=== PATIENT | female | born 1955 | race Caucasian/White ===

== ENCOUNTER 2017-10-09 14:57 | Inpatient (IN) | payer BC ==
[~2017-10-09] VITALS: Ht 157.5 cm; Wt 71.3 kg
[~2017-10-09 14:57] MED LIST: ALPR0.5T99 PO; LEXA20TA PO; LIPI40TA PO; OMEP20TA PO; TRAZ50TA4 PO
[2017-10-09 14:59] VITALS: BP 162/77; PULSE 132; RESP 19; TEMP 98.1; O2SAT 98
[2017-10-09] MEDS ORDERED: OMEP20TA93 PO (15:29)
[2017-10-09] MEDS ORDERED: TRAM50TA PO (15:29)
[2017-10-09] MEDS ORDERED: GABA300C5 PO (15:29)
[2017-10-09] MEDS ORDERED: ATOR20TA15 PO (15:29)
[2017-10-09] MEDS ORDERED: PREM0.3T2 PO (15:29)
[2017-10-09] MEDS ORDERED: DICY10 PO (15:29)
[2017-10-09] MEDS ORDERED: FENO160T PO (15:29)
[2017-10-09] MEDS ORDERED: GLIP5TAB8 PO (15:29)
[2017-10-09] MEDS ORDERED: LOSA50TA PO (15:29)
[2017-10-09] MEDS ORDERED: ALPR0.5T3 PO (15:29)
[2017-10-09] MEDS ORDERED: TRAZ100T10 PO (15:29)
[2017-10-09] MEDS ORDERED: METO1TAB42 PO (15:29)
[2017-10-09] MEDS ORDERED: DIATRIZOATE MEGLUM/DIATRIZOATE SOD 9 ML CUP ONE (15:44)
[2017-10-09] MEDS ORDERED: SODIUM CHLOR 0.9% 1000 ML INJ 1,000 ML IV SCH (15:48)
[2017-10-09 15:55] VITALS: O2SAT 96
[2017-10-09] MEDS ORDERED: MORPHINE SULFATE 4 MG/ML INJ IV PUSH ONE (16:00)
[2017-10-09] MEDS ORDERED: ONDANSETRON HCL 4 MG/2 ML VIAL IVP ONE (16:00)
[2017-10-09] MEDS ORDERED: SODIUM CHLORIDE 0.9% FLUSH 10 ML FLUSH IV FLUSH PRN ×2 (16:00→19:45)
--- NOTE | 2017-10-09 16:02 | PD ---
HPI Chief Complaint: Abdominal Pain Time Seen by Provider: 15:36 Travel History International Travel<30 days: No Contact w/Intl Traveler<30days: No Traveled to known affect area: No History of Present Illness HPI Diagnoses a 62-year-old female who presents today with complaints of abdominal pain 24 hours. Patient reports started in her lower suprapubic area and now has radiated up to her infraumbilical area. She reports the pain as sharp and colicky. She states that the pain is severe and an 8-10 out of 10 on the pain scale. She denies any vomiting. She reports nausea. The patient had recent carpal tunnel surgery and ulnar nerve release on her right upper extremity. She states at that time she was taking pain medicines. She states when she was taking the pain medicines, she had constipation. She reports that she would have to strain over her bowel movements at that time. She reports today that she had a normal soft stool. There is no reported dysuria, urgency, frequency. She denies any vaginal discharge or vaginal bleeding. Please note that she did have a D&C 2 and half months ago for polyps in her uterus. She states that shortly thereafter she had some blood clots passing from her vagina. She denies any clots or discharge for several weeks. There are no other complaints time my examination. PFSH Past Medical History Heart Rhythm Problems: No Cardiac Catheterization: No Cardiovascular Problems: No High Cholesterol: Yes Congestive Heart Failure: No Diabetes: Yes Patient Takes Glucophage: Yes GERD: Yes Immunizations Current: No Tetanus Vaccination: < 5 Years Influenza Vaccination: No ?: Not Menopausal: Yes Past Surgical History Cholecystectomy: Yes Coronary Artery Bypass Graft: No Social History Alcohol Use: Yes (OCC) Tobacco Use: No Substance Use: No Allergies-Medications (Allergen,Severity, Reaction): Coded Allergies: No Known Allergies (Unverified Adverse Reaction, Unknown, 10/09/17) Reported Meds & Prescriptions Reported Meds & Active Scripts Active Reported Bentyl (Dicyclomine HCl) 10 Mg Cap 10 Mg PO TID PRN Trazodone (Trazodone HCl) 100 Mg Tablet 100 Mg PO HS Tramadol (Tramadol HCl) 50 Mg Tab 50 Mg PO Q6H PRN Alprazolam 0.5 Mg Tab 0.5 Mg PO Q4H PRN Gabapentin 300 Mg Cap 300 Mg PO BID Metoprolol Succinate ER 24 HR (Metoprolol Succinate) 25 Mg Tab 25 Mg PO DAILY Fenofibrate 160 Mg Tab 160 Mg PO DAILY Atorvastatin (Atorvastatin Calcium) 20 Mg Tab 20 Mg PO HS Losartan (Losartan Potassium) 50 Mg Tab 50 Mg PO DAILY Prempro Blister Pack (Estrogens Conj/Medroxyprogest Acet) 0.3-1.5 Mg Tab 1 Tab PO DAILY Omeprazole 20 Mg Tab 20 Mg PO DAILY Glipizide 5 Mg Tab 2.5 Mg PO BIDAC Take 30 minutes before a meal Review of Systems Except as stated in HPI: all other systems reviewed are Neg General / Constitutional: No: Fever, Chills HENT: No: Headaches, Lightheadedness, Neck Pain Cardiovascular: No: Chest Pain or Discomfort, Palpitations Respiratory: No: Cough, Shortness of Breath Gastrointestinal: Positive: Nausea, Abdominal Pain, No: Vomiting, Diarrhea, Hematochezia Genitourinary: No: Frequency, Dysuria, Discharge, Vaginal Bleeding Musculoskeletal: Positive: Other (patient had carpal tunnel surgery and ulnar nerve release previously.), No: Weakness, Pain Skin: No Rash, No Lesions Neurologic: No: Weakness, Dizziness, Headache Physical Exam Narrative GENERAL: Well-developed well-nourished female in no obvious respiratory distress. SKIN: Focused skin assessment warm/dry. HEAD: Atraumatic. Normocephalic. EYES: Pupils equal and round. No scleral icterus. No injection or drainage. ENT: No nasal bleeding or discharge. Mucous membranes pink and moist. NECK: Trachea midline. No JVD. CARDIOVASCULAR: Sinus tach with a rate of 120. No murmur appreciated. RESPIRATORY: No accessory muscle use. Clear to auscultation. Breath sounds equal bilaterally. GASTROINTESTINAL: Abdomen soft, slightly distended. There is tenderness to palpation in her periumbilical and bilateral lower abdominal segment. There is no rebound but there is voluntary guarding. MUSCULOSKELETAL: No obvious deformities. No clubbing. No cyanosis. No edema. NEUROLOGICAL: Awake and alert. No obvious cranial nerve deficits. Motor grossly within normal limits. Normal speech. PSYCHIATRIC: Appropriate mood and affect; insight and judgment normal. Data Data Last Documented VS Vital Signs Date Time Temp Pulse Resp B/P (MAP) Pulse Ox O2 Delivery O2 Flow Rate FiO2 10/09/17 19:20 115 16 122/56 (78) 93 Room Air 10/09/17 14:59 98.1 Orders Orders Diatrizoate Liq (Md Tavares Liq) (10/09/17 15:44) Complete Blood Count With Diff (10/09/17 15:48) Comprehensive Metabolic Panel (10/09/17 15:48) Lipase (10/09/17 15:48) Urinalysis - C+S If Indicated (10/09/17 15:48) Ct Abd/Pel W Iv Contrast(Rout) (10/09/17 15:48) Iv Access Insert/Monitor (10/09/17 15:48) Ecg Monitoring (10/09/17 15:48) Oximetry (10/09/17 15:48) Morphine Inj (Morphine Inj) (10/09/17 16:00) Ondansetron Inj (Zofran Inj) (10/09/17 16:00) Sodium Chlor 0.9% 1000 Ml Inj (Ns 1000 M (10/09/17 15:48) Sodium Chloride 0.9% Flush (Ns Flush) (10/09/17 16:00) Oral Contrast - Adult (10/09/17 15:54) Hydromorphone Pf Inj (Dilaudid Pf Inj) (10/09/17 17:30) Iohexol 350 Inj (Omnipaque 350 Inj) (10/09/17 18:22) Levofloxacin 750 Mg Premix Inj (Levaquin (10/09/17 18:45) Metronidazole 500 Mg Inj (Flagyl 500 Mg (10/09/17 18:45) Hydromorphone Pf Inj (Dilaudid Pf Inj) (10/09/17 18:45) Admit Order (Ed Use Only) (10/09/17 19:32) Labs Laboratory Tests Test 10/09/17 15:30 10/09/17 16:30 White Blood Count 17.0 TH/MM3 Red Blood Count 5.31 MIL/MM3 Hemoglobin 14.3 GM/DL Hematocrit 41.8 % Mean Corpuscular Volume 78.6 FL Mean Corpuscular Hemoglobin 26.9 PG Mean Corpuscular Hemoglobin Concent 34.3 % Red Cell Distribution Width 13.6 % Platelet Count 331 TH/MM3 Mean Platelet Volume 8.6 FL Neutrophils (%) (Auto) 83.7 % Lymphocytes (%) (Auto) 10.1 % Monocytes (%) (Auto) 5.0 % Eosinophils (%) (Auto) 0.7 % Basophils (%) (Auto) 0.5 % Neutrophils # (Auto) 14.2 TH/MM3 Lymphocytes # (Auto) 1.7 TH/MM3 Monocytes # (Auto) 0.9 TH/MM3 Eosinophils # (Auto) 0.1 TH/MM3 Basophils # (Auto) 0.1 TH/MM3 CBC Comment DIFF FINAL Differential Comment Blood Urea Nitrogen 17 MG/DL Creatinine 0.68 MG/DL Random Glucose 133 MG/DL Total Protein 7.5 GM/DL Albumin 3.2 GM/DL Calcium Level 8.9 MG/DL Alkaline Phosphatase 77 U/L Aspartate Amino Transf (AST/SGOT) 52 U/L Alanine Aminotransferase (ALT/SGPT) 39 U/L Total Bilirubin 0.5 MG/DL Sodium Level 131 MEQ/L Potassium Level 4.2 MEQ/L Chloride Level 99 MEQ/L Carbon Dioxide Level 20.7 MEQ/L Anion Gap 11 MEQ/L Estimat Glomerular Filtration Rate 88 ML/MIN Lipase 206 U/L Urine Color LIGHT-YELLOW Urine Turbidity CLEAR Urine pH 5.0 Urine Specific Correll 1.009 Urine Protein NEG mg/dL Urine Glucose (UA) NEG mg/dL Urine Ketones NEG mg/dL Urine Occult Blood NEG Urine Nitrite NEG Urine Bilirubin NEG Urine Urobilinogen LESS THAN 2.0 MG/DL Urine Leukocyte Esterase NEG Urine Squamous Epithelial Cells <1 /hpf Microscopic Urinalysis Comment CULT NOT INDICATED MDM Medical Decision Making Medical Screen Exam Complete: Yes Emergency Medical Condition: Yes Differential Diagnosis Appendicitis versus diverticulitis versus cystitis Narrative Course 62-year-old female presents with complaints of abdominal pain. Patient reports severe abdominal pain started in the suprapubic area and his workup to the infraumbilical area. Patient is white count 17,000. Patient also has persistent tachycardia in the 120s. CT scan shows diverticulitis with no evidence of abscess or perforation. She is received 3 doses of IV pain medicine. She's been started on Levaquin and Flagyl. She does meet sepsis criteria by white count and tachycardia. Case was discussed with Dr. Shira Swain, [facility], who agrees with the admission. Sepsis Criteria SIRS Criteria (2 or more): Heart rate over 90, WBC > 60552, < 4000 or > 10% bands Sepsis Criteria (SIRS+source): Infect source susp/known Diagnosis Primary Impression: Acute diverticulitis Additional Impressions: Leukocytosis Intractable pain persistent tachycardia Admitting Information Admitting Physician Requests: Admit Qamar Briscoe MD Oct 09, 2017 16:02
[2017-10-09 16:29] LABS: AUTOMATED NEUTROPHIL # 14.2 TH/MM3 (1.8-7.7); BASOPHIL # 0.1 TH/MM3 (0-0.2); BASOPHIL % 0.5 % (0.0-2.0); EOSINOPHIL # 0.1 TH/MM3 (0-0.4); EOSINOPHIL % 0.7 % (0.0-4.0); HEMATOCRIT 41.8 % (35.0-46.0); HEMO FLAGS DIFF FINAL; LYMPH % 10.1 % (9.0-44.0); LYMPHOCYTE # 1.7 TH/MM3 (1.0-4.8); MEAN CELL VOLUME 78.6 FL (80.0-100.0); MEAN CORPUSCULAR HEMOGLOBIN 26.9 PG (27.0-34.0); MEAN CORPUSCULAR HGB CONC 34.3 % (32.0-36.0); NEUT % 83.7 % (16.0-70.0); PLATELET COUNT 331 TH/MM3 (150-450); RED BLOOD COUNT 5.31 MIL/MM3 (4.00-5.30); RED CELL DISTRIBUTION WIDTH 13.6 % (11.6-17.2)
[2017-10-09 16:59] LABS: ALKALINE PHOSPHATASE 77 U/L (45-117); TOTAL BILIRUBIN ADULT 0.5 MG/DL (0.2-1.0)
[2017-10-09 17:04] LABS: BLOOD, URINE NEG (NEG); COMMENT (UR) CULT NOT INDICATED; CULTURE IF INDICATED CULT NOT INDICATED; GLUCOSE,URINE NEG (NEG); KETONE, URINE NEG (NEG); NITRITE,URINE NEG (NEG); SQUAMOUS EPITHELIAL CELL URINE <1 /hpf (0-5); URINE COLOR LIGHT-YELLOW (YELLW/STRAW)
[2017-10-09 17:14] LABS: ALT (GPT) 39 U/L (10-53)
[2017-10-09 17:19] LABS: ANION GAP 11 MEQ/L (5-15); BICARBONATE 20.7 MEQ/L (21.0-32.0); BLOOD UREA NITROGEN 17 MG/DL (7-18); CHLORIDE 99 MEQ/L (98-107); GLOMERULAR FILTRATION RATE 88 ML/MIN (>89); SODIUM (NA) 131 MEQ/L (136-145)
[2017-10-09 17:20] LABS: AST (GOT) 52 U/L (15-37); POTASSIUM 4.2 MEQ/L (3.5-5.1)
[2017-10-09 17:29] VITALS: BP 120/56; PULSE 118; RESP 20; O2SAT 97
[2017-10-09] MEDS ORDERED: HYDROmorphone HCL PF 1 MG/ML VIAL IV PUSH ONE ×2 (17:30→18:45)
[2017-10-09] MEDS ORDERED: IOHEXOL 350 MG/ML 10 ML VIAL (for RAD DIAG) IVCONTRAST ONE (18:22)
--- NOTE | 2017-10-09 18:29 | RADRPT ---
EXAM DATE/TIME: 10/09/2017 18:06 [facility] COMPARISON: No previous studies available for comparison. INDICATIONS : Abdominal pain, nausea. IV CONTRAST: 96 cc Omnipaque 350 (iohexol) IV ORAL CONTRAST: Prescribed oral contrast ingested. RADIATION DOSE: 7.33 CTDIvol (mGy) MEDICAL HISTORY : Diabetes SURGICAL HISTORY : Cholecystectomy. ENCOUNTER: Initial ACUITY: 1 day PAIN SCALE: 8/10 LOCATION: middle abdomen TECHNIQUE: Volumetric scanning of the abdomen and pelvis was performed. Using automated exposure control and ad justment of the mA and/or kV according to patient size, radiation dose was kept as low as reasonably achievable to obtain optimal diagnostic quality images. DICOM format image data is available electro nically for review and comparison. FINDINGS: LOWER LUNGS: Bibasilar atelectasis. LIVER: Homogeneous density without lesion. There is no dilation of the biliary tree. Gallbladder is surgica lly absent. SPLEEN: Normal size without lesion. PANCREAS: Within normal limits. KIDNEYS: Normal in size and shape. There is no mass or hydronephrosis. Tiny bilateral cortical renal cysts. A 2 mm nonobstructing right renal stone involving the lower pole. ADRENAL GLANDS: Within normal limits. VASCULAR: There is no aortic aneurysm. BOWEL/MESENTERY: There is circumferential wall thickening and mild stranding in the adjacent fat involving the mid sig moid colon. Multiple diverticula are noted within this region. The colon is normal in caliber through out. Small bowel and stomach are unremarkable. No free air or free fluid. Note is made of some thicke phan of the omentum directly adjacent to the sigmoid colon within the anterior aspects of the periton eal cavity. No discrete nodularity or mass observed. This thickening is relatively smooth in appearan ce. ABDOMINAL WALL: Within normal limits. RETROPERITONEUM: There is no lymphadenopathy. BLADDER: No wall thickening or mass. REPRODUCTIVE: Within normal limits. INGUINAL: There is no lymphadenopathy or hernia. MUSCULOSKELETAL: Within normal limits for patient age. CONCLUSION: 1. Acute sigmoid diverticulitis without perforation, abscess, or obstruction. 2. Mild smooth thickening of the omentum adjacent to the inflammatory process within the sigmoid colo n. No discrete mass observed. This is felt to be reactive. 3. Prior cholecystectomy. 4. 2 mm nonobstructing right renal stone. Brian Leon Jr., MD on October 09, 2017 at 18:23 Board Certified Radiologist. This report was verified electronically.
[2017-10-09] MEDS ORDERED: LEVOFLOXACIN 750 MG PREMIX INJ 150 ML IV SCH (18:45)
[2017-10-09] MEDS ORDERED: metroNIDAZOLE 500 MG INJ 100 ML IV ONE (18:45)
[2017-10-09 19:20] VITALS: BP 122/56; PULSE 115; RESP 16; O2SAT 93
--- NOTE | 2017-10-09 19:41 | HHI.HP ---
HPI Service [facility] Primary Care Physician [facility] [place] Admission Diagnosis Diverticulitis, intractable pain, tachycardia, leukocytosis Diagnoses: (1) SIRS (systemic inflammatory response syndrome) Diagnosis: Principal (2) Diverticulitis Diagnosis: Principal (3) Dehydration Diagnosis: Principal (4) DM (diabetes mellitus) Diagnosis: Principal Travel History International Travel<30 Days: No Contact w/Intl Traveler <30 Da: No Traveled to Known Affected Are: No History of Present Illness This is a 62-year-old female with a PMH of HTN, Hyperlipidemia and DM who presented to the ER with complaints of abdominal pain x2 days w/ associated nausea, no vomiting. Denies fever, chills or diarrhea. On arrival, BP 120/56, HR 118, O2 sat 97% on RA, Afebrile. W WBC 17. Chemistry unremarkable. Her GFR 88. UA negative. CT Abd/Pelvis w/ acute sigmoid diverticulitis without perforation or abscess or obstruction, mild smooth thickening of omentum, no discrete abscess noted. S/p Levaquin/Flagyl in ER. Review of Systems Except as stated in HPI: all other systems reviewed are Neg ROS: 14 point review of systems otherwise negative. Past Family Social History Past Medical History PMH: HTN, Hyperlipidemia and DM Past Surgical History PAST SURGICAL HISTORY: Cholecystectomy Allergies: Coded Allergies: No Known Allergies (Unverified Adverse Reaction, Unknown, 10/09/17) Family History PAST FAMILY HISTORY: Reviewed. No h/o DM or CAD Social History PAST SOCIAL HISTORY: Occasional alcohol. Negative for tobacco or drugs. Physical Exam Vital Signs Vital Signs Date Time Temp Pulse Resp B/P (MAP) Pulse Ox O2 Delivery O2 Flow Rate FiO2 10/09/17 19:20 115 16 122/56 (78) 93 Room Air 10/09/17 17:29 118 20 120/56 (77) 97 Room Air 10/09/17 15:55 96 Room Air 10/09/17 15:20 18 10/09/17 14:59 98.1 132 19 162/77 (105) 98 Physical Exam PE: GENERAL: Pleasant middle-aged white female in no acute distress. HEENT: PERRLA, EOMI. No scleral icterus or conjunctival pallor. No lid lag or facial droop. CARDIOVASCULAR: Regular rate and rhythm. No obvious murmurs to auscultation. No chest tenderness to palpation. RESPIRATORY: No obvious rhonchi or wheezing. Clear to auscultation. Breath sounds equal bilaterally. GASTROINTESTINAL: Abdomen soft, generalized tenderness to palpation, nondistended. BS normal. MUSCULOSKELETAL: Extremities without clubbing, cyanosis, or edema. No obvious deformities. NEUROLOGICAL: Awake, alert and oriented x4. No focal neurologic deficits. Moving both upper and lower extremities spontaneously. Laboratory Laboratory Tests Test 10/09/17 15:30 10/09/17 16:30 White Blood Count 17.0 Red Blood Count 5.31 Hemoglobin 14.3 Hematocrit 41.8 Mean Corpuscular Volume 78.6 Mean Corpuscular Hemoglobin 26.9 Mean Corpuscular Hemoglobin Concent 34.3 Red Cell Distribution Width 13.6 Platelet Count 331 Mean Platelet Volume 8.6 Neutrophils (%) (Auto) 83.7 Lymphocytes (%) (Auto) 10.1 Monocytes (%) (Auto) 5.0 Eosinophils (%) (Auto) 0.7 Basophils (%) (Auto) 0.5 Neutrophils # (Auto) 14.2 Lymphocytes # (Auto) 1.7 Monocytes # (Auto) 0.9 Eosinophils # (Auto) 0.1 Basophils # (Auto) 0.1 CBC Comment DIFF FINAL Differential Comment Blood Urea Nitrogen 17 Creatinine 0.68 Random Glucose 133 Total Protein 7.5 Albumin 3.2 Calcium Level 8.9 Alkaline Phosphatase 77 Aspartate Amino Transf (AST/SGOT) 52 Alanine Aminotransferase (ALT/SGPT) 39 Total Bilirubin 0.5 Sodium Level 131 Potassium Level 4.2 Chloride Level 99 Carbon Dioxide Level 20.7 Anion Gap 11 Estimat Glomerular Filtration Rate 88 Lipase 206 Urine Color LIGHT-YELLOW Urine Turbidity CLEAR Urine pH 5.0 Urine Specific Leiter 1.009 Urine Protein NEG Urine Glucose (UA) NEG Urine Ketones NEG Urine Occult Blood NEG Urine Nitrite NEG Urine Bilirubin NEG Urine Urobilinogen LESS THAN 2.0 Urine Leukocyte Esterase NEG Urine Squamous Epithelial Cells <1 Microscopic Urinalysis Comment CULT NOT INDICATED Result Diagram: 10/09/17 15310/09/171529 Caprini VTE Risk Assessment Caprini VTE Risk Assessment: No/Low Risk (score <= 1) Caprini Risk Assessment Model Point Value = 1 Point Value = 2 Point Value = 3 Point Value = 5 Age 41-60 Minor surgery BMI > 25 kg/m2 Swollen legs Varicose veins or History of unexplained or recurrent spontaneous Oral contraceptives or hormone replacement Sepsis (< 1 month) Serious lung disease, including pneumonia (< 1 month) Abnormal pulmonary function Acute myocardial infarction Congestive heart failure (< 1 month) History of inflammatory bowel disease Medical patient at bed rest Age 61-74 Arthroscopic surgery Major open surgery (> 45 min) Laparoscopic surgery (> 45 min) Malignancy Confined to bed (> 72 hours) Immobilizing plaster cast Central venous access Age >= 75 History of VTE Family history of VTE Factor V Leiden Prothrombin [id number] Lupus anticoagulant Anticardiolipin antibodies Elevated serum homocysteine Heparin-induced thrombocytopenia Other congenital or acquired thrombophilia Stroke (< 1 month) Elective arthroplasty Hip, pelvis, or leg fracture Acute spinal cord injury (< 1 month) Prophylaxis Regimen Total Risk Factor Score Risk Level Prophylaxis Regimen 0-1 Low Early ambulation 2 Moderate Order ONE of the following: *Sequential Compression Device (SCD) *Heparin 5000 units SQ BID 3-4 Higher Order ONE of the following medications: *Heparin 5000 units SQ TID *Enoxaparin/Lovenox 40 mg SQ daily (WT < 150 kg, CrCl > 30 mL/min) *Enoxaparin/Lovenox 30 mg SQ daily (WT < 150 kg, CrCl > 10-29 mL/min) *Enoxaparin/Lovenox 30 mg SQ BID (WT < 150 kg, CrCl > 30 mL/min) AND/OR *Sequential Compression Device (SCD) 5 or more Highest Order ONE of the following medications: *Heparin 5000 units SQ TID (Preferred with Epidurals) *Enoxaparin/Lovenox 40 mg SQ daily (WT < 150 kg, CrCl > 30 mL/min) *Enoxaparin/Lovenox 30 mg SQ daily (WT < 150 kg, CrCl > 10-29 mL/min) *Enoxaparin/Lovenox 30 mg SQ BID (WT < 150 kg, CrCl > 30 mL/min) AND *Sequential Compression Device (SCD) Assessment and Plan Problem List: (1) SIRS (systemic inflammatory response syndrome) ICD Code: R65.10 - Systemic inflammatory response syndrome (SIRS) of non- infectious origin without acute organ dysfunction (2) Diverticulitis ICD Code: K57.92 - Diverticulitis of intestine, part unspecified, without perforation or abscess without bleeding (3) Dehydration ICD Code: E86.0 - Dehydration (4) DM (diabetes mellitus) ICD Code: E11.9 - Type 2 diabetes mellitus without complications Assessment and Plan A/P: 1. SIRS: HR 115, WBC 17, Source-Diverticulitis, s/p IV Abx in ER, will continue, repeat labs in am 2. Diverticulitis: acute onset of generalized abdominal pain, CT Abd/Pelvis w / acute sigmoid diverticulitis without perforation, abscess or obstruction. S/ p Levaquin/Flagyl in ER, will continue w/ IV Abx, analgesics/antiemetics as needed. 3. Dehydration: GFR 88. UA negative. IVF for hydration, repeat labs in a.m. 4. DM: Sliding scale with Accu-Cheks. Resume home Glipizide once taking adequate PO. 5. DVT Prophylaxis: SCD/teds. 6. overhead worker DC planning. 7. Case discussed at length with ER physician. Physician Certification 2 Midnight Certification Type: Admission for Inpatient Services Order for Inpatient Services The services are ordered in accordance with Medicare regulations or non- Medicare payer requirements, as applicable. In the case of services not specified as inpatient-only, they are appropriately provided as inpatient services in accordance with the 2-midnight benchmark. Estimated LOS (days): 2 days is the estimated time the patient will need to remain in the hospital, assuming treatment plan goals are met and no additional complications. Post-Hospital Plan: Home Shira Miramontes MD Oct 09, 2017 19:41
[2017-10-09] MEDS ORDERED: MAGNESIUM HYDROXIDE SUSP 30 ML CUP PO PRN (19:45)
[2017-10-09] MEDS ORDERED: MORPHINE SULFATE 4 MG/ML INJ IV PUSH PRN (19:45)
[2017-10-09] MEDS ORDERED: ALPRAZolam 0.5 MG TAB PO PRN (19:45)
[2017-10-09] MEDS ORDERED: SENNOSIDES 8.6 MG TAB PO PRN (19:45)
[2017-10-09] MEDS ORDERED: LACTULOSE SYRUP 20 GM/30 ML CUP PO PRN (19:45)
[2017-10-09] MEDS ORDERED: BISACODYL 10 MG SUPP RECTAL PRN (19:45)
[2017-10-09 20:01] VITALS: O2SAT 94
[2017-10-09 20:38] VITALS: BP 129/64; PULSE 100; RESP 16; TEMP 97.3; O2SAT 98
[2017-10-09] MEDS: ATORVASTATIN 20 MG TAB PO SCH (22:02)
[2017-10-09] MEDS: traZODone HCL 100 MG TAB PO SCH (22:03)
[2017-10-09] MEDS: DOCUSATE SODIUM 50 MG/SENNA 8.6 MG TAB PO SCH (22:03)
[2017-10-09] MEDS: GABAPENTIN 300 MG CAP PO SCH (22:04)
[2017-10-09] MEDS: SODIUM CHLOR 0.9% 1000 ML INJ 1,000 ML IV SCH (22:05)
[2017-10-09] MEDS: SODIUM CHLORIDE 0.9% FLUSH 10 ML FLUSH IV FLUSH SCH (22:05)
[2017-10-09] MEDS: ACETAMINOPHEN/HYDROcodone 325 MG/5 MG TAB PO PRN (22:17)
[2017-10-09] MEDS: PIPERACIL-TAZO 3.375 GM PREMIX 50 ML IV SCH (23:12)
[2017-10-10 00:10] VITALS: BP 118/59; PULSE 100; RESP 17; TEMP 97.4; O2SAT 95
[2017-10-10] MEDS: SODIUM CHLOR 0.9% 1000 ML INJ 1,000 ML IV SCH (03:46)
[2017-10-10] MEDS: ACETAMINOPHEN/HYDROcodone 325 MG/5 MG TAB PO PRN ×2 (03:46→08:30)
[2017-10-10 04:00] VITALS: BP 118/56; PULSE 96; RESP 17; TEMP 96.1; O2SAT 97
[2017-10-10] MEDS: PIPERACIL-TAZO 3.375 GM PREMIX 50 ML IV SCH (05:51)
[2017-10-10 07:04] LABS: ALKALINE PHOSPHATASE 58 U/L (45-117); ALT (GPT) 23 U/L (10-53); ANION GAP 11 MEQ/L (5-15); AST (GOT) 16 U/L (15-37); BICARBONATE 20.8 MEQ/L (21.0-32.0); BLOOD UREA NITROGEN 10 MG/DL (7-18); CHLORIDE 104 MEQ/L (98-107); GLOMERULAR FILTRATION RATE 108 ML/MIN (>89); POTASSIUM 3.6 MEQ/L (3.5-5.1); SODIUM (NA) 136 MEQ/L (136-145); TOTAL BILIRUBIN ADULT 0.5 MG/DL (0.2-1.0)
[2017-10-10 07:17] LABS: AUTOMATED NEUTROPHIL # 7.2 TH/MM3 (1.8-7.7); BASOPHIL % 0.3 % (0.0-2.0); EOSINOPHIL # 0.1 TH/MM3 (0-0.4); EOSINOPHIL % 1.4 % (0.0-4.0); HEMATOCRIT 33.5 % (35.0-46.0); HEMO FLAGS DIFF FINAL; LYMPH % 18.9 % (9.0-44.0); LYMPHOCYTE # 1.9 TH/MM3 (1.0-4.8); MEAN CELL VOLUME 77.7 FL (80.0-100.0); MEAN CORPUSCULAR HEMOGLOBIN 26.2 PG (27.0-34.0); MEAN CORPUSCULAR HGB CONC 33.7 % (32.0-36.0); MONO % 5.6 % (0.0-8.0); NEUT % 73.8 % (16.0-70.0); PLATELET COUNT 228 TH/MM3 (150-450); RED BLOOD COUNT 4.32 MIL/MM3 (4.00-5.30); RED CELL DISTRIBUTION WIDTH 13.8 % (11.6-17.2); WHITE BLOOD COUNT 9.8 TH/MM3 (4.0-11.0)
[2017-10-10 08:00] VITALS: BP 129/62; PULSE 97; RESP 17; TEMP 97.4; O2SAT 96
[2017-10-10] MEDS: ONDANSETRON HCL 4 MG/2 ML VIAL IVP PRN ×2 (08:28→13:43)
[2017-10-10] MEDS: METOPROLOL SUCCINATE 25 MG EXTENDED RELEASE TAB PO SCH (08:29)
[2017-10-10] MEDS: FENOFIBRATE 145 MG TAB PO SCH (08:29)
[2017-10-10] MEDS: LOSARTAN 50 MG TAB PO SCH (08:29)
[2017-10-10] MEDS: GABAPENTIN 300 MG CAP PO SCH ×2 (08:29→21:20)
[2017-10-10] MEDS: DOCUSATE SODIUM 50 MG/SENNA 8.6 MG TAB PO SCH ×2 (08:29→21:20)
[2017-10-10] MEDS: PANTOPRAZOLE SOD 20 MG DELAYED RELEASE TAB PO SCH (08:29)
[2017-10-10] MEDS: SODIUM CHLORIDE 0.9% FLUSH 10 ML FLUSH IV FLUSH SCH ×2 (08:31→21:20)
--- NOTE | 2017-10-10 09:22 | HHI.PR ---
Subjective Remarks Follow up diverticulitis, sepsis. Patient continues to have significant abdominal pain, worse in the left lower quadrant. Reports nausea, but no vomiting. No fever, chills, night sweats. Denies chest pain or dyspnea. Objective Vitals Vital Signs Date Time Temp Pulse Resp B/P (MAP) Pulse Ox O2 Delivery O2 Flow Rate FiO2 10/10/17 08:00 97.4 97 17 129/62 (84) 96 10/10/17 04:00 96.1 96 17 118/56 (76) 97 10/10/17 00:10 97.4 100 17 118/59 (78) 95 10/09/17 20:38 97.3 100 16 129/64 (85) 98 10/09/17 20:06 10/09/17 20:01 94 Nasal Cannula 2.00 10/09/17 19:20 115 16 122/56 (78) 93 Room Air 10/09/17 17:29 118 20 120/56 (77) 97 Room Air 10/09/17 15:55 96 Room Air 10/09/17 15:20 18 10/09/17 14:59 98.1 132 19 162/77 (105) 98 I/O 10/09/17 10/09/17 10/09/17 10/10/17 10/10/17 10/10/17 07:00 15:00 23:00 07:00 15:00 23:00 Intake Total 1000 ml 1319 ml Balance 1000 ml 1319 ml Intake Oral 480 ml IV Total 1000 ml 839 ml # Voids 2 Result Diagram: 10/10/17 0530 10/10/17 0530 Imaging Last Impressions Abdomen/Pelvis CT 10/09/17 1548 Signed Impressions: Service Date/Time: Monday, October 09, 2017 18:06 - CONCLUSION: 1. Acute sigmoid diverticulitis without perforation, abscess, or obstruction. 2. Mild smooth thickening of the omentum adjacent to the inflammatory process within the sigmoid colon. No discrete mass observed. This is felt to be reactive. 3. Prior cholecystectomy. 4. 2 mm nonobstructing right renal stone. Brian Leon Jr., MD Objective Remarks General: No acute distress. Heart: Regular rate and rhythm. No murmur. Lungs: Clear to auscultation bilaterally. No wheezes, rales, or rhonchi. Breathing is nonlabored. Abdomen: Soft, tender to palpation diffusely (greater in the left lower quadrant ), nondistended. Extremities: No lower extremity edema. Psych: Alert and oriented. Procedures None Urinary Catheter: No Vascular Central Line Catheter: No A/P Problem List: (1) Diverticulitis ICD Code: K57.92 - Diverticulitis of intestine, part unspecified, without perforation or abscess without bleeding (2) Dehydration ICD Code: E86.0 - Dehydration (3) DM (diabetes mellitus) ICD Code: E11.9 - Type 2 diabetes mellitus without complications (4) Sepsis ICD Code: A41.9 - Sepsis, unspecified organism Assessment and Plan 1. Sepsis: Patient met criteria upon admission with tachycardia, leukocytosis. Leukocytosis has resolved. Tachycardia has improved. Source is diverticulitis. Continue IV antibiotics. 2. Diverticulitis: CT abdomen/pelvis shows acute sigmoid diverticulitis without perforation/abscess/obstruction. Continue Levaquin, Flagyl. Continue pain control, anti-emetics. 3. Dehydration: Continue IV fluids. Improving. 4. Diabetes mellitus: Monitor Accu-Cheks and cover with sliding scale insulin. Hold glipizide until patient's oral intake is adequate. 5. DVT prophylaxis: TEMI Cheney. Maximo Hendrix MD Oct 10, 2017 09:22
[2017-10-10] MEDS: NS + KCL 20 MEQ INJ 1,000 ML IV SCH ×2 (10:20→17:45)
[2017-10-10] MEDS: metroNIDAZOLE 500 MG INJ 100 ML IV SCH ×2 (10:20→17:44)
[2017-10-10 11:35] VITALS: BP 130/62; PULSE 100; RESP 17; TEMP 97.3; O2SAT 92
[2017-10-10] MEDS: LEVOFLOXACIN 750 MG PREMIX INJ 150 ML IV SCH (11:43)
[2017-10-10] MEDS: LOW DOSE INSULIN NOVOLOG SUPPLEMENTAL SCALE SQ SCH ×3 (13:42→21:20)
[2017-10-10] MEDS: ACETAMINOPHEN 325 MG TAB PO PRN (13:43)
[2017-10-10] MEDS ORDERED: DEXTROSE 50% IN WATER 50 ML VIAL(D50) IV PUSH PRN (13:45)
[2017-10-10] MEDS ORDERED: GLUCAGON 1 MG/ML VIAL OTHER PRN (13:45)
[2017-10-10 16:00] VITALS: BP 137/76; PULSE 101; RESP 17; TEMP 97.6; O2SAT 92
[2017-10-10] MEDS ORDERED: PROMETHAZINE INJ 25 MG/ML VIAL IM ONE (19:45)
[2017-10-10 20:10] VITALS: BP 147/70; PULSE 105; RESP 18; TEMP 97.7; O2SAT 94
[2017-10-10] MEDS: ATORVASTATIN 20 MG TAB PO SCH (21:20)
[2017-10-10] MEDS: traZODone HCL 100 MG TAB PO SCH (21:20)
[2017-10-11 00:40] VITALS: BP 130/60; PULSE 107; RESP 18; TEMP 99.1; O2SAT 94
[2017-10-11] MEDS: ONDANSETRON HCL 4 MG/2 ML VIAL IVP PRN (03:57)
[2017-10-11] MEDS: metroNIDAZOLE 500 MG INJ 100 ML IV SCH ×2 (03:58→10:19)
[2017-10-11] MEDS: NS + KCL 20 MEQ INJ 1,000 ML IV SCH ×2 (04:02→10:21)
[2017-10-11 04:44] VITALS: BP 126/57; PULSE 109; RESP 18; TEMP 99.2; O2SAT 94
[2017-10-11] MEDS: ACETAMINOPHEN 325 MG TAB PO PRN (05:58)
[2017-10-11 07:06] LABS: AUTOMATED NEUTROPHIL # 7.1 TH/MM3 (1.8-7.7); BASOPHIL # 0.1 TH/MM3 (0-0.2); BASOPHIL % 0.6 % (0.0-2.0); EOSINOPHIL # 0.1 TH/MM3 (0-0.4); EOSINOPHIL % 0.7 % (0.0-4.0); HEMATOCRIT 35.9 % (35.0-46.0); HEMO FLAGS DIFF FINAL; LYMPH % 15.5 % (9.0-44.0); LYMPHOCYTE # 1.4 TH/MM3 (1.0-4.8); MEAN CELL VOLUME 78.6 FL (80.0-100.0); MEAN CORPUSCULAR HEMOGLOBIN 26.3 PG (27.0-34.0); MEAN CORPUSCULAR HGB CONC 33.5 % (32.0-36.0); NEUT % 77.2 % (16.0-70.0); PLATELET COUNT 235 TH/MM3 (150-450); RED BLOOD COUNT 4.56 MIL/MM3 (4.00-5.30); RED CELL DISTRIBUTION WIDTH 13.8 % (11.6-17.2); WHITE BLOOD COUNT 9.3 TH/MM3 (4.0-11.0)
[2017-10-11 07:27] LABS: BICARBONATE 22.7 MEQ/L (21.0-32.0); POTASSIUM 3.3 MEQ/L (3.5-5.1)
[2017-10-11] MEDS: PANTOPRAZOLE SOD 20 MG DELAYED RELEASE TAB PO SCH (07:42)
[2017-10-11] MEDS: FENOFIBRATE 145 MG TAB PO SCH (07:42)
[2017-10-11] MEDS: GABAPENTIN 300 MG CAP PO SCH (07:42)
[2017-10-11] MEDS: METOPROLOL SUCCINATE 25 MG EXTENDED RELEASE TAB PO SCH (07:42)
[2017-10-11] MEDS: DOCUSATE SODIUM 50 MG/SENNA 8.6 MG TAB PO SCH (07:42)
[2017-10-11] MEDS: LOSARTAN 50 MG TAB PO SCH (07:42)
[2017-10-11] MEDS: LEVOFLOXACIN 750 MG PREMIX INJ 150 ML IV SCH (07:43)
[2017-10-11] MEDS: LOW DOSE INSULIN NOVOLOG SUPPLEMENTAL SCALE SQ SCH ×2 (07:43→11:10)
[2017-10-11] MEDS: SODIUM CHLORIDE 0.9% FLUSH 10 ML FLUSH IV FLUSH SCH (07:43)
[2017-10-11 08:00] VITALS: BP 124/66; PULSE 95; RESP 18; TEMP 98.2; O2SAT 90
[2017-10-11] MEDS ORDERED: CIPR500T2 PO (11:32)
[2017-10-11] MEDS ORDERED: METR1TAB76 PO (11:32)
--- NOTE | 2017-10-11 11:32 | HHI.DCPOC ---
Discharge Care Plan Diagnosis: (1) Sepsis (2) DM (diabetes mellitus) (3) Diverticulitis Goals to Promote Your Health * To prevent worsening of your condition and complications * To maintain your health at the optimal level Directions to Meet Your Goals Take your medications as prescribed Follow your dietary instruction Follow activity as directed Keep your appointments as scheduled Take your immunizations and boosters as scheduled If your symptoms worsen call your PCP, if no PCP go to Urgent Care Center or Emergency Room Smoking is Dangerous to Your Health. Avoid second hand smoke Call the 24-hour hour crisis hotline for domestic abuse at Maximo Hendrix MD Oct 11, 2017 11:32
--- NOTE | 2017-10-11 11:35 | HHI.PR ---
Subjective Remarks Follow-up diverticulitis. Patient states that her abdominal pain is much better. No more nausea or vomiting. She is having loose stools. She wants to go home today. She is tolerating regular diet. Objective Vitals Vital Signs Date Time Temp Pulse Resp B/P (MAP) Pulse Ox O2 Delivery O2 Flow Rate FiO2 10/11/17 08:00 98.2 95 18 124/66 (85) 90 10/11/17 04:44 99.2 109 18 126/57 (80) 94 10/11/17 00:40 99.1 107 18 130/60 (83) 94 10/10/17 20:10 97.7 105 18 147/70 (95) 94 10/10/17 16:00 97.6 101 17 137/76 (96) 92 10/10/17 11:35 97.3 100 17 130/62 (84) 92 I/O 10/10/17 10/10/17 10/10/17 10/11/17 10/11/17 10/11/17 07:00 15:00 23:00 07:00 15:00 23:00 Intake Total 1319 ml 420 ml 783 ml 460 ml Balance 1319 ml 420 ml 783 ml 460 ml Intake Oral 480 ml 420 ml 240 ml 360 ml IV Total 839 ml 543 ml 100 ml # Voids 2 3 2 2 # Bowel Movements 0 2 1 Result Diagram: 10/11/17 0457 10/11/17 0457 Imaging Last Impressions Abdomen/Pelvis CT 10/09/17 1548 Signed Impressions: Service Date/Time: Monday, October 09, 2017 18:06 - CONCLUSION: 1. Acute sigmoid diverticulitis without perforation, abscess, or obstruction. 2. Mild smooth thickening of the omentum adjacent to the inflammatory process within the sigmoid colon. No discrete mass observed. This is felt to be reactive. 3. Prior cholecystectomy. 4. 2 mm nonobstructing right renal stone. Brian Leon Jr., MD Objective Remarks General: No acute distress. Heart: Regular rate and rhythm. No murmur. Lungs: Clear to auscultation bilaterally. No wheezes, rales, or rhonchi. Breathing is nonlabored. Abdomen: Soft, mild diffuse tenderness to palpation without rebound or guarding , nondistended. Extremities: No lower extremity edema. Psych: Alert and oriented. Procedures None Urinary Catheter: No Vascular Central Line Catheter: No A/P Problem List: (1) Diverticulitis ICD Code: K57.92 - Diverticulitis of intestine, part unspecified, without perforation or abscess without bleeding (2) Dehydration ICD Code: E86.0 - Dehydration (3) DM (diabetes mellitus) ICD Code: E11.9 - Type 2 diabetes mellitus without complications (4) Sepsis ICD Code: A41.9 - Sepsis, unspecified organism Assessment and Plan 1. Sepsis: Resolved. Patient met criteria upon admission with tachycardia, leukocytosis. Leukocytosis has resolved. Source is diverticulitis. Continue IV antibiotics. 2. Diverticulitis: Improving. CT abdomen/pelvis shows acute sigmoid diverticulitis without perforation/abscess/obstruction. Continue antibiotics. Continue pain control, anti-emetics. 3. Dehydration: Improved. 4. Diabetes mellitus: Monitor Accu-Cheks and cover with sliding scale insulin. Restart glipizide at discharge. 5. DVT prophylaxis: TEMI [place]ney. Discharge Planning Discharge home in stable condition. Follow-up with PCP as scheduled this week. Regular diet as tolerated. Activity as tolerated. Maximo Hendrix MD Oct 11, 2017 11:35
== END 2017-10-11 12:55 | disposition home or self-care (01) | DRG 872 ==
LOC: NEPC 14:57 → NEDA 19:35 → N06A 20:09
PROVIDERS: ADMIT Hospitalist; ATTEND Family Medicine
DX: A41.9 Sepsis, unspecified organism (principal); K57.32 Diverticulitis of large intestine without perforation or abscess without bleeding; I10 Essential (primary) hypertension; E11.9 Type 2 diabetes mellitus without complications; E86.0 Dehydration; E78.5 Hyperlipidemia, unspecified; K21.9 Gastro-esophageal reflux disease without esophagitis; Z79.84 Long term (current) use of oral hypoglycemic drugs
CPT/HCPCS: 74177; 80048; 80053; 81001; 82948; 83690; 85025; 96361; 96374; 96375; 96376; J1170; J1815; J1956; J2270; J2405; J2543; J2550; J3480; J7030; Q9963; Q9967

== ENCOUNTER 2018-03-05 16:17 | Inpatient (IN) | payer BC ==
[~2018-03-05] VITALS: Ht 157.5 cm; Wt 78.1 kg
[~2018-03-05 16:17] MED LIST changes: +ALPR0.5T3 PO; -ALPR0.5T99 PO; +ATOR20TA15 PO; +CIPR500T2 PO; +DICY10 PO; +FENO160T PO; +GABA300C5 PO; +GLIP5TAB8 PO; -LEXA20TA PO; -LIPI40TA PO; +LOSA50TA PO; +METO1TAB42 PO; +METR1TAB76 PO; -OMEP20TA PO; +OMEP20TA93 PO; +PREM0.3T2 PO; +TRAM50TA PO; +TRAZ100T10 PO; -TRAZ50TA4 PO
[2018-03-05 16:23] VITALS: BP 136/84; PULSE 124; RESP 22; TEMP 97.6; O2SAT 99
[2018-03-05 16:53] VITALS: BP 156/77; PULSE 123; RESP 18; O2SAT 97
[2018-03-05] MEDS ORDERED: PANTOPRAZOLE SOD 40 MG DELAYED RELEASE TAB PO ONE (17:00)
[2018-03-05] MEDS ORDERED: ALUMINUM/MAGNESIUM/SIMETH 30 ML CUP PO ONE (17:00)
[2018-03-05] MEDS ORDERED: ATROPINE/SCOPOLAM/HYOSCYAM/PB ELIXIR 10 ML CUP PO ONE (17:00)
--- NOTE | 2018-03-05 17:09 | PD ---
HPI Chief Complaint: Chest Pain Time Seen by Provider: 16:51 Travel History International Travel<30 days: No Contact w/Intl Traveler<30days: No Traveled to known affect area: No History of Present Illness HPI 62-year-old female complains of chest pain and epigastric abdominal pain. Patient states that the pain started this morning. Patient states that she has indigestion since this morning. Patient complained of burning pain and aching pain started in the epigastric area with radiation to the back. Patient states that she has nausea but no vomiting or diarrhea. Patient has history of irritable bowel syndrome and peptic ulcer and diverticulitis in the past. Patient status post cholecystectomy. Patient also has history hypertension, diabetes, hyperlipidemia. Patient quit smoking 19 months ago. Patient denies family history of heart disease. PFSH Past Medical History Depression: Yes Heart Rhythm Problems: No Cancer: No Cardiac Catheterization: No Cardiovascular Problems: Yes High Cholesterol: Yes Congestive Heart Failure: No Diabetes: Yes Patient Takes Glucophage: No Diverticulitis: Yes Endocrine: Yes GERD: Yes Genitourinary: Yes Hypertension: Yes Immune Disorder: No Kidney Stones: Yes Musculoskeletal: No Neurologic: No Psychiatric: Yes Reproductive: No Respiratory: No Immunizations Current: No Menopausal: Yes Past Surgical History Abdominal Surgery: Yes (choly) Cholecystectomy: Yes Coronary Artery Bypass Graft: No Gynecologic Surgery: Yes (d&c) Social History Alcohol Use: Yes (OCC) Tobacco Use: No Substance Use: No Allergies-Medications (Allergen,Severity, Reaction): Coded Allergies: No Known Allergies (Unverified Adverse Reaction, Unknown, 10/09/17) Reported Meds & Prescriptions Reported Meds & Active Scripts Active Reported Bentyl (Dicyclomine HCl) 10 Mg Cap 10 Mg PO TID PRN Trazodone (Trazodone HCl) 100 Mg Tablet 100 Mg PO HS Tramadol (Tramadol HCl) 50 Mg Tab 50 Mg PO Q6H PRN Alprazolam 0.5 Mg Tab 0.5 Mg PO Q4H PRN Gabapentin 300 Mg Cap 120 Mg PO HS Metoprolol Succinate ER 24 HR (Metoprolol Succinate) 25 Mg Tab 25 Mg PO DAILY Fenofibrate 160 Mg Tab 160 Mg PO DAILY Atorvastatin (Atorvastatin Calcium) 20 Mg Tab 20 Mg PO HS Losartan (Losartan Potassium) 50 Mg Tab 50 Mg PO DAILY Prempro Blister Pack (Estrogens Conj/Medroxyprogest Acet) 0.3-1.5 Mg Tab 1 Tab PO DAILY Omeprazole 20 Mg Tab 20 Mg PO DAILY Glipizide 5 Mg Tab 2.5 Mg PO BIDAC Take 30 minutes before a meal Review of Systems General / Constitutional: No: Fever Eyes: No: Visual changes HENT: No: Headaches Cardiovascular: Positive: Chest Pain or Discomfort Respiratory: No: Shortness of Breath Gastrointestinal: Positive: Nausea, Abdominal Pain Genitourinary: No: Dysuria Musculoskeletal: No: Pain Skin: No Rash Neurologic: No: Weakness Psychiatric: No: Depression Endocrine: No: Polydipsia Hematologic/Lymphatic: No: Easy Bruising Physical Exam Narrative GENERAL: Well-nourished, well-developed patient. SKIN: Focused skin assessment warm/dry. HEAD: Normocephalic. EYES: No scleral icterus. No injection or drainage. NECK: Supple, trachea midline. No JVD or lymphadenopathy. CARDIOVASCULAR: Regular rate and rhythm without murmurs, gallops, or rubs. RESPIRATORY: Breath sounds equal bilaterally. No accessory muscle use. GASTROINTESTINAL: Abdomen soft, nondistended. Patient has moderate tenderness on palpation epigastric area. No rebound tenderness. No mass. MUSCULOSKELETAL: No cyanosis, or edema. BACK: Nontender without obvious deformity. No CVA tenderness. Neurologic exam normal. Data Data Last Documented VS Vital Signs Date Time Temp Pulse Resp B/P (MAP) Pulse Ox O2 Delivery O2 Flow Rate FiO2 03/05/18 16:53 123 18 156/77 (103) 97 Room Air 03/05/18 16:23 97.6 Orders Orders Electrocardiogram (03/05/18 17:00) Complete Blood Count With Diff (03/05/18 17:00) Comprehensive Metabolic Panel (03/05/18 17:00) Creatine Kinase (Cpk) (03/05/18 17:00) Troponin I (03/05/18 17:00) Prothrombin Time / Inr (Pt) (03/05/18 17:00) Act Partial Throm Time (Ptt) (03/05/18 17:00) Lipase (03/05/18 17:00) Urinalysis - C+S If Indicated (03/05/18 17:00) Chest, Single Ap (03/05/18 17:00) Ct Abd/Pel W Iv Contrast(Rout) (03/05/18 17:00) Iv Access Insert/Monitor (03/05/18 17:00) Ecg Monitoring (03/05/18 17:00) Oximetry (03/05/18 17:00) Sodium Chlor 0.9% 1000 Ml Inj (Ns 1000 M (03/05/18 17:00) Pantoprazole (Protonix) (03/05/18 17:00) Al-Mag Hy-Si 40-40-4 Mg/Ml Liq (Mag-Al P (03/05/18 17:00) Sjsws-Udaxeb-Vdqpbp-Pb Liq ( Liq (03/05/18 17:00) MDM Medical Decision Making Medical Screen Exam Complete: Yes Emergency Medical Condition: Yes Differential Diagnosis Differential diagnosis including angina, FL, PE, pneumothorax, gastritis, PUD, pancreatitis, colitis, UTI, pyelonephritis, nephrolithiasis. Narrative Course 62-year-old female with complaints of epigastric abdominal pain and chest pain. Normal saline solution 1 25 cc an hour. Protonix 40 mg p.o. Maalox 30 cc p.o. 10 cc p.o. Martin Patel MD Mar 05, 2018 17:09
[2018-03-05] MEDS: SODIUM CHLOR 0.9% 1000 ML INJ 1,000 ML IV SCH (17:20)
--- NOTE | 2018-03-05 17:34 | RADRPT ---
EXAM DATE/TIME: 03/05/2018 17:06 [facility] COMPARISON: No previous studies available for comparison. INDICATIONS : Chest pain. Shortness of breath. MEDICAL HISTORY : Hypertension. Diabetes. SURGICAL HISTORY : None. ENCOUNTER: Initial ACUITY: 1 day PAIN SCORE: 4/10 LOCATION: Bilateral chest FINDINGS: A single view of the chest demonstrates the lungs to be symmetrically aerated without evidence of mas s, infiltrate or effusion. There is a thin horizontal linear area of opacity in the lower lateral le ft lung which may represent scarring or atelectasis. The cardiomediastinal contours are unremarkable . Osseous structures are intact. CONCLUSION: Linear atelectasis or scar lower lateral left lung. The remainder of the lungs are clear. Brian Salinas MD on March 05, 2018 at 17:31 Board Certified Radiologist. This report was verified electronically.
[2018-03-05] MEDS ORDERED: MORPHINE SULFATE 2 MG/ML SYRINGE IV PUSH ONE ×2 (18:00→21:00)
[2018-03-05] MEDS ORDERED: ONDANSETRON HCL 4 MG/2 ML VIAL IV PUSH ONE ×2 (18:00→22:45)
[2018-03-05 18:20] LABS: MEAN PLATELET VOLUME 8.7 FL (7.0-11.0); PLATELET COUNT 322 TH/MM3 (150-450); RED CELL DISTRIBUTION WIDTH 14.9 % (11.6-17.2); WHITE BLOOD COUNT 15.2 TH/MM3 (4.0-11.0)
[2018-03-05 18:24] LABS: HEMATOCRIT 35.1 % (35.0-46.0); HEMOGLOBIN 14.1 GM/DL (11.6-15.3); MEAN CELL VOLUME 77.9 FL (80.0-100.0)
[2018-03-05 18:25] LABS: MEAN CORPUSCULAR HEMOGLOBIN 31.1 PG (27.0-34.0); RED BLOOD COUNT 4.51 MIL/MM3 (4.00-5.30)
[2018-03-05 19:01] LABS: BANDS 2 % (0-6); LYMPHOCYTES 18 % (9-44); MONOCYTES 4 % (0-8); NEUTROPHIL # MANUAL DIFF 11.9 TH/MM3 (1.8-7.7); POLYS (SEG NEUTROPHILS) 76 % (16-70)
[2018-03-05 19:10] LABS: BILIRUBIN, URINE NEG (NEG); BLOOD, URINE MOD (NEG); GLUCOSE,URINE 150 mg/dL (NEG); KETONE, URINE 10 mg/dL (NEG); NITRITE,URINE NEG (NEG); PH, URINE 5.5 (5.0-8.5); SQUAMOUS EPITHELIAL CELL URINE 1 /hpf (0-5); URINE COLOR COLORLESS (YELLW/STRAW); URINE LEUKOCYTE ESTERASE SMALL (NEG)
[2018-03-05] MEDS ORDERED: SODIUM CHLOR 0.9% 1000 ML INJ 1,000 ML IV ONE (19:15)
[2018-03-05 20:59] LABS: INTERNATIONAL NORMALIZED RATIO 0.9 RATIO; PROTHROMBIN TIME - PATIENT 9.3 SEC (9.8-11.6)
[2018-03-05 21:27] LABS: ALBUMIN 2.8 GM/DL (3.4-5.0); ALKALINE PHOSPHATASE 75 U/L (45-117); ALT (GPT) LESS THAN 60 U/L (10-53); BICARBONATE 13.5 MEQ/L (21.0-32.0); BLOOD UREA NITROGEN 10 MG/DL (7-18); CALCIUM 7.3 MG/DL (8.5-10.1); CHLORIDE 100 MEQ/L (98-107); CREATININE 0.71 MG/DL (0.50-1.00); GLOMERULAR FILTRATION RATE 84 ML/MIN (>89); GLUCOSE,RANDOM 195 MG/DL (74-106); SODIUM (NA) 131 MEQ/L (136-145); TOTAL BILIRUBIN ADULT 0.5 MG/DL (0.2-1.0); TOTAL PROTEIN 6.9 GM/DL (6.4-8.2); TROPONIN I LESS THAN 0.02 NG/ML (0.02-0.05)
[2018-03-05] MEDS ORDERED: HYDROmorphone HCL PF 2 MG/ML VIAL IV PUSH ONE (21:30)
[2018-03-05 21:35] LABS: CALCIUM-PROTEIN CORRECTED 7.4 MG/DL (8.5-10.1)
[2018-03-05 21:42] LABS: AST (GOT) 69 U/L (15-37)
[2018-03-05 22:00] VITALS: BP 125/57; PULSE 115; RESP 18; O2SAT 89
[2018-03-05 22:01] VITALS: O2SAT 94
[2018-03-05] MEDS ORDERED: IOHEXOL 350 MG/ML 10 ML VIAL (for RAD DIAG) IVCONTRAST ONE (22:42)
--- NOTE | 2018-03-05 22:55 | RADRPT ---
EXAM DATE/TIME: 03/05/2018 22:28 [facility] COMPARISON: No previous studies available for comparison. INDICATIONS : Midsternal chest pain with shortness of breath. IV CONTRAST: 100 cc Omnipaque 350 (iohexol) IV ; Cumulative dose for multiple exams. RADIATION DOSE: 8.82 CTDIvol (mGy) MEDICAL HISTORY : Hypertension. Gastroesophageal reflux disease. Cardiovascular diseaseDiabetes. Renal calculi. SURGICAL HISTORY : Cholecystectomy. ENCOUNTER: Initial ACUITY: 1 day PAIN SCALE: 8/10 LOCATION: medial chest TECHNIQUE: Volumetric scanning of the chest was performed using a pulmonary embolism protocol MIP images were re constructed. Using automated exposure control and adjustment of the mA and/or kV according to patien t size, radiation dose was kept as low as reasonably achievable to obtain optimal diagnostic quality images. DICOM format image data is available electronically for review and comparison. Follow-up recommendations for detected pulmonary nodules are based at a minimum on nodule size and pa tient risk factors according to Fleischner Society Guidelines. FINDINGS: Course interstitial changes with consolidation in both lung base this. This is associated with moder ate peribronchial thickening. There is no axillary adenopathy. There is no mediastinal adenopathy. There is no evidence for centr al pulmonary emboli. Moderate fatty replacement of the liver. CONCLUSION: Peribronchial thickening with moderate bibasilar parenchymal changes suggesting chronic bronchitis. Negative for central pulmonary emboli. Valentin Uriarte MD FACR on March 05, 2018 at 22:50 Board Certified Radiologist. This report was verified electronically.
--- NOTE | 2018-03-05 23:28 | RADRPT ---
EXAM DATE/TIME: 03/05/2018 22:28 [facility] COMPARISON: CT ABDOMEN & PELVIS W CONTRAST, October 09, 2017, 18:06. INDICATIONS : Epigastric pain. IV CONTRAST: 100 cc Omnipaque 350 (iohexol) IV ; Cumulative dose for multiple exams. ORAL CONTRAST: No oral contrast ingested. RADIATION DOSE: 16.36 CTDIvol (mGy) MEDICAL HISTORY : Cardiovascular disease. Hypertension. Gastroesophageal reflux disease.Renal calculi. Diabetes. SURGICAL HISTORY : Cholecystectomy. ENCOUNTER: Initial ACUITY: 1 day PAIN SCALE: 8/10 LOCATION: Bilateral upper quadrant TECHNIQUE: Volumetric scanning of the abdomen and pelvis was performed. Using automated exposure control and ad justment of the mA and/or kV according to patient size, radiation dose was kept as low as reasonably achievable to obtain optimal diagnostic quality images. DICOM format image data is available electro nically for review and comparison. FINDINGS: LOWER LUNGS: Patchy atelectasis or consolidation at the inferior lower lobes bilaterally. LIVER: Diffuse hepatic steatosis unchanged. Status post cholecystectomy. SPLEEN: Normal size without lesion. PANCREAS: Moderate edema/ill-defined fluid in the peripancreatic fat adjacent to the pancreatic head. No organi ze rounded peripherally enhancing fluid collections. No nonenhancing pancreatic parenchyma identified . KIDNEYS: Punctate nonobstructing calculus in the lower pole of the right kidney is unchanged. Bilateral nonenh ancing cysts are unchanged. No evidence of hydronephrosis. ADRENAL GLANDS: Within normal limits. VASCULAR: Aortic calcification. Aortic diameter within normal limits. BOWEL/MESENTERY: Numerous colonic diverticula concentrated in the sigmoid region. No evidence of acute diverticulitis. Appendix within normal limits. ABDOMINAL WALL: Within normal limits. RETROPERITONEUM: There is no lymphadenopathy. BLADDER: No wall thickening or mass. REPRODUCTIVE: Heterogeneous enlarged uterus indicating fibroids. INGUINAL: There is no lymphadenopathy or hernia. MUSCULOSKELETAL: Mild osteoarthritic findings of the hips. Bone island in the right pubic body unchanged. CONCLUSION: 1. Moderate severity peripancreatic edema indicating acute pancreatitis in the proper clinical settin g. No organized drainable fluid collections identified. 2. Nonobstructing right renal calculus unchanged. 3. Colonic diverticulosis with no evidence of acute diverticulitis. 4. Fibroid uterus. Juan White MD on March 05, 2018 at 23:20 Board Certified Radiologist. This report was verified electronically.
--- NOTE | 2018-03-05 23:41 | PD ---
Data Data Last Documented VS Vital Signs Date Time Temp Pulse Resp B/P (MAP) Pulse Ox O2 Delivery O2 Flow Rate FiO2 03/05/18 17:14 (103) Room Air 03/05/18 16:53 123 18 97 03/05/18 16:23 97.6 Orders Orders Electrocardiogram (03/05/18 17:00) Complete Blood Count With Diff (03/05/18 17:00) Comprehensive Metabolic Panel (03/05/18 17:00) Creatine Kinase (Cpk) (03/05/18 17:00) Troponin I (03/05/18 17:00) Prothrombin Time / Inr (Pt) (03/05/18 17:00) Act Partial Throm Time (Ptt) (03/05/18 17:00) Lipase (03/05/18 17:00) Urinalysis - C+S If Indicated (03/05/18 17:00) Chest, Single Ap (03/05/18 17:00) Ct Abd/Pel W Iv Contrast(Rout) (03/05/18 17:00) Iv Access Insert/Monitor (03/05/18 17:00) Ecg Monitoring (03/05/18 17:00) Oximetry (03/05/18 17:00) Sodium Chlor 0.9% 1000 Ml Inj (Ns 1000 M (03/05/18 17:00) Pantoprazole (Protonix) (03/05/18 17:00) Al-Mag Hy-Si 40-40-4 Mg/Ml Liq (Mag-Al P (03/05/18 17:00) Oeohh-Qwjpwr-Jhvlzo-Pb Liq ( Liq (03/05/18 17:00) Morphine Inj (Morphine Inj) (03/05/18 18:00) Ondansetron Inj (Zofran Inj) (03/05/18 18:00) Sodium Chlor 0.9% 1000 Ml Inj (Ns 1000 M (03/05/18 19:15) Ct Pulmonary Angiogram (03/05/18 ) Morphine Inj (Morphine Inj) (03/05/18 21:00) Hydromorphone Pf Inj (Dilaudid Pf Inj) (03/05/18 21:30) Iohexol 350 Inj (Omnipaque 350 Inj) (03/05/18 22:42) Ondansetron Inj (Zofran Inj) (03/05/18 22:45) Admit Order (Ed Use Only) (03/05/18 23:53) Labs Laboratory Tests Test 03/05/18 17:05 03/05/18 18:44 White Blood Count 15.2 TH/MM3 Red Blood Count 4.51 MIL/MM3 Hemoglobin 14.1 GM/DL Hematocrit 35.1 % Mean Corpuscular Volume 77.9 FL Mean Corpuscular Hemoglobin 31.1 PG Mean Corpuscular Hemoglobin Concent 40.0 % Red Cell Distribution Width 14.9 % Platelet Count 322 TH/MM3 Mean Platelet Volume 8.7 FL CBC Comment AUTO DIFF Differential Total Cells Counted 100 Neutrophils % (Manual) 76 % Band Neutrophils % 2 % Lymphocytes % 18 % Monocytes % 4 % Neutrophils # (Manual) 11.9 TH/MM3 Differential Comment FINAL DIFF MANUAL Platelet Estimate NORMAL Platelet Morphology Comment NORMAL Prothrombin Time 9.3 SEC Prothromb Time International Ratio 0.9 RATIO Activated Partial Thromboplast Time 25.0 SEC Blood Urea Nitrogen 10 MG/DL Creatinine 0.71 MG/DL Random Glucose 195 MG/DL Total Protein 6.9 GM/DL Albumin 2.8 GM/DL Calcium Level 7.3 MG/DL Alkaline Phosphatase 75 U/L Aspartate Amino Transf (AST/SGOT) 69 U/L Alanine Aminotransferase (ALT/SGPT) LESS THAN 60 U/L Total Bilirubin 0.5 MG/DL Sodium Level 131 MEQ/L Potassium Level 4.0 MEQ/L Chloride Level 100 MEQ/L Carbon Dioxide Level 13.5 MEQ/L Anion Gap 18 MEQ/L Estimat Glomerular Filtration Rate 84 ML/MIN Protein Corrected Calcium 7.4 MG/DL Total Creatine Kinase 60 U/L Troponin I LESS THAN 0.02 NG/ML Lipase 934 U/L Urine Color COLORLESS Urine Turbidity CLEAR Urine pH 5.5 Urine Specific [place] 1.007 Urine Protein NEG mg/dL Urine Glucose (UA) 150 mg/dL Urine Ketones 10 mg/dL Urine Occult Blood MOD Urine Nitrite NEG Urine Bilirubin NEG Urine Urobilinogen LESS THAN 2.0 MG/DL Urine Leukocyte Esterase SMALL Urine RBC 6 /hpf Urine WBC 4 /hpf Urine Squamous Epithelial Cells 1 /hpf Microscopic Urinalysis Comment CULT NOT INDICATED MDM Supervised Visit with RENA: No Narrative Course The patient was initially evaluated by the previous provider and signed out to me at the beginning of my shift pending labs, CTs, and disposition. See his note for further details. Briefly this is a 62-year-old female who presents for evaluation of epigastric abdominal pain that started earlier this morning. She has history of cholecystectomy. Pain is indescribable and radiates to her back, is constant, made worse with eating and movements. Labs and CT abdomen pelvis are consistent with acute pancreatitis. Patient was given 2 doses of morphine without any relief. She did have moderate relief of pain with Dilaudid IV. She was also given IV fluids. EKG is nonischemic. She was made aware of all findings. She reports history of hypertriglyceridemia. She denies alcohol abuse. She will be admitted for further treatment and evaluation of acute pancreatitis. Case discussed with hospitalist Dr. Woodruff who will admit the patient to her service. Diagnosis Primary Impression: Acute pancreatitis Qualified Codes: K85.90 - Acute pancreatitis without necrosis or infection, unspecified Admitting Information Admitting Physician Requests: Admit Ramy Galloway MD Mar 05, 2018 23:41
[2018-03-06] VITALS (15 sets, daily range): BP systolic 124–151; BP diastolic 56–70; PULSE 100–119; RESP 16–44; TEMP 96.3–99.5; O2SAT 87–94
[2018-03-06] MEDS ORDERED: GLUCAGON 1 MG/ML VIAL OTHER PRN
[2018-03-06] MEDS ORDERED: DEXTROSE 50% IN WATER 50 ML VIAL(D50) IV PUSH PRN
[2018-03-06] MEDS ORDERED: SENNOSIDES 8.6 MG TAB PO PRN
[2018-03-06] MEDS ORDERED: BISACODYL 10 MG SUPP RECTAL PRN
[2018-03-06] MEDS ORDERED: LACTULOSE SYRUP 20 GM/30 ML CUP PO PRN
[2018-03-06] MEDS ORDERED: ALPRAZolam 0.5 MG TAB PO PRN
[2018-03-06] MEDS ORDERED: CALCIUM GLUCONATE 10% 1 GM/10 ML VIAL IV PUSH ONE
[2018-03-06] MEDS ORDERED: ACETAMINOPHEN 325 MG TAB PO PRN
[2018-03-06] MEDS ORDERED: ONDANSETRON HCL 4 MG/2 ML VIAL IVP PRN
[2018-03-06] MEDS ORDERED: ACETAMINOPHEN/HYDROcodone 325 MG/5 MG TAB PO PRN
[2018-03-06] MEDS ORDERED: MAGNESIUM HYDROXIDE SUSP 30 ML CUP PO PRN
[2018-03-06] MEDS ORDERED: CALCIUM GLUCONATE INJ 1 GM in SODIUM CHLORIDE 0.9% INJ 100 ML IV ONE (00:15)
[2018-03-06] MEDS: HYDROmorphone HCL PF 2 MG/ML VIAL IV PRN ×3 (00:46→16:38)
[2018-03-06] MEDS: SODIUM CHLOR 0.9% 1000 ML INJ 1,000 ML IV SCH ×6 (01:00→18:21)
[2018-03-06] MEDS ORDERED: METOCLOPRAMIDE HCL 10 MG/2 ML VIAL IV PUSH PRN (01:30)
[2018-03-06] MEDS: cefTRIAXone INJ 1,000 MG in SODIUM CHLORIDE 0.9% INJ 100 ML IV SCH (01:39)
--- NOTE | 2018-03-06 01:44 | HHI.HP ---
[facility]PI Service [facility] Primary [facility] Physician Too [place]dugo Admission Diagnosis Acute pancreatitis Diagnoses: (1) SIRS (systemic inflammatory response syndrome) Diagnosis: Principal (2) Pancreatitis Diagnosis: Principal (3) Chest pain Diagnosis: Principal (4) Hypocalcemia Diagnosis: Principal (5) Dehydration Diagnosis: Principal (6) DM (diabetes mellitus) Diagnosis: Principal Travel History International Travel<30 Days: No Contact w/Intl Traveler <30 Da: No Traveled to Known Affected Are: No History of Present Illness This is a 62-year-old female with a PMH of Depression, HTN, Hyperlipidemia and DM who presents the ER with complaints of chest pain and epigastric pain starting earlier this morning. States the pain is intermittent, burning, moderate-severe, 8/10, w/ radiation to back. Denies fever, chills, SOB or cough. +nausea, no vomiting. On arrival, BP 156/77, HR 123, O2 sat 97% RA, Afebrile. WBC 15.2, elevated neutrophil count. ABG 18, GFR 84, Calcium 7.3. Troponin negative. BNP 934. INR 0.9. UA with small LE, bacteriuria. CXR with linear atelectasis lower lateral lung. CTA Pulm with peribronchial thickening with moderate bibasilar parenchymal changes suggesting chronic bronchitis, no PE. CT Abdomen/Pelvis moderate severity peripancreatic edema indicating acute pancreatitis, no drainable fluid, nonobstructing right renal calculus. S/p multiple doses of Morphine and Zofran in ER w/ minimal relief, s/ p Dilaudid w/ some improvement. Review of Systems Except as stated in HPI: all other systems reviewed are Neg ROS: 14 point review of systems otherwise negative. Past Family Social History Past Medical History PMH: Depression, HTN, Hyperlipidemia and DM Past Surgical History PAST SURGICAL HISTORY: Cholecystectomy, D&C Allergies: Coded Allergies: No Known Allergies (Unverified Adverse Reaction, Unknown, 10/09/17) Family History PAST FAMILY HISTORY: Reviewed. No h/o DM or CAD Social History PAST SOCIAL HISTORY: Occasional alcohol. Negative for tobacco or drugs Physical Exam Vital Signs Vital Signs Date Time Temp Pulse Resp B/P (MAP) Pulse Ox O2 Delivery O2 Flow Rate FiO2 03/06/18 00:30 114 16 138/61 (86) 94 Nasal Cannula 3.00 03/05/18 22:01 94 Nasal Cannula 2.00 03/05/18 22:00 115 18 125/57 (79) 89 Room Air 03/05/18 17:14 (103) Room Air 03/05/18 16:53 123 18 156/77 (103) 97 Room Air 03/05/18 16:49 123 18 97 Room Air 03/05/18 16:23 97.6 124 22 136/84 (101) 99 Physical Exam PE: GENERAL: Very pleasant middle-aged white female in no acute distress. HEENT: PERRLA, EOMI. No scleral icterus or conjunctival pallor. No lid lag or facial droop. CARDIOVASCULAR: Regular rate and rhythm. No obvious murmurs to auscultation. No chest tenderness to palpation. RESPIRATORY: No obvious rhonchi or wheezing. Clear to auscultation. Breath sounds equal bilaterally. GASTROINTESTINAL: Abdomen soft, epigastric tenderness to palpation, nondistended. BS normal. MUSCULOSKELETAL: Extremities without clubbing, cyanosis, or edema. No obvious deformities. NEUROLOGICAL: Awake, alert and oriented x4. No focal neurologic deficits. Moving both upper and lower extremities spontaneously. Laboratory Laboratory Tests Test 03/05/18 17:05 03/05/18 18:44 03/06/18 00:20 White Blood Count 15.2 Red Blood Count 4.51 Hemoglobin 14.1 Hematocrit 35.1 Mean Corpuscular Volume 77.9 Mean Corpuscular Hemoglobin 31.1 Mean Corpuscular Hemoglobin Concent 40.0 Red Cell Distribution Width 14.9 Platelet Count 322 Mean Platelet Volume 8.7 CBC Comment AUTO DIFF Differential Total Cells Counted 100 Neutrophils % (Manual) 76 Band Neutrophils % 2 Lymphocytes % 18 Monocytes % 4 Neutrophils # (Manual) 11.9 Differential Comment FINAL DIFF MANUAL Platelet Estimate NORMAL Platelet Morphology Comment NORMAL Prothrombin Time 9.3 Prothromb Time International Ratio 0.9 Activated Partial Thromboplast Time 25.0 Blood Urea Nitrogen 10 Creatinine 0.71 Random Glucose 195 Total Protein 6.9 Albumin 2.8 Calcium Level 7.3 Alkaline Phosphatase 75 Aspartate Amino Transf (AST/SGOT) 69 Alanine Aminotransferase (ALT/SGPT) LESS THAN 60 Total Bilirubin 0.5 Sodium Level 131 Potassium Level 4.0 Chloride Level 100 Carbon Dioxide Level 13.5 Anion Gap 18 Estimat Glomerular Filtration Rate 84 Protein Corrected Calcium 7.4 Total Creatine Kinase 60 Troponin I LESS THAN 0.02 Lipase 934 Urine Color COLORLESS Urine Turbidity CLEAR Urine pH 5.5 Urine Specific [place] 1.007 Urine Protein NEG Urine Glucose (UA) 150 Urine Ketones 10 Urine Occult Blood MOD Urine Nitrite NEG Urine Bilirubin NEG Urine Urobilinogen LESS THAN 2.0 Urine Leukocyte Esterase SMALL Urine RBC 6 Urine WBC 4 Urine Squamous Epithelial Cells 1 Microscopic Urinalysis Comment CULT NOT INDICATED Result Diagram: 03/05/18170403/05/181704 Caprini VTE Risk Assessment Caprini VTE Risk Assessment: No/Low Risk (score <= 1) Caprini Risk Assessment Model Point Value = 1 Point Value = 2 Point Value = 3 Point Value = 5 Age 41-60 Minor surgery BMI > 25 kg/m2 Swollen legs Varicose veins or History of unexplained or recurrent spontaneous Oral contraceptives or hormone replacement Sepsis (< 1 month) Serious lung disease, including pneumonia (< 1 month) Abnormal pulmonary function Acute myocardial infarction Congestive heart failure (< 1 month) History of inflammatory bowel disease Medical patient at bed rest Age 61-74 Arthroscopic surgery Major open surgery (> 45 min) Laparoscopic surgery (> 45 min) Malignancy Confined to bed (> 72 hours) Immobilizing plaster cast Central venous access Age >= 75 History of VTE Family history of VTE Factor V Leiden Prothrombin [id number] Lupus anticoagulant Anticardiolipin antibodies Elevated serum homocysteine Heparin-induced thrombocytopenia Other congenital or acquired thrombophilia Stroke (< 1 month) Elective arthroplasty Hip, pelvis, or leg fracture Acute spinal cord injury (< 1 month) Prophylaxis Regimen Total Risk Factor Score Risk Level Prophylaxis Regimen 0-1 Low Early ambulation 2 Moderate Order ONE of the following: *Sequential Compression Device (SCD) *Heparin 5000 units SQ BID 3-4 Higher Order ONE of the following medications: *Heparin 5000 units SQ TID *Enoxaparin/Lovenox 40 mg SQ daily (WT < 150 kg, CrCl > 30 mL/min) *Enoxaparin/Lovenox 30 mg SQ daily (WT < 150 kg, CrCl > 10-29 mL/min) *Enoxaparin/Lovenox 30 mg SQ BID (WT < 150 kg, CrCl > 30 mL/min) AND/OR *Sequential Compression Device (SCD) 5 or more Highest Order ONE of the following medications: *Heparin 5000 units SQ TID (Preferred with Epidurals) *Enoxaparin/Lovenox 40 mg SQ daily (WT < 150 kg, CrCl > 30 mL/min) *Enoxaparin/Lovenox 30 mg SQ daily (WT < 150 kg, CrCl > 10-29 mL/min) *Enoxaparin/Lovenox 30 mg SQ BID (WT < 150 kg, CrCl > 30 mL/min) AND *Sequential Compression Device (SCD) Assessment and Plan Problem List: (1) SIRS (systemic inflammatory response syndrome) ICD Code: R65.10 - Systemic inflammatory response syndrome (SIRS) of non- infectious origin without acute organ dysfunction (2) Pancreatitis ICD Code: K85.90 - Acute pancreatitis without necrosis or infection, unspecified (3) Chest pain ICD Code: R07.9 - Chest pain, unspecified (4) Hypocalcemia ICD Code: E83.51 - Hypocalcemia (5) Dehydration ICD Code: E86.0 - Dehydration (6) DM (diabetes mellitus) ICD Code: E11.9 - Type 2 diabetes mellitus without complications Assessment and Plan A/P: 1. SIRS: HR 120's, WBC 15, Source-UTI, IVF for hydration, IV Abx, monitor. 2. Pancreatitis: acute onset epigastric pain w/ nausea, Lipase 934. CT Abd/ Pelvis w/ moderate severity peripancreatic edema indicating acute appendicitis, images reviewed by me. NPO, IVF, Protonix IV, repeat Lipase in am. Check Hgb A1c and Lipid Profile. Persistent pain and nausea despite multiple doses of Morphine and Zofran, will switch to Dilaudid, add Reglan, Tigan if needed. 3. Chest Pain: likely secondary to above, initial trop negative, EKG w/ no acute changes. Place on telemetry, check serial cardiac enzymes to eval for underlying ischemia. ASA, resume home Atorvastatin and Metoprolol. 4. Hypocalcemia: Ca 7.3, corrected 7.4, will replace and recheck in am. 5. Dehydration: AG 18, GFR 84, IVF for hydration, repeat labs in am. 6. DM: Sliding scale w/ Accu-Cheks, hold Glipizide for now as NPO. Check Hgb A1c 7. DVT Prophylaxis: SCD/Teds. 8. Social work for d/c planning as needed. 9. Case discussed w/ ER physician at length, labs/records/imaging reviewed by md Physician Certification 2 Midnight Certification Type: Admission for Inpatient Services Order for Inpatient Services The services are ordered in accordance with Medicare regulations or non- Medicare payer requirements, as applicable. In the case of services not specified as inpatient-only, they are appropriately provided as inpatient services in accordance with the 2-midnight benchmark. Estimated LOS (days): 2 days is the estimated time the patient will need to remain in the hospital, assuming treatment plan goals are met and no additional complications. Post-Hospital Plan: Not yet determined Shira Miramontes MD Mar 06, 2018 01:44
[2018-03-06] MEDS: INSULIN ASPART SUPPLEMENTAL SCALE SQ SCH ×4 (08:00→21:00)
[2018-03-06] MEDS: SODIUM CHLORIDE 0.9% FLUSH 10 ML FLUSH IV FLUSH SCH ×2 (09:00→22:30)
[2018-03-06] MEDS: PANTOPRAZOLE SOD 40 MG DELAYED RELEASE TAB PO SCH ×2 (09:54→22:31)
[2018-03-06] MEDS: METOPROLOL SUCCINATE 25 MG EXTENDED RELEASE TAB PO SCH (09:54)
[2018-03-06] MEDS: ASPIRIN EC 81 MG TABEC PO SCH (09:54)
[2018-03-06] MEDS: DOCUSATE SODIUM 50 MG/SENNA 8.6 MG TAB PO SCH ×2 (09:54→21:00)
[2018-03-06] MEDS: FENOFIBRATE 145 MG TAB PO SCH (09:54)
[2018-03-06 10:50] LABS: AUTOMATED NEUTROPHIL # 9.6 TH/MM3 (1.8-7.7); BASOPHIL % 0.4 % (0.0-2.0); EOSINOPHIL % 0.3 % (0.0-4.0); LYMPHOCYTE # 1.1 TH/MM3 (1.0-4.8); MEAN CELL VOLUME 77.7 FL (80.0-100.0); MEAN CORPUSCULAR HEMOGLOBIN 25.9 PG (27.0-34.0); MEAN CORPUSCULAR HGB CONC 33.3 % (32.0-36.0); MONO % 6.3 % (0.0-8.0); MONOCYTE # 0.7 TH/MM3 (0-0.9); RED BLOOD COUNT 4.25 MIL/MM3 (4.00-5.30); RED CELL DISTRIBUTION WIDTH 15.3 % (11.6-17.2)
[2018-03-06 10:58] LABS: PLATELET COUNT 285 TH/MM3 (150-450); WHITE BLOOD COUNT 12.3 TH/MM3 (4.0-11.0)
[2018-03-06 11:17] LABS: ALBUMIN 2.3 GM/DL (3.4-5.0); ALKALINE PHOSPHATASE 60 U/L (45-117); ALT (GPT) 61 U/L (10-53); AST (GOT) 87 U/L (15-37); BICARBONATE 12.8 MEQ/L (21.0-32.0); BLOOD UREA NITROGEN 4 MG/DL (7-18); CALCIUM 5.8 MG/DL (8.5-10.1); CHLORIDE 99 MEQ/L (98-107); CREATININE 0.64 MG/DL (0.50-1.00); GLOMERULAR FILTRATION RATE 95 ML/MIN (>89); GLUCOSE,RANDOM 268 MG/DL (74-106); SODIUM (NA) 130 MEQ/L (136-145); TOTAL BILIRUBIN ADULT 0.6 MG/DL (0.2-1.0); TOTAL PROTEIN 6.4 GM/DL (6.4-8.2); TROPONIN I LESS THAN 0.02 NG/ML (0.02-0.05)
[2018-03-06 11:23] LABS: CALCIUM-PROTEIN CORRECTED 6.1 MG/DL (8.5-10.1)
[2018-03-06 11:38] LABS: TRIGLYCERIDES 6339 MG/DL (42-150)
[2018-03-06 11:39] LABS: CHOLESTEROL 359 MG/DL (120-200); CHOLESTEROL/ HDL RATIO 14.02 RATIO; HDL CHOLESTEROL 25.6 MG/DL (40.0-60.0)
[2018-03-06] MEDS ORDERED: CALCIUM GLUCONATE INJ 2 GM in DEXTROSE 5% IN WATER 100ML INJ 100 ML IV ONE ×2 (12:30)
--- NOTE | 2018-03-06 12:42 | HHI.PR ---
Subjective Remarks Patient sitting on the edge of the bed family at the bedside and daughter and grandson Still having abdominal pain she stated it 9-10 out of 10, nauseous Objective Vitals Vital Signs Date Time Temp Pulse Resp B/P (MAP) Pulse Ox O2 Delivery O2 Flow Rate FiO2 03/06/18 12:00 97.9 105 22 151/70 (97) 90 03/06/18 08:00 98.6 100 22 136/56 (82) 92 03/06/18 06:35 Nasal Cannula 3.00 03/06/18 06:32 116 03/06/18 06:06 99.5 116 18 146/64 (91) 92 03/06/18 04:00 116 03/06/18 04:00 97 Nasal Cannula 3.00 03/06/18 04:00 96.4 119 20 139/67 (91) 93 03/06/18 03:58 93 Nasal Cannula 2.00 03/06/18 01:50 96.3 113 20 149/69 (95) 93 03/06/18 00:30 114 16 138/61 (86) 94 Nasal Cannula 3.00 03/05/18 22:01 94 Nasal Cannula 2.00 03/05/18 22:00 115 18 125/57 (79) 89 Room Air 03/05/18 17:14 (103) Room Air 03/05/18 16:53 123 18 156/77 (103) 97 Room Air 03/05/18 16:49 123 18 97 Room Air 03/05/18 16:23 97.6 124 22 136/84 (101) 99 I/O 03/05/18 03/05/18 03/05/18 03/06/18 03/06/18 03/06/18 07:00 15:00 23:00 07:00 15:00 23:00 Intake Total 1000 ml 1251 ml Output Total 1 ml Balance 1000 ml 1250 ml Intake Oral 50 ml IV Total 1000 ml 1201 ml Output Emesis 1 ml # Voids 0 # Bowel Movements 0 Result Diagram: 03/06/1891803/06/18918 Objective Remarks GENERAL: This is a well-nourished, well-developed patient, in no apparent distress. SKIN: No rashes, warm and dry HEAD: Atraumatic. Normocephalic. EYES: Pupils equal round and reactive. Extraocular motions intact. No scleral icterus. ENT: Nose without bleeding, or drainage, Airway patent. NECK: Trachea midline. Supple CARDIOVASCULAR: Regular rate and rhythm without murmurs, gallops, or rubs. RESPIRATORY: Fair air entry bilaterally. No wheezes, rales, or rhonchi. GASTROINTESTINAL: Abdomen soft, generalized tenderness more on the epigastric right and left upper quadrant area, no rebound or guarding, nondistended. Positive bowel sounds MUSCULOSKELETAL: Extremities without clubbing, cyanosis, or edema. Pedal pulses appreciated NEUROLOGICAL: Awake and alert. Moves all extremity. Normal speech.no focal neurological deficit A/P Problem List: (1) SIRS (systemic inflammatory response syndrome) ICD Code: R65.10 - Systemic inflammatory response syndrome (SIRS) of non- infectious origin without acute organ dysfunction (2) Pancreatitis ICD Code: K85.90 - Acute pancreatitis without necrosis or infection, unspecified (3) Chest pain ICD Code: R07.9 - Chest pain, unspecified (4) Hypocalcemia ICD Code: E83.51 - Hypocalcemia (5) Dehydration ICD Code: E86.0 - Dehydration (6) DM (diabetes mellitus) ICD Code: E11.9 - Type 2 diabetes mellitus without complications Assessment and Plan -SIRS -Severe acute pancreatitis with lipase trending up -Severe hypertriglyceridemia and hypercholesterolemia -Anion gap metabolic acidosis -Severe hypocalcemia and dehydration -Diabetes mellitus Plan: CT abdomen personally reviewed by me Repeated labs today showing severe hypocalcemia corrected calcium 6.5>> 2 g calcium gluconate IV with calcium carbonate p.o. Check magnesium level and replete Monitor CMP Consult GI Accu-Chek with insulin sliding scale hold glipizide keep patient n.p.o. Generous IV fluid to 25 cc Monitor anion gap which is 18 Transfer patient to [facility] for close monitoring Surinder Conner MD Mar 06, 2018 12:42
--- NOTE | 2018-03-06 13:38 | PD.CONS ---
HPI History of Present Illness This is a 62 year old PMH of Depression, HTN, Hyperlipidemia and DM who presents the ER with severe epigastric pain starting yesterday with nausea and vomiting. This is severe with radiation to the back. Denies fever, chills, change in urine or stools. Pt is s/p Cholecystectomy. CT Abdomen/Pelvis moderate severity peripancreatic edema indicating acute pancreatitis, no drainable fluid, nonobstructing right renal calculus. labs revealed high lipase , worsening today 934 ---> 1556, elevated LFTs, high triglycerides of 6339, cholesterol 359. Pt is on Atorvastatin and Fenofibrate at home. States she has hx of high triglycerides but never this high. Pt denies previous hx of pancreatitis, no family hx of this. Pt not a heavy or daily drinker, no new meds , doesn't take NSAIDs on regular basis (Corie Arriaza) PFSH Past Medical History PMH: Depression, HTN, Hyperlipidemia and DM Past Surgical History PAST SURGICAL HISTORY: Cholecystectomy, D&C (Corie Arriaza) Coded Allergies: No Known Allergies (Unverified Adverse Reaction, Unknown, 10/09/17) Medications Current Medications Medications (Trade) Dose Ordered Sig/Katalina Route Start Time Stop Time Status Last Admin Sodium Chloride 1,000 ml @ 225 mls/hr Q4H27M IV 03/05/18 17:00 03/06/18 09:00 (D50w (Vial) Inj) 50 ml UNSCH PRN IV PUSH 03/06/18 00:00 (Glucagon Inj) 1 mg UNSCH PRN OTHER 03/06/18 00:00 (NovoLOG SUPPLEMENTAL SCALE) 1 ACHS SLIDING SCALE SQ 03/06/18 08:00 03/06/18 12:00 (NS Flush) 2 ml UNSCH PRN IV FLUSH 03/06/18 00:00 (NS Flush) 2 ml BID IV FLUSH 03/06/18 09:00 03/06/18 09:00 (Zofran Inj) 4 mg Q6H PRN IVP 03/06/18 00:00 (Tylenol) 650 mg Q6H PRN PO 03/06/18 00:00 (Bernard 5-325 Mg) 1 tab Q4H PRN PO 03/06/18 00:00 (Dilaudid Pf Inj) 1 mg Q3H PRN IV 03/06/18 00:15 03/06/18 06:55 (Tayler-Colace) 1 tab BID PO 03/06/18 09:00 03/06/18 09:54 (Milk Of Magnesia Liq) 30 ml Q12H PRN PO 03/06/18 00:00 (Senokot) 17.2 mg Q12H PRN PO 03/06/18 00:00 (Dulcolax Supp) 10 mg DAILY PRN RECTAL 03/06/18 00:00 (Lactulose Liq) 30 ml DAILY PRN PO 03/06/18 00:00 (Xanax) 0.5 mg Q4H PRN PO 03/06/18 00:00 03/06/18 02:21 (Lipitor) 20 mg HS PO 03/06/18 21:00 (Toprol Xl) 25 mg DAILY PO 03/06/18 09:00 03/06/18 09:54 (Tricor) 145 mg DAILY PO 03/06/18 09:00 03/06/18 09:54 (Desyrel) 100 mg HS PO 03/06/18 21:00 (Protonix) 40 mg Q12HR PO 03/06/18 09:00 03/06/18 09:54 Ceftriaxone Sodium 1000 mg/ Sodium Chloride 100 ml @ 200 mls/hr Q24H IV 03/06/18 00:00 03/06/18 01:39 (Neurontin) 100 mg HS PO 03/06/18 21:00 (Reglan Inj) 10 mg Q8H PRN IV PUSH 03/06/18 01:30 03/06/18 02:21 (Ecotrin Ec) 81 mg DAILY PO 03/06/18 09:00 03/06/18 09:54 Calcium Gluconate 2 gm/Dextrose 120 ml @ 120 mls/hr ONCE ONCE IV 03/06/18 12:30 03/06/18 13:29 03/06/18 12:30 (Oscal) 500 mg Q12HR PO 03/06/18 21:00 03/10/18 20:59 Family History PAST FAMILY HISTORY: No family hx of pancreatitis Social History PAST SOCIAL HISTORY: Occasional alcohol. 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) Review of Systems Constitutional: DENIES: Weight loss, Change in appetite Endocrine: DENIES: Polyuria Eyes: DENIES: Double Vision Ears, nose, mouth, throat: DENIES: Hoarseness Respiratory: DENIES: Shortness of breath Cardiovascular: DENIES: Lower Extremity Edema Gastrointestinal: COMPLAINS OF: Abdominal pain, Nausea, Vomiting, DENIES: Black stools, Bloody stools, Constipation, Diarrhea, Difficulty Swallowing, Anorexia, Odynophagia, Swelling of Abdomen, Heartburn, Hematemesis Genitourinary: DENIES: Hematuria Musculoskeletal: COMPLAINS OF: Back pain Integumentary: DENIES: Jaundice Immunologic/allergic: DENIES: Eczema Neurologic: DENIES: Abnormal gait Psychiatric: DENIES: Anxiety (Corie Arriaza) GI Exam Vitals I&O Vital Signs Date Time Temp Pulse Resp B/P (MAP) Pulse Ox O2 Delivery O2 Flow Rate FiO2 03/06/18 12:00 97.9 105 22 151/70 (97) 90 03/06/18 08:00 98.6 100 22 136/56 (82) 92 03/06/18 06:35 Nasal Cannula 3.00 03/06/18 06:32 116 03/06/18 06:06 99.5 116 18 146/64 (91) 92 03/06/18 04:00 116 03/06/18 04:00 97 Nasal Cannula 3.00 03/06/18 04:00 96.4 119 20 139/67 (91) 93 03/06/18 03:58 93 Nasal Cannula 2.00 03/06/18 01:50 96.3 113 20 149/69 (95) 93 03/06/18 00:30 114 16 138/61 (86) 94 Nasal Cannula 3.00 03/05/18 22:01 94 Nasal Cannula 2.00 03/05/18 22:00 115 18 125/57 (79) 89 Room Air 03/05/18 17:14 (103) Room Air 03/05/18 16:53 123 18 156/77 (103) 97 Room Air 03/05/18 16:49 123 18 97 Room Air 03/05/18 16:23 97.6 124 22 136/84 (101) 99 I/O 03/05/18 03/05/18 03/05/18 03/06/18 03/06/18 03/06/18 07:00 15:00 23:00 07:00 15:00 23:00 Intake Total 1000 ml 1251 ml Output Total 1 ml Balance 1000 ml 1250 ml Intake Oral 50 ml IV Total 1000 ml 1201 ml Output Emesis 1 ml # Voids 0 # Bowel Movements 0 Imaging Last Impressions Chest X-Ray 03/05/18 1700 Signed Impressions: Service Date/Time: Monday, March 05, 2018 17:06 - CONCLUSION: Linear atelectasis or scar lower lateral left lung. The remainder of the lungs are clear. Brian Salinas MD Abdomen/Pelvis CT 03/05/18 1700 Signed Impressions: Service Date/Time: Monday, March 05, 2018 22:28 - CONCLUSION: 1. Moderate severity peripancreatic edema indicating acute pancreatitis in the proper clinical setting. No organized drainable fluid collections identified. 2. Nonobstructing right renal calculus unchanged. 3. Colonic diverticulosis with no evidence of acute diverticulitis. 4. Fibroid uterus. Juan White MD CT Angiography 03/05/18 0000 Signed Impressions: Service Date/Time: Monday, March 05, 2018 22:28 - CONCLUSION: Peribronchial thickening with moderate bibasilar parenchymal changes suggesting chronic bronchitis. Negative for central pulmonary emboli. Valentin Uriarte MD FACR Laboratory Test 03/05/18 17:05 03/05/18 18:44 03/06/18 00:20 03/06/18 09:19 White Blood Count 15.2 TH/MM3 12.3 TH/MM3 Red Blood Count 4.51 MIL/MM3 4.25 MIL/MM3 Hemoglobin 14.1 GM/DL 11.0 GM/DL Hematocrit 35.1 % 33.0 % Mean Corpuscular Volume 77.9 FL 77.7 FL Mean Corpuscular Hemoglobin 31.1 PG 25.9 PG Mean Corpuscular Hemoglobin Concent 40.0 % 33.3 % Red Cell Distribution Width 14.9 % 15.3 % Platelet Count 322 TH/MM3 285 TH/MM3 Mean Platelet Volume 8.7 FL 9.0 FL CBC Comment AUTO DIFF DIFF FINAL Differential Total Cells Counted 100 Neutrophils % (Manual) 76 % Band Neutrophils % 2 % Lymphocytes % 18 % Monocytes % 4 % Neutrophils # (Manual) 11.9 TH/MM3 Differential Comment FINAL DIFF MANUAL Platelet Estimate NORMAL Platelet Morphology Comment NORMAL Prothrombin Time 9.3 SEC Prothromb Time International Ratio 0.9 RATIO Activated Partial Thromboplast Time 25.0 SEC Blood Urea Nitrogen 10 MG/DL 4 MG/DL Creatinine 0.71 MG/DL 0.64 MG/DL Random Glucose 195 MG/DL 268 MG/DL Total Protein 6.9 GM/DL 6.4 GM/DL Albumin 2.8 GM/DL 2.3 GM/DL Calcium Level 7.3 MG/DL 5.8 MG/DL Alkaline Phosphatase 75 U/L 60 U/L Aspartate Amino Transf (AST/SGOT) 69 U/L 87 U/L Alanine Aminotransferase (ALT/SGPT) LESS THAN 60 U/L 61 U/L Total Bilirubin 0.5 MG/DL 0.6 MG/DL Sodium Level 131 MEQ/L 130 MEQ/L Potassium Level 4.0 MEQ/L 3.4 MEQ/L Chloride Level 100 MEQ/L 99 MEQ/L Carbon Dioxide Level 13.5 MEQ/L 12.8 MEQ/L Anion Gap 18 MEQ/L 18 MEQ/L Estimat Glomerular Filtration Rate 84 ML/MIN 95 ML/MIN Protein Corrected Calcium 7.4 MG/DL 6.1 MG/DL Total Creatine Kinase 60 U/L Troponin I LESS THAN 0.02 NG/ML LESS THAN 0.02 NG/ML LESS THAN 0.02 NG/ML Lipase 934 U/L 1556 U/L Urine Color COLORLESS Urine Turbidity CLEAR Urine pH 5.5 Urine Specific [place] 1.007 Urine Protein NEG mg/dL Urine Glucose (UA) 150 mg/dL Urine Ketones 10 mg/dL Urine Occult Blood MOD Urine Nitrite NEG Urine Bilirubin NEG Urine Urobilinogen LESS THAN 2.0 MG/DL Urine Leukocyte Esterase SMALL Urine RBC 6 /hpf Urine WBC 4 /hpf Urine Squamous Epithelial Cells 1 /hpf Microscopic Urinalysis Comment CULT NOT INDICATED Neutrophils (%) (Auto) 83.0 % Lymphocytes (%) (Auto) 10.0 % Monocytes (%) (Auto) 6.3 % Eosinophils (%) (Auto) 0.3 % Basophils (%) (Auto) 0.4 % Neutrophils # (Auto) 9.6 TH/MM3 Lymphocytes # (Auto) 1.1 TH/MM3 Monocytes # (Auto) 0.7 TH/MM3 Eosinophils # (Auto) 0.0 TH/MM3 Basophils # (Auto) 0.0 TH/MM3 Hematology Comments Triglycerides Level 6339 MG/DL Cholesterol Level 359 MG/DL LDL Cholesterol MG/DL HDL Cholesterol 25.6 MG/DL Cholesterol/HDL Ratio 14.02 RATIO Physical Examination HEENT: normocephalic; atraumatic; no jaundice. CHEST: Chest is clear to auscultation and percussion. CARDIAC: Regular rate and rhythm with no murmur gallop or rubs. ABDOMEN: Soft, nondistended, severe epigastric tenderness to palpation; no hepatosplenomegaly; bowel sounds are present in all four quadrants. EXTREMITIES: No clubbing, cyanosis, or edema. SKIN: Normal; no rash; no jaundice. SILK SCREEN OPERATOR: No focal deficits; alert and oriented times three. (Corie Arriaza) Assessment and Plan Plan - Acute pancreatitis (first episode)- likely Triglycerides induced. CT Abdomen /Pelvis moderate severity peripancreatic edema indicating acute pancreatitis, no drainable fluid, nonobstructing right renal calculus. Pt is s/p Cholecystectomy. labs revealed high lipase, worsening today 934 ---> 1556, elevated LFTs, high triglycerides of 6339, cholesterol 359. Pt is on Atorvastatin and Fenofibrate at home. States she has hx of high triglycerides but never this high. Pt denies previous hx of pancreatitis, no family hx of this. Pt not a heavy or daily drinker, no new meds, doesn't take NSAIDs on regular basis - Leukocytosis- secondary to above, afebrile on Rocephin - High triglycerides of 6339, cholesterol 359. Per attending - DM per attending Plan: - NPO - Aggressive hydration - Pain and antiemetic meds - Agree with transfer to the unit for close monitoring - Will need to bring Triglycerides levels down - Monitor labs - Supportive care - Patient seen and examined by Dr. Chicas and myself and this note is written on his behalf. (Corie Arriaza) Physician Comments Seen and examined with CERTIFIED MEDICAL TECHNICIAN ASSISTANT, acute pancreatitis due to hypertriglyceridemia. Aggressive rehydration, clear liquids. Hematology consulted for possible plasmapheresis if clinically worsens. Discussed with pt. and family. Thank you (Ailyn Jaramillo MD) Corie Arriaza Mar 06, 2018 13:38 Ailyn Jaramillo MD Mar 06, 2018 17:16
[2018-03-06 13:44] LABS: HEMOGLOBIN A1C 8.5 % (4.3-6.0)
--- NOTE | 2018-03-06 14:42 | EKG ---
Date Performed: 03/05/2018 Time Performed: 16:37:39 PTAGE: 62 years EKG: SINUS TACHYCARDIA ABNORMAL RHYTHM ECG PREVIOUS TRACING : 10/10/2012 03.05 Since previous tracing, heart rate is faster; otherwise, no significant change. DOCTOR: Kevin Wagner Interpretating Date/Time 03/06/2018 14:41:05
[2018-03-06] MEDS: MAGNESIUM SULFAT 1 GM PREMIX 100 ML x2 bags IV SCH ×2 (15:00→16:00)
[2018-03-06] MEDS ORDERED: CHLORHEXIDINE GLUCONATE 2 % 1 PACK (2 CLOTHS)(extra cloths) TOPICAL PRN (20:15)
[2018-03-06] MEDS ORDERED: HEPARIN SODIUM - IV 10,000 UNITS/10 ML VIAL ONE (20:20)
[2018-03-06] MEDS ORDERED: SODIUM BICARBONATE 8.4% INJ 50 ML ONE (20:41)
--- NOTE | 2018-03-06 20:54 | PD.RAD ---
Post Procedure Progress Note Pre Procedure Diagnosis: (1) SIRS (systemic inflammatory response syndrome) Post Procedure Diagnosis: (1) SIRS (systemic inflammatory response syndrome) Procedure Date: Mar 06, 2018 Supervising Radiologist: Liam Uriarte Estimated blood loss: 2cc Anesthesia: Local, Conscious Sedation Plan of Activity Patient to Unit: Critical Care Patient Condition: Fair Additional Comments: Right IJ vascath placed without difficulty Catheter in good position OK for use See PACS Report for procedural detail/treatment Liam Uriarte MD Mar 06, 2018 20:54
[2018-03-06] MEDS ORDERED: GABAPENTIN 300 MG CAP PO SCH (21:00)
[2018-03-06] MEDS ORDERED: SODIUM CHLORIDE 0.9% FLUSH 10 ML FLUSH IV FLUSH PRN ×2 (21:00)
[2018-03-06] MEDS ORDERED: HEPARIN SODIUM - IV 2,000 UNITS/2 ML VIAL IV FLUSH PRN (21:00)
--- NOTE | 2018-03-06 21:27 | MB ---
cc: Melva Campos MD, Ruby Anne E MD Zulfiqar,Ailyn BARTHOLOMEW DATE: 03/06/2018 REFERRING PHYSICIAN: Dr. Ailyn Jaramillo CHIEF COMPLAINT: Dr. Jaramillo requests a consultation for Mrs. Allen with acute pancreatitis associated with hypertriglyceridemia, needing plasmapheresis. HISTORY OF PRESENT ILLNESS: Mrs. Allen is a 62-year-old woman with a history of depression, cardiovascular problems, hypercholesterolemia, diabetes, diverticulitis, gastroesophageal reflux, hypertension, nephrolithiasis. She presented with chest pain, epigastric abdominal pain. She is diagnosed with acute pancreatitis. CT abdomen shows moderate severity and peripancreatic edema indicating acute pancreatitis. There is no organized fluid collection. She is noted to have a microcytic anemia, elevated white cell count of 12.3, CO2 is decreased at 13.5. AST and ALT are elevated. Triglycerides are 6339, total cholesterol 359, lipase is 1500. Mrs. Allen is clinically ill. She looks tired with a heart rate in the 110s, saturation 90% to 94% on 3 liter nasal cannula. She is anxious. She has significant symptoms associated with the pancreatitis and is assessed to be severe enough to require ICU monitoring. She is pending transfer to the ICU coordinated by Dr. Jaramillo and primary team. Because of the severe hypertriglyceridemia and acute pancreatitis, hematology/oncology is consulted for the plasmapheresis. REVIEW OF SYSTEMS: The patient denies knowledge of severe hypertriglyceridemia. She is aware of her hypercholesterolemia. She denies any significant family history of severe hypertriglyceridemia. See above. She has nausea and anxiety. She denies any fevers. She denies any bleeding. No headache, no vision changes. The rest of review of system is negative. PAST MEDICAL HISTORY: Depression, hypertension, hyperlipidemia, diabetes, anxiety. PAST SURGICAL HISTORY: Cholecystectomy, D and C procedure. ALLERGIES: NO KNOWN DRUG ALLERGIES FAMILY HISTORY: No significant family history of hypertriglyceridemia. SOCIAL HISTORY: She is and lives with her . She drinks alcohol occasionally. She denies any tobacco or illicit drug use. CURRENT MEDICATIONS: 1. Lipitor. 2. Trazodone. 3. Neurontin. 4. Os-Jose G. 5. Tayler-Colace. 6. Toprol. 7. Tricor. 8. Protonix. 9. Aspirin. 10. Reglan. 11. Dilaudid p.r.n. 12. Zofran p.r.n. PHYSICAL EXAMINATION: VITAL SIGNS: Temperature 98.6, heart rate 110, respiratory rate 22, blood pressure 124/70, saturation 94% on 3 liter nasal cannula. GENERAL: Mrs. Allen is a well-developed woman who looks ill and anxious. She is mildly tachycardic. HEENT: Pupils are round, reactive to light and accommodation. Sclerae are nonicteric. Oropharynx is dry. NECK: Supple. LUNGS: Clear. CARDIOVASCULAR: Reveals tachycardia. ABDOMEN: Distended and tenderness in the upper abdominal area. LOWER EXTREMITIES: With no edema. NEUROLOGIC: Nonfocal. LABORATORY DATA: As described above. Calcium is 5.8, sodium of 130, AST 87, ALT 61, albumin of 3.3, triglycerides 6339. ASSESSMENT AND PLAN: Mrs. Allen is a 62-year-old woman with multiple medical problems. She presents with abdominal epigastric discomfort, clinical signs of pancreatitis. Imaging study consistent with pancreatitis associated with hypertriglyceridemia. I discussed with Mrs. Allen and her present at the consultation the rationale for plasmapheresis for hypertriglyceridemia-induced acute pancreatitis. She is acutely ill with symptoms of inflammatory response. She is tachycardic, tachypneic with elevated white blood cell count. Her CO2 is decreased. Her temperature so far is normal. These are indications for pheresis. We will pherese with 1 plasma volume using albumin. Her triglycerides will be checked daily. Pheresis will ensue if triglycerides are greater than 500. I concur with supportive treatment and closer monitoring. The case was discussed with Dr. Jaramillo. Catheter placement will be coordinated through interventional radiology. The patient declined a bedside procedure. She is too anxious to tolerate that. She and her 's questions were answered to their satisfaction. MD AMARIS Dunn//aravind , 06:14 PM , 08:47 PM
[2018-03-06] MEDS ORDERED: diphenhydrAMINE HCL 50 MG/ML VIAL IV PUSH PRN (21:30)
[2018-03-06] MEDS ORDERED: HEPARIN SODIUM - 1000 UNITS/ML 10 ML VIAL IV FLUSH PRN (21:30)
[2018-03-06] MEDS ORDERED: CALCIUM CARBONATE 1.25 GM (CA 500 MG) TAB PO PRN (21:45)
[2018-03-06] MEDS ORDERED: CALCIUM GLUCONATE INJ 1 GM in SODIUM CHLORIDE 0.9% INJ 50 ML IV SCH (22:00)
[2018-03-06] MEDS: ALBUMIN 5% INJ 3,500 ML IV SCH (22:00)
[2018-03-06] MEDS: CALCIUM CARBONATE 1.25 GM (CA 500 MG) TAB PO SCH (22:31)
[2018-03-06] MEDS: GABAPENTIN 100 MG CAP PO SCH (22:31)
[2018-03-06] MEDS: ATORVASTATIN 20 MG TAB PO SCH (22:31)
[2018-03-06] MEDS: traZODone HCL 100 MG TAB PO SCH (22:31)
[2018-03-07] VITALS (14 sets, daily range): BP systolic 121–145; BP diastolic 58–65; PULSE 96–110; RESP 26–34; TEMP 97.7–99.3; O2SAT 91–96
[2018-03-07] MEDS: methylPREDNISolone SOD SUCC 125 MG/2 ML VIAL IV PUSH SCH ×2 (01:41→22:00)
[2018-03-07] MEDS: SODIUM CHLOR 0.9% IV SCH ×2 (01:41→22:00)
[2018-03-07] MEDS: CALCIUM GLUCONATE IV SCH ×2 (01:41→22:00)
[2018-03-07] MEDS: FAMOTIDINE 20 MG/2 ML VIAL IV PUSH SCH ×2 (01:42→22:00)
[2018-03-07] MEDS: ANTICOAGULANT CITRATE DEXTROSE SOLN-A 1L OTHER SCH ×2 (01:44→22:00)
[2018-03-07] MEDS: cefTRIAXone INJ 1,000 MG in SODIUM CHLORIDE 0.9% INJ 100 ML IV SCH (02:26)
[2018-03-07] MEDS: SODIUM CHLOR 0.9% 1000 ML INJ 1,000 ML IV SCH ×6 (02:26→21:51)
[2018-03-07] MEDS: CHLORHEXIDINE GLUCONATE 2 % 1 PACK (2 CLOTHS)(taper/protocol) TOPICAL SCH (04:00)
[2018-03-07] MEDS: METOPROLOL SUCCINATE 25 MG EXTENDED RELEASE TAB PO SCH (08:37)
[2018-03-07] MEDS: INSULIN ASPART SUPPLEMENTAL SCALE SQ SCH ×4 (08:37→21:00)
[2018-03-07] MEDS: PANTOPRAZOLE SOD 40 MG DELAYED RELEASE TAB PO SCH ×2 (08:37→20:23)
[2018-03-07] MEDS: SODIUM CHLORIDE 0.9% FLUSH 10 ML FLUSH IV FLUSH SCH ×2 (08:37→21:00)
[2018-03-07] MEDS: CALCIUM CARBONATE 1.25 GM (CA 500 MG) TAB PO SCH ×2 (08:38→20:24)
[2018-03-07] MEDS: FENOFIBRATE 145 MG TAB PO SCH (08:38)
[2018-03-07] MEDS: ASPIRIN EC 81 MG TABEC PO SCH (08:38)
[2018-03-07] MEDS: DOCUSATE SODIUM 50 MG/SENNA 8.6 MG TAB PO SCH ×2 (08:39→20:25)
[2018-03-07 11:12] LABS: ALBUMIN 3.5 GM/DL (3.4-5.0); BICARBONATE 17.9 MEQ/L (21.0-32.0); CALCIUM 6.4 MG/DL (8.5-10.1); CREATININE 0.53 MG/DL (0.50-1.00); MAGNESIUM 2.3 MG/DL (1.5-2.5)
[2018-03-07 11:21] LABS: TOTAL BILIRUBIN ADULT 0.7 MG/DL (0.2-1.0)
--- NOTE | 2018-03-07 11:28 | PD.ONC.PN ---
Subjective Subjective Remarks Afebrile Abdominal pain improved Patient requesting to have her clear liquids Tired of being in the hospital Objective Data Date Time Temp Pulse Resp B/P (MAP) Pulse Ox O2 Delivery O2 Flow Rate FiO2 03/07/18 06:00 110 03/07/18 04:00 98.2 110 33 137/63 (87) 92 03/07/18 04:00 110 03/07/18 02:00 105 03/07/18 00:00 106 03/07/18 00:00 98.0 106 34 138/63 (88) 93 03/06/18 23:30 109 35 91 03/06/18 23:00 111 35 140/65 (90) 91 03/06/18 23:00 94 Partial Non-Rebreather 12.00 03/06/18 22:30 114 32 92 03/06/18 22:00 117 44 150/66 (94) 94 03/06/18 22:00 117 03/06/18 21:30 115 34 93 03/06/18 21:00 94 Partial Non-Rebreather 10.00 03/06/18 21:00 113 40 141/69 (93) 94 03/06/18 20:00 87 Simple Mask 8.00 03/06/18 20:00 118 03/06/18 20:00 98.4 118 20 142/64 (90) 87 03/06/18 16:00 98.6 110 22 124/70 (88) 94 03/06/18 16:00 Nasal Cannula 3.00 03/06/18 16:00 119 03/06/18 12:00 97.9 105 22 151/70 (97) 90 03/06/18 12:00 110 03/07/18 03/07/18 03/07/18 07:00 15:00 23:00 Intake Total 2100 ml Output Total 2250 ml Balance -150 ml Result Diagram: 03/06/18 0919 03/07/18 1015 Laboratory Results Laboratory Tests Test 03/06/18 20:00 03/07/18 10:15 03/07/18 10:37 Nasal Screen MRSA (PCR) MRSA NOT DETECTED Blood Urea Nitrogen 6 MG/DL Creatinine 0.53 MG/DL Random Glucose 240 MG/DL Albumin 3.5 GM/DL Calcium Level 6.4 MG/DL Phosphorus Level 1.0 MG/DL Magnesium Level 2.3 MG/DL Alkaline Phosphatase 33 U/L Total Bilirubin 0.7 MG/DL Sodium Level 143 MEQ/L Potassium Level 3.6 MEQ/L Chloride Level 112 MEQ/L Carbon Dioxide Level 17.9 MEQ/L Anion Gap 13 MEQ/L Estimat Glomerular Filtration Rate 118 ML/MIN Triglycerides Level 1758 MG/DL Lipase 331 U/L Administered Medications Medications (Trade) Dose Ordered Sig/Katalina Route PRN Reason Start Time Stop Time Status Last Admin Dose Admin Sodium Chloride 1,000 ml @ 225 mls/hr Q4H27M IV 03/05/18 17:00 03/07/18 10:01 Insulin Aspart (NovoLOG SUPPLEMENTAL SCALE) 1 ACHS SLIDING SCALE SQ 03/06/18 08:00 03/07/18 08:37 Sodium Chloride (NS Flush) 2 ml BID IV FLUSH 03/06/18 09:00 03/07/18 08:37 Ondansetron HCl (Zofran Inj) 4 mg Q6H PRN IVP NAUSEA OR VOMITING 03/06/18 00:00 03/06/18 15:34 Hydromorphone HCl (Dilaudid Pf Inj) 1 mg Q3H PRN IV PAIN SCALE 6 TO 10 03/06/18 00:15 03/06/18 16:38 Senna/Docusate Sodium (Tayler-Colace) 1 tab BID PO 03/06/18 09:00 03/07/18 08:39 Alprazolam (Xanax) 0.5 mg Q4H PRN PO ANXIETY 03/06/18 00:00 03/06/18 02:21 Atorvastatin Calcium (Lipitor) 20 mg HS PO 03/06/18 21:00 03/06/18 22:31 Metoprolol Succinate (Toprol Xl) 25 mg DAILY PO 03/06/18 09:00 03/07/18 08:37 Fenofibrate (Tricor) 145 mg DAILY PO 03/06/18 09:00 03/07/18 08:38 Trazodone HCl (Desyrel) 100 mg HS PO 03/06/18 21:00 03/06/18 22:31 Pantoprazole Sodium (Protonix) 40 mg Q12HR PO 03/06/18 09:00 03/07/18 08:37 Ceftriaxone Sodium 1000 mg/ Sodium Chloride 100 ml @ 200 mls/hr Q24H IV 03/06/18 00:00 03/07/18 02:26 Gabapentin (Neurontin) 100 mg HS PO 03/06/18 21:00 03/06/18 22:31 Metoclopramide HCl (Reglan Inj) 10 mg Q8H PRN IV PUSH NAUSEA/VOMITING 03/06/18 01:30 03/06/18 02:21 Aspirin (Ecotrin Ec) 81 mg DAILY PO 03/06/18 09:00 03/07/18 08:38 Calcium Carbonate (Oscal) 500 mg Q12HR PO 03/06/18 21:00 03/10/18 20:59 03/07/18 08:38 Chlorhexidine Gluconate (Chlorhexidine 2% Cloth) 3 pack DAILY@04 TOPICAL 03/07/18 04:00 03/11/18 04:01 03/07/18 04:00 Methylprednisolone Sodium Succinate (SoluMEDROL INJ) 125 mg Q24H IV PUSH 03/06/18 22:00 03/10/18 22:01 03/07/18 01:41 Famotidine (Pepcid Inj) 20 mg Q24H IV PUSH 03/06/18 22:00 03/10/18 22:01 03/07/18 01:42 Diphenhydramine HCl (Benadryl Inj) 25 mg UNSCH PRN IV PUSH SEE LABEL COMMENTS 03/06/18 21:30 03/12/18 21:29 03/07/18 01:42 Calcium Gluconate 3.5 gm/Sodium Chloride 285 ml @ 95 mls/hr Q24H IV 03/06/18 22:00 03/11/18 21:59 03/07/18 01:41 Anticoagulant Citrate Dextose Camryn A (Acd Formula Inj) 1,000 ml Q24H OTHER 03/06/18 22:00 03/11/18 21:59 03/07/18 01:44 Objective Remarks GENERAL: Older female resting in bed talking on the phone on a partial nonrebreather SKIN: Warm and dry. HEAD: Normocephalic. EYES: No injection or drainage. NECK: Supple, trachea midline. Vas-Cath right neck. No oozing. CARDIOVASCULAR: Regular rate and rhythm without murmurs. RESPIRATORY: On partial nonrebreather. Breathing unlabored at rest. GASTROINTESTINAL: Abdomen soft, mildly tender to palpation EXTREMITIES: No cyanosis, or edema. MUSCULOSKELETAL: Adequate muscle tone. NEUROLOGICAL: No obvious focal deficit. Awake, alert, and oriented x3. Assessment/Plan Problem List: (1) Pancreatitis ICD Codes: K85.90 - Acute pancreatitis without necrosis or infection, unspecified Plan: -- Due to hypertriglyceridemia --Hematology consulted for pheresis --Plan pheresis until triglycerides less than 500 Assessment 62-year-old female admitted with pancreatitis; hematology consulted for management of pheresis Plan 1. Continue pheresis until triglycerides less than or equal to 500 2. Await protein corrected calcium level 3. Okay for clear liquids 4. Supportive care Attending Statement The exam, history, and the medical decision-making described in the above note were completed with the assistance of the mid-level provider. I reviewed and agree with the findings presented. I attest that I had a [id number] encounter with the patient on the same day, and personally performed and documented my assessment and findings in the medical record. Pt seen and examined. Clinically improved, tolerated Vascath placement by Dr. Uriarte. Tolerated procedure well. TG 1758, anticipate pheresis tomorrow. Continue supportive tx, clear liquid diet started. Loraine Frank Mar 07, 2018 11:28 Melva Campos MD Mar 07, 2018 18:05
[2018-03-07 11:45] LABS: CALCIUM-PROTEIN CORRECTED 6.9 MG/DL (8.5-10.1)
--- NOTE | 2018-03-07 13:16 | HHI.GIFU ---
GI Follow-up Note Consult Follow-up Subjective: Patient laying in bed comfortably, no new complaints except feeling tired and abdominal pain Objective: PHYSICAL EXAMINATION: Vitals signs stable No fever HEENT: Pupils round and reactive to light; normocephalic; atraumatic; no jaundice. Throat is clear. NECK: Neck is supple, no JVD, no lymphadenopathy. CHEST: Chest is clear to auscultation and percussion. CARDIAC: Regular rate and rhythm with no murmur gallop or rubs. ABDOMEN: Soft, nondistended, nontender; no hepatosplenomegaly; bowel sounds are present in all four quadrants. EXTREMITIES: No clubbing, cyanosis, or edema. SKIN: Normal; no rash; no jaundice. FINANCIAL EXAMINER: No focal deficits; alert and oriented times three. Available Data (labs, X- Rays, Procedues) : Last Impressions Chest X-Ray 03/05/18 170 Signed Impressions: Service Date/Time: Monday, March 05, 2018 17:06 - CONCLUSION: Linear atelectasis or scar lower lateral left lung. The remainder of the lungs are clear. Brian Salinas MD Abdomen/Pelvis CT 03/05/18 1700 Signed Impressions: Service Date/Time: Monday, March 05, 2018 22:28 - CONCLUSION: 1. Moderate severity peripancreatic edema indicating acute pancreatitis in the proper clinical setting. No organized drainable fluid collections identified. 2. Nonobstructing right renal calculus unchanged. 3. Colonic diverticulosis with no evidence of acute diverticulitis. 4. Fibroid uterus. Jaun White MD CT Angiography 03/05/18 0000 Signed Impressions: Service Date/Time: Monday, March 05, 2018 22:28 - CONCLUSION: Peribronchial thickening with moderate bibasilar parenchymal changes suggesting chronic bronchitis. Negative for central pulmonary emboli. Valentin Uriarte MD FACR Laboratory Tests Test 03/05/18 17:05 03/05/18 18:44 03/06/18 00:20 03/06/18 09:19 White Blood Count 15.2 TH/MM3 12.3 TH/MM3 Red Blood Count 4.51 MIL/MM3 4.25 MIL/MM3 Hemoglobin 14.1 GM/DL 11.0 GM/DL Hematocrit 35.1 % 33.0 % Mean Corpuscular Volume 77.9 FL 77.7 FL Mean Corpuscular Hemoglobin 31.1 PG 25.9 PG Mean Corpuscular Hemoglobin Concent 40.0 % 33.3 % Red Cell Distribution Width 14.9 % 15.3 % Platelet Count 322 TH/MM3 285 TH/MM3 Mean Platelet Volume 8.7 FL 9.0 FL CBC Comment AUTO DIFF DIFF FINAL Differential Total Cells Counted 100 Neutrophils % (Manual) 76 % Band Neutrophils % 2 % Lymphocytes % 18 % Monocytes % 4 % Neutrophils # (Manual) 11.9 TH/MM3 Differential Comment FINAL DIFF MANUAL Platelet Estimate NORMAL Platelet Morphology Comment NORMAL Prothrombin Time 9.3 SEC Prothromb Time International Ratio 0.9 RATIO Activated Partial Thromboplast Time 25.0 SEC Blood Urea Nitrogen 10 MG/DL 4 MG/DL Creatinine 0.71 MG/DL 0.64 MG/DL Random Glucose 195 MG/DL 268 MG/DL Total Protein 6.9 GM/DL 6.4 GM/DL Albumin 2.8 GM/DL 2.3 GM/DL Calcium Level 7.3 MG/DL 5.8 MG/DL Alkaline Phosphatase 75 U/L 60 U/L Aspartate Amino Transf (AST/SGOT) 69 U/L 87 U/L Alanine Aminotransferase (ALT/SGPT) LESS THAN 60 U/L 61 U/L Total Bilirubin 0.5 MG/DL 0.6 MG/DL Sodium Level 131 MEQ/L 130 MEQ/L Potassium Level 4.0 MEQ/L 3.4 MEQ/L Chloride Level 100 MEQ/L 99 MEQ/L Carbon Dioxide Level 13.5 MEQ/L 12.8 MEQ/L Anion Gap 18 MEQ/L 18 MEQ/L Estimat Glomerular Filtration Rate 84 ML/MIN 95 ML/MIN Protein Corrected Calcium 7.4 MG/DL 6.1 MG/DL Total Creatine Kinase 60 U/L Troponin I LESS THAN 0.02 NG/ML LESS THAN 0.02 NG/ML LESS THAN 0.02 NG/ML Lipase 934 U/L 1556 U/L Urine Color COLORLESS Urine Turbidity CLEAR Urine pH 5.5 Urine Specific [place] 1.007 Urine Protein NEG mg/dL Urine Glucose (UA) 150 mg/dL Urine Ketones 10 mg/dL Urine Occult Blood MOD Urine Nitrite NEG Urine Bilirubin NEG Urine Urobilinogen LESS THAN 2.0 MG/DL Urine Leukocyte Esterase SMALL Urine RBC 6 /hpf Urine WBC 4 /hpf Urine Squamous Epithelial Cells 1 /hpf Microscopic Urinalysis Comment CULT NOT INDICATED Neutrophils (%) (Auto) 83.0 % Lymphocytes (%) (Auto) 10.0 % Monocytes (%) (Auto) 6.3 % Eosinophils (%) (Auto) 0.3 % Basophils (%) (Auto) 0.4 % Neutrophils # (Auto) 9.6 TH/MM3 Lymphocytes # (Auto) 1.1 TH/MM3 Monocytes # (Auto) 0.7 TH/MM3 Eosinophils # (Auto) 0.0 TH/MM3 Basophils # (Auto) 0.0 TH/MM3 Hematology Comments Hemoglobin A1c 8.5 % Magnesium Level 1.6 MG/DL Triglycerides Level 6339 MG/DL Cholesterol Level 359 MG/DL LDL Cholesterol MG/DL HDL Cholesterol 25.6 MG/DL Cholesterol/HDL Ratio 14.02 RATIO Test 03/06/18 20:00 03/07/18 10:15 03/07/18 10:37 Nasal Screen MRSA (PCR) MRSA NOT DETECTED Blood Urea Nitrogen 6 MG/DL Creatinine 0.53 MG/DL Random Glucose 240 MG/DL Total Protein 6.0 GM/DL Albumin 3.5 GM/DL Calcium Level 6.4 MG/DL Phosphorus Level 1.0 MG/DL Magnesium Level 2.3 MG/DL Alkaline Phosphatase 33 U/L Aspartate Amino Transf (AST/SGOT) 14 U/L Alanine Aminotransferase (ALT/SGPT) 20 U/L Total Bilirubin 0.7 MG/DL Sodium Level 143 MEQ/L Potassium Level 3.6 MEQ/L Chloride Level 112 MEQ/L Carbon Dioxide Level 17.9 MEQ/L Anion Gap 13 MEQ/L Estimat Glomerular Filtration Rate 118 ML/MIN Protein Corrected Calcium 6.9 MG/DL Triglycerides Level 1758 MG/DL Lipase 331 U/L Fibrinogen 375 mg/dL Allergies Coded Allergies Type Severity Reaction Last Updated Verified No Known Allergies Adverse Reaction Unknown 10/09/17 No Active Scripts Medications Dose Route/Sig Max Daily Dose Days Date Category Dose Instructions Bentyl (Dicyclomine HCl) 10 Mg Cap 10 Mg PO TID PRN 10/09/17 Reported Trazodone (Trazodone HCl) 100 Mg Tablet 100 Mg PO HS 10/09/17 Reported Tramadol (Tramadol HCl) 50 Mg Tab 50 Mg PO Q6H PRN 10/09/17 Reported Alprazolam 0.5 Mg Tab 0.5 Mg PO Q4H PRN 10/09/17 Reported Gabapentin 300 Mg Cap 120 Mg PO HS 10/09/17 Reported Metoprolol Succinate ER 24 HR (Metoprolol Succinate) 25 Mg Tab 25 Mg PO DAILY 10/09/17 Reported Fenofibrate 160 Mg Tab 160 Mg PO DAILY 10/09/17 Reported Atorvastatin (Atorvastatin Calcium) 20 Mg Tab 20 Mg PO HS 10/09/17 Reported Losartan (Losartan Potassium) 50 Mg Tab 50 Mg PO DAILY 10/09/17 Reported Prempro Blister Pack (Estrogens Conj/Medroxyprogest Acet) 0.3-1.5 Mg Tab 1 Tab PO DAILY 10/09/17 Reported Omeprazole 20 Mg Tab 20 Mg PO DAILY 10/09/17 Reported Glipizide 5 Mg Tab 2.5 Mg PO BIDAC 10/09/17 Reported Take 30 minutes before a meal ASSESSMENT/PLAN: Seen and examined, overall better after plasmapheresis. appreciate Dr Lomeli. Labs improved today. May need additional apharesis to be determined by Dr. lomeli. Clear liquid diet. IVF. It was a pleasure seeing Deanne Allen Thank you for this consult. Entered by: Ailyn Villar MD Mar 07, 2018 13:16
--- NOTE | 2018-03-07 14:11 | HHI.PR ---
Subjective Remarks Patient stated she feels much better today Abdominal pain and nausea Still has some soreness in her epigastric area but better than yesterday She is on oxygen at per the nurse patient desaturates to the lower 80 she is now on oxygen mask Objective Vitals Vital Signs Date Time Temp Pulse Resp B/P (MAP) Pulse Ox O2 Delivery O2 Flow Rate FiO2 03/07/18 12:00 97.7 104 26 130/59 (82) 96 03/07/18 12:00 104 03/07/18 10:00 101 03/07/18 08:00 97.8 110 29 145/65 (91) 91 03/07/18 08:00 110 03/07/18 08:00 94 Partial Non-Rebreather 12.00 03/07/18 06:00 110 03/07/18 04:00 98.2 110 33 137/63 (87) 92 03/07/18 04:00 110 03/07/18 02:00 105 03/07/18 00:00 106 03/07/18 00:00 98.0 106 34 138/63 (88) 93 03/06/18 23:30 109 35 91 03/06/18 23:00 111 35 140/65 (90) 91 03/06/18 23:00 94 Partial Non-Rebreather 12.00 03/06/18 22:30 114 32 92 03/06/18 22:00 117 44 150/66 (94) 94 03/06/18 22:00 117 03/06/18 21:30 115 34 93 03/06/18 21:00 94 Partial Non-Rebreather 10.00 03/06/18 21:00 113 40 141/69 (93) 94 03/06/18 20:00 87 Simple Mask 8.00 03/06/18 20:00 118 03/06/18 20:00 98.4 118 20 142/64 (90) 87 03/06/18 16:00 98.6 110 22 124/70 (88) 94 03/06/18 16:00 Nasal Cannula 3.00 03/06/18 16:00 119 I/O 03/06/18 03/06/18 03/06/18 03/07/18 03/07/18 03/07/18 07:00 15:00 23:00 07:00 15:00 23:00 Intake Total 1251 ml 240 ml 2100 ml Output Total 1 ml 2250 ml Balance 1250 ml 240 ml -150 ml Intake Oral 50 ml 240 ml IV Total 1201 ml 2100 ml Output Urine Total 2250 ml Emesis 1 ml # Voids 0 3 3 # Bowel Movements 0 Result Diagram: 03/06/18 0919 03/07/18 1015 Objective Remarks GENERAL: This is a well-nourished, well-developed patient, in no apparent distress. SKIN: No rashes, warm and dry HEAD: Atraumatic. Normocephalic. EYES: Pupils equal round and reactive. Extraocular motions intact. No scleral icterus. ENT: Nose without bleeding, or drainage, Airway patent. NECK: Trachea midline. Supple CARDIOVASCULAR: Regular rate and rhythm without murmurs, gallops, or rubs. RESPIRATORY: Fair air entry bilaterally. No wheezes, rales, or rhonchi. GASTROINTESTINAL: Abdomen soft, generalized tenderness more on the epigastric right and left upper quadrant area, no rebound or guarding, nondistended. Positive bowel sounds MUSCULOSKELETAL: Extremities without clubbing, cyanosis, or edema. Pedal pulses appreciated NEUROLOGICAL: Awake and alert. Moves all extremity. Normal speech.no focal neurological deficit A/P Problem List: (1) SIRS (systemic inflammatory response syndrome) ICD Code: R65.10 - Systemic inflammatory response syndrome (SIRS) of non- infectious origin without acute organ dysfunction (2) Pancreatitis ICD Code: K85.90 - Acute pancreatitis without necrosis or infection, unspecified (3) Chest pain ICD Code: R07.9 - Chest pain, unspecified (4) Hypocalcemia ICD Code: E83.51 - Hypocalcemia (5) Dehydration ICD Code: E86.0 - Dehydration (6) DM (diabetes mellitus) ICD Code: E11.9 - Type 2 diabetes mellitus without complications Assessment and Plan -Severe acute pancreatitis with lipase trending up -Severe hypertriglyceridemia and hypercholesterolemia -Anion gap metabolic acidosis -Severe hypocalcemia and dehydration -Diabetes mellitus Plan: Consult GI appreciate input, discussed today with , consulted hematology, started on plasmapheresis today with improvement of the PT level and symptoms CT abdomen personally reviewed by me Continue close BMP and electrolyte monitoring and replacement as needed Monitor CMP Accu-Chek with insulin sliding scale hold glipizide keep patient n.p.o. Generous IV fluid to 250 cc Monitor anion gap which is 18 Surinder Conner MD Mar 07, 2018 14:11
--- NOTE | 2018-03-07 14:52 | RADRPT ---
EXAM DATE/TIME: 03/07/2018 14:25 [facility] COMPARISON: CHEST SINGLE AP, March 05, 2018, 17:06. INDICATIONS : Short of breath MEDICAL HISTORY : Hypertension. Gastroesophageal reflux disease. Cardiovascular disease Diabetes. Renal calculi SURGICAL HISTORY : Cholecystectomy. ENCOUNTER: Subsequent ACUITY: 2 days PAIN SCORE: 0/10 LOCATION: chest FINDINGS: A single view of the chest demonstrates right-sided vas catheter in superior vena cava. Bilateral mos tly basilar airspace disease. No significant effusion. No pneumothorax. CONCLUSION: 1. Vascular congestion pattern with mild basilar airspace disease, most characteristic of mild pulmon prasanna edema with some associated atelectasis or scarring. Right vas catheter in superior vena cava. Russell Abdullahi MD on March 07, 2018 at 14:48 Board Certified Radiologist. This report was verified electronically.
[2018-03-07] MEDS ORDERED: CALCIUM GLUCONATE INJ 1 GM in DEXTROSE 5% IN WATER 100ML INJ 100 ML IV ONE ×2 (19:30)
[2018-03-07] MEDS: GABAPENTIN 100 MG CAP PO SCH (20:23)
[2018-03-07] MEDS: ATORVASTATIN 20 MG TAB PO SCH (20:25)
[2018-03-07] MEDS: traZODone HCL 100 MG TAB PO SCH (20:25)
[2018-03-07] MEDS: ALBUMIN 5% INJ 3,500 ML IV SCH (22:00)
[2018-03-08] VITALS (19 sets, daily range): BP systolic 124–180; BP diastolic 58–79; PULSE 98–140; RESP 26–59; TEMP 98.2–99.4; O2SAT 87–99
[2018-03-08] MEDS: cefTRIAXone INJ 1,000 MG in SODIUM CHLORIDE 0.9% INJ 100 ML IV SCH (00:15)
[2018-03-08] MEDS: SODIUM CHLOR 0.9% 1000 ML INJ 1,000 ML IV SCH ×3 (02:18→10:16)
[2018-03-08] MEDS: CHLORHEXIDINE GLUCONATE 2 % 1 PACK (2 CLOTHS)(taper/protocol) TOPICAL SCH (04:00)
[2018-03-08 08:32] LABS: AUTOMATED NEUTROPHIL # 9.7 TH/MM3 (1.8-7.7); BASOPHIL % 0.2 % (0.0-2.0); EOSINOPHIL # 0.1 TH/MM3 (0-0.4); HEMATOCRIT 28.1 % (35.0-46.0); HEMOGLOBIN 9.4 GM/DL (11.6-15.3); LYMPH % 8.2 % (9.0-44.0); LYMPHOCYTE # 0.9 TH/MM3 (1.0-4.8); MEAN CELL VOLUME 78.4 FL (80.0-100.0); MEAN CORPUSCULAR HEMOGLOBIN 26.3 PG (27.0-34.0); MEAN CORPUSCULAR HGB CONC 33.6 % (32.0-36.0); MEAN PLATELET VOLUME 8.5 FL (7.0-11.0); MONO % 4.4 % (0.0-8.0); MONOCYTE # 0.5 TH/MM3 (0-0.9); NEUT % 86.2 % (16.0-70.0); PLATELET COUNT 187 TH/MM3 (150-450); RED BLOOD COUNT 3.58 MIL/MM3 (4.00-5.30); WHITE BLOOD COUNT 11.2 TH/MM3 (4.0-11.0)
[2018-03-08] MEDS: PANTOPRAZOLE SOD 40 MG DELAYED RELEASE TAB PO SCH ×2 (08:51→19:53)
[2018-03-08] MEDS: METOPROLOL SUCCINATE 25 MG EXTENDED RELEASE TAB PO SCH (08:51)
[2018-03-08] MEDS: DOCUSATE SODIUM 50 MG/SENNA 8.6 MG TAB PO SCH ×2 (08:51→19:54)
[2018-03-08] MEDS: CALCIUM CARBONATE 1.25 GM (CA 500 MG) TAB PO SCH ×2 (08:51→19:53)
[2018-03-08] MEDS: ASPIRIN EC 81 MG TABEC PO SCH (08:51)
[2018-03-08] MEDS: INSULIN ASPART SUPPLEMENTAL SCALE SQ SCH ×4 (08:51→20:58)
[2018-03-08] MEDS: SODIUM CHLORIDE 0.9% FLUSH 10 ML FLUSH IV FLUSH SCH ×2 (08:51→19:54)
[2018-03-08] MEDS: FENOFIBRATE 145 MG TAB PO SCH (08:51)
[2018-03-08 09:00] LABS: BICARBONATE 22.4 MEQ/L (21.0-32.0); CALCIUM 7.1 MG/DL (8.5-10.1); CALCIUM-PROTEIN CORRECTED 7.8 MG/DL (8.5-10.1); CREATININE 0.49 MG/DL (0.50-1.00); TOTAL BILIRUBIN ADULT 0.4 MG/DL (0.2-1.0); TOTAL PROTEIN 5.7 GM/DL (6.4-8.2)
[2018-03-08 09:01] LABS: PROTHROMBIN TIME - PATIENT 9.7 SEC (9.8-11.6)
--- NOTE | 2018-03-08 11:34 | HHI.GIFU ---
Subjective Remarks Pt resting in bed Denies any continued abdominal pain Tolerating clear liquids Denies nausea, vomiting States planned for repeat plasmapheresis today (Gemini Borja) Objective Vitals I&O Vital Signs Date Time Temp Pulse Resp B/P (MAP) Pulse Ox O2 Delivery O2 Flow Rate FiO2 03/08/18 10:00 102 03/08/18 08:00 98.6 105 35 165/72 (103) 93 03/08/18 08:00 105 03/08/18 07:00 93 Venturi Mask 50 03/08/18 06:00 109 03/08/18 04:00 98.7 108 26 130/58 (82) 87 03/08/18 04:00 108 03/08/18 02:00 100 03/08/18 00:00 98 03/08/18 00:00 98.8 98 27 124/60 (81) 92 03/07/18 22:00 96 03/07/18 20:00 104 03/07/18 20:00 99.3 104 34 136/63 (87) 93 03/07/18 19:02 93 Venturi Mask 6.00 50 03/07/18 19:00 93 Venturi Mask 50 03/07/18 18:00 96 03/07/18 17:30 94 Venturi Mask 6.00 50 03/07/18 16:00 104 03/07/18 16:00 98.7 104 32 121/58 (79) 95 03/07/18 14:00 109 03/07/18 12:00 97.7 104 26 130/59 (82) 96 03/07/18 12:00 104 I/O 03/07/18 03/07/18 03/07/18 03/08/18 03/08/18 03/08/18 07:00 15:00 23:00 07:00 15:00 23:00 Intake Total 2100 ml 1000 ml 2550 ml 480 ml Output Total 2250 ml 3500 ml 1250 ml Balance -150 ml 1000 ml -950 ml -770 ml Intake Oral 550 ml 480 ml IV Total 2100 ml 1000 ml 2000 ml Output Urine Total 2250 ml 3500 ml 1250 ml # Voids 3 5 Laboratory Laboratory Tests Test 03/07/18 17:50 03/08/18 06:55 Blood Gas Puncture Site LT RADIAL Blood Gas Patient Temperature 98.6 Blood Gas HCO3 18 Blood Gas Base Excess -5.9 Blood Gas Oxygen Saturation 94 Arterial Blood pH 7.38 Arterial Blood Partial Pressure CO2 32 Arterial Blood Partial Pressure O2 110 Arterial Blood Oxygen Content 12.4 Arterial Blood Carboxyhemoglobin 0.7 Arterial Blood Methemoglobin 3.1 Blood Gas Hemoglobin 9.3 Oxygen Delivery Device NRBR Blood Gas Liter Flow 15 Blood Gas Inspired Oxygen 100 White Blood Count 11.2 Red Blood Count 3.58 Hemoglobin 9.4 Hematocrit 28.1 Mean Corpuscular Volume 78.4 Mean Corpuscular Hemoglobin 26.3 Mean Corpuscular Hemoglobin Concent 33.6 Red Cell Distribution Width 16.0 Platelet Count 187 Mean Platelet Volume 8.5 Neutrophils (%) (Auto) 86.2 Lymphocytes (%) (Auto) 8.2 Monocytes (%) (Auto) 4.4 Eosinophils (%) (Auto) 1.0 Basophils (%) (Auto) 0.2 Neutrophils # (Auto) 9.7 Lymphocytes # (Auto) 0.9 Monocytes # (Auto) 0.5 Eosinophils # (Auto) 0.1 Basophils # (Auto) 0.0 CBC Comment DIFF FINAL Differential Comment Prothrombin Time 9.7 Prothromb Time International Ratio 1.0 Activated Partial Thromboplast Time 21.0 Fibrinogen 436 Blood Urea Nitrogen 7 Creatinine 0.49 Random Glucose 205 Total Protein 5.7 Albumin 3.0 Calcium Level 7.1 Alkaline Phosphatase 50 Aspartate Amino Transf (AST/SGOT) 23 Alanine Aminotransferase (ALT/SGPT) 24 Total Bilirubin 0.4 Sodium Level 142 Potassium Level 3.2 Chloride Level 110 Carbon Dioxide Level 22.4 Anion Gap 10 Estimat Glomerular Filtration Rate 129 Protein Corrected Calcium 7.8 Triglycerides Level 1193 Lipase 327 Imaging Last Impressions Chest X-Ray 03/07/18 0000 Signed Impressions: Service Date/Time: Wednesday, March 07, 2018 14:25 - CONCLUSION: 1. Vascular congestion pattern with mild basilar airspace disease, most characteristic of mild pulmonary edema with some associated atelectasis or scarring. Right vas catheter in superior vena cava. Russell Abdullahi MD Abdomen/Pelvis CT 03/05/18 1700 Signed Impressions: Service Date/Time: Monday, March 05, 2018 22:28 - CONCLUSION: 1. Moderate severity peripancreatic edema indicating acute pancreatitis in the proper clinical setting. No organized drainable fluid collections identified. 2. Nonobstructing right renal calculus unchanged. 3. Colonic diverticulosis with no evidence of acute diverticulitis. 4. Fibroid uterus. Juan White MD CT Angiography 03/05/18 0000 Signed Impressions: Service Date/Time: Monday, March 05, 2018 22:28 - CONCLUSION: Peribronchial thickening with moderate bibasilar parenchymal changes suggesting chronic bronchitis. Negative for central pulmonary emboli. Valentin Uriarte MD FACR Physical Exam HEENT: Normocephalic; atraumatic CHEST: Even/unlabored CARDIAC: RRR ABDOMEN: Distended, soft, nontender, bowel sounds active SKIN: Normal; no rash; no jaundice. SUPERVISOR CHLORINE LIQUEFACTION: No focal deficits; alert and oriented times three. (Gemini Borja) Assessment and Plan Plan Assessment: - Acute pancreatitis (first episode)- likely Triglycerides induced. CT Abdomen /Pelvis moderate severity peripancreatic edema indicating acute pancreatitis, no drainable fluid, nonobstructing right renal calculus. Pt is s/p Cholecystectomy. labs revealed high lipase, worsening today 934 ---> 1556, elevated LFTs, high triglycerides of 6339, cholesterol 359. Pt is on Atorvastatin and Fenofibrate at home. States she has hx of high triglycerides but never this high. Pt denies previous hx of pancreatitis, no family hx of this. Pt not a heavy or daily drinker, no new meds, doesn't take NSAIDs on regular basis - Leukocytosis- secondary to above, afebrile on Rocephin - High triglycerides of 6339, cholesterol 359. Per attending - DM per attending (03/08) Pt denies any continued abdominal pain, nausea, vomiting. Tolerating clear liquid diet. Pancreatitis likely secondary to hypertriglyceridemia. Lookout score- 5. S/P Vascath placement- planned for plasmapheresis today. Per hematology note, continue pheresis until triglycerides less than or equal to 500. Lipase now WNL. Triglycerides 1,193 Hypocalcemia- improving, currently 7.1 Anemia- secondary to IVF, dilutional Leukocytosis- improving, afebrile. Rocephin Plan: - Plasmapheresis per hematology - Monitor labs (CBC, CMP, triglycerides) - Clear liquid diet - IVF - Monitor intake and output - BGL control - Protonix - Further recommendations based on clinical course Pt has been seen and examined by myself and Dr. Delatorre and this note is written on his behalf (Gemini Borja) Plan Patient was seen and examined, agree with above-noted, he needs to be doing better, tolerating diet liquid, we'll advance as tolerated, continue to try to control triglyceride , hemoglobin stable (Melina Delatorre MD) Gemini Borja Mar 08, 2018 11:34 Melina Delatorre MD Mar 08, 2018 16:32
--- NOTE | 2018-03-08 14:43 | PD.PN.STU ---
Subjective Remarks Patient reports that she feels much better. She denies any nausea or vomiting and reports having a diminished appetite. She has had a normal bowel movement this morning and is urinating more frequently. She reports mild generalized muscle aches in her abdomen that she describes as a "soreness". She has no focal pain and denies pain in the epigastric area. She also endorses some swelling in her arms and legs. The patient had an episode of SOB overnight and got relief from oxygen via nasal canula. She states she has a long hx of smoking but has not smoked in 20 months. She is not on oxygen at home. Objective Vitals Vital Signs Date Time Temp Pulse Resp B/P (MAP) Pulse Ox O2 Delivery O2 Flow Rate FiO2 03/08/18 12:00 98.4 104 36 148/74 (98) 92 03/08/18 12:00 104 03/08/18 10:00 102 03/08/18 08:00 98.6 105 35 165/72 (103) 93 03/08/18 08:00 105 03/08/18 07:00 93 Venturi Mask 50 03/08/18 06:00 109 03/08/18 04:00 98.7 108 26 130/58 (82) 87 03/08/18 04:00 108 03/08/18 02:00 100 03/08/18 00:00 98 03/08/18 00:00 98.8 98 27 124/60 (81) 92 03/07/18 22:00 96 03/07/18 20:00 104 03/07/18 20:00 99.3 104 34 136/63 (87) 93 03/07/18 19:02 93 Venturi Mask 6.00 50 03/07/18 19:00 93 Venturi Mask 50 03/07/18 18:00 96 03/07/18 17:30 94 Venturi Mask 6.00 50 03/07/18 16:00 104 03/07/18 16:00 98.7 104 32 121/58 (79) 95 I/O 03/07/18 03/07/18 03/07/18 03/08/18 03/08/18 03/08/18 07:00 15:00 23:00 07:00 15:00 23:00 Intake Total 2100 ml 1000 ml 2550 ml 480 ml Output Total 2250 ml 3500 ml 1250 ml Balance -150 ml 1000 ml -950 ml -770 ml Intake Oral 550 ml 480 ml IV Total 2100 ml 1000 ml 2000 ml Output Urine Total 2250 ml 3500 ml 1250 ml # Voids 3 5 Result Diagram: 03/08/18 0655 03/08/18 0655 Imaging Last Impressions Chest X-Ray 03/07/18 0000 Signed Impressions: Service Date/Time: Wednesday, March 07, 2018 14:25 - CONCLUSION: 1. Vascular congestion pattern with mild basilar airspace disease, most characteristic of mild pulmonary edema with some associated atelectasis or scarring. Right vas catheter in superior vena cava. Russell Abdullahi MD Abdomen/Pelvis CT 03/05/18 1700 Signed Impressions: Service Date/Time: Monday, March 05, 2018 22:28 - CONCLUSION: 1. Moderate severity peripancreatic edema indicating acute pancreatitis in the proper clinical setting. No organized drainable fluid collections identified. 2. Nonobstructing right renal calculus unchanged. 3. Colonic diverticulosis with no evidence of acute diverticulitis. 4. Fibroid uterus. Juan White MD CT Angiography 03/05/18 0000 Signed Impressions: Service Date/Time: Monday, March 05, 2018 22:28 - CONCLUSION: Peribronchial thickening with moderate bibasilar parenchymal changes suggesting chronic bronchitis. Negative for central pulmonary emboli. Valentin Uriarte MD FACR Objective Remarks GENERAL: A well developed and well nourished female in no acute distress. SKIN: Warm and dry. HEENT: Normocephalic. No scleral icterus. No injection or drainage. Supple, trachea midline. CARDIOVASCULAR: Regular rate and rhythm without murmurs, gallops, or rubs. RESPIRATORY: Breath sounds equal bilaterally. Crackles heard in middle lobe B/L but worse on the right. GASTROINTESTINAL: Abdomen soft, mild tenderness at the umbilicus, no epigastric tenderness, bowel sounds present in all 4 quadrants. A/P Assessment and Plan 1. Acute pancreatitis (resolving) -GI and hematology are following -advance diet as tolerated -continue to replace electrolytes as needed per BMP, calcium is normalizing -patient will receive plasmapheresis again today -D/C IV fluids due to swelling and CXR showing vascular congestion -Monitor anion gap -Maintain insulin sliding scale for patient. -Lipase is within normal limits and triglycerides are continuing to trend down. -keep on O2 via nasal canula to keep saturation above 88% Paul Hernandez M3 Mar 08, 2018 14:43
[2018-03-08] MEDS ORDERED: ICU - CALL ORDERING PHYSICIAN PRN (15:00)
[2018-03-08] MEDS ORDERED: ICU - SODIUM PHOSPHATE 30 MMOL/NS 250 ML IV PRN ×2 (15:00)
[2018-03-08] MEDS ORDERED: ICU - POTASSIUM PHOSPHATE MONOBASIC 500 MG TAB PO PRN (15:00)
[2018-03-08] MEDS ORDERED: POTASSIUM CHLORIDE 25 MEQ EFFERVESCENT TAB PO PRN (15:00)
[2018-03-08] MEDS ORDERED: ICU - POTASSIUM PHOSPHATE 30 MMOL/NS 250 ML IV PRN ×2 (15:00)
[2018-03-08] MEDS ORDERED: ICU - POTASSIUM CHLORIDE/AQUEOUS SOLN 40 MEQ/100 ML IVPB IV PRN (15:00)
[2018-03-08] MEDS ORDERED: ICU - MAGNESIUM OXIDE 400 MG TAB PO PRN (15:00)
[2018-03-08] MEDS ORDERED: ICU - D/C ICU ELECTROLYTE ORDERS PRN (15:00)
[2018-03-08] MEDS ORDERED: ICU - MAGNESIUM SULFATE 4 GM/NS 100 ML IV PRN ×2 (15:00)
[2018-03-08] MEDS ORDERED: ICU - MAGNESIUM SULFATE 2 GM/NS 100 ML IV PRN ×2 (15:00)
--- NOTE | 2018-03-08 15:39 | PD.ONC.PN ---
Subjective Subjective Remarks Afebrile overnight. 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 she reports she went through three pads today. reports pain in abdomen is improved since she started plasma exchange. Objective Data Date Time Temp Pulse Resp B/P (MAP) Pulse Ox O2 Delivery O2 Flow Rate FiO2 03/08/18 12:00 98.4 104 36 148/74 (98) 92 03/08/18 12:00 104 03/08/18 10:00 102 03/08/18 08:00 98.6 105 35 165/72 (103) 93 03/08/18 08:00 105 03/08/18 07:00 93 Venturi Mask 50 03/08/18 06:00 109 03/08/18 04:00 98.7 108 26 130/58 (82) 87 03/08/18 04:00 108 03/08/18 02:00 100 03/08/18 00:00 98 03/08/18 00:00 98.8 98 27 124/60 (81) 92 03/07/18 22:00 96 03/07/18 20:00 104 03/07/18 20:00 99.3 104 34 136/63 (87) 93 03/07/18 19:02 93 Venturi Mask 6.00 50 03/07/18 19:00 93 Venturi Mask 50 03/07/18 18:00 96 03/07/18 17:30 94 Venturi Mask 6.00 50 03/07/18 16:00 104 03/07/18 16:00 98.7 104 32 121/58 (79) 95 03/08/18 03/08/18 03/08/18 07:00 15:00 23:00 Intake Total 480 ml Output Total 1250 ml Balance -770 ml Result Diagram: 03/08/18 0655 03/08/1855 Laboratory Results Laboratory Tests Test 03/07/18 17:50 03/08/18 06:55 Blood Gas Puncture Site LT RADIAL Blood Gas Patient Temperature 98.6 Blood Gas HCO3 18 mmol/L Blood Gas Base Excess -5.9 mmol/L Blood Gas Oxygen Saturation 94 % Arterial Blood pH 7.38 Arterial Blood Partial Pressure CO2 32 mmHg Arterial Blood Partial Pressure O2 110 mmHg Arterial Blood Oxygen Content 12.4 Vol % Arterial Blood Carboxyhemoglobin 0.7 % Arterial Blood Methemoglobin 3.1 % Blood Gas Hemoglobin 9.3 G/DL Oxygen Delivery Device NRBR Blood Gas Liter Flow 15 L/M Blood Gas Inspired Oxygen 100 % White Blood Count 11.2 TH/MM3 Red Blood Count 3.58 MIL/MM3 Hemoglobin 9.4 GM/DL Hematocrit 28.1 % Mean Corpuscular Volume 78.4 FL Mean Corpuscular Hemoglobin 26.3 PG Mean Corpuscular Hemoglobin Concent 33.6 % Red Cell Distribution Width 16.0 % Platelet Count 187 TH/MM3 Mean Platelet Volume 8.5 FL Neutrophils (%) (Auto) 86.2 % Lymphocytes (%) (Auto) 8.2 % Monocytes (%) (Auto) 4.4 % Eosinophils (%) (Auto) 1.0 % Basophils (%) (Auto) 0.2 % Neutrophils # (Auto) 9.7 TH/MM3 Lymphocytes # (Auto) 0.9 TH/MM3 Monocytes # (Auto) 0.5 TH/MM3 Eosinophils # (Auto) 0.1 TH/MM3 Basophils # (Auto) 0.0 TH/MM3 CBC Comment DIFF FINAL Differential Comment Prothrombin Time 9.7 SEC Prothromb Time International Ratio 1.0 RATIO Activated Partial Thromboplast Time 21.0 SEC Fibrinogen 436 mg/dL Blood Urea Nitrogen 7 MG/DL Creatinine 0.49 MG/DL Random Glucose 205 MG/DL Total Protein 5.7 GM/DL Albumin 3.0 GM/DL Calcium Level 7.1 MG/DL Alkaline Phosphatase 50 U/L Aspartate Amino Transf (AST/SGOT) 23 U/L Alanine Aminotransferase (ALT/SGPT) 24 U/L Total Bilirubin 0.4 MG/DL Sodium Level 142 MEQ/L Potassium Level 3.2 MEQ/L Chloride Level 110 MEQ/L Carbon Dioxide Level 22.4 MEQ/L Anion Gap 10 MEQ/L Estimat Glomerular Filtration Rate 129 ML/MIN Protein Corrected Calcium 7.8 MG/DL Triglycerides Level 1193 MG/DL Lipase 327 U/L Administered Medications Medications (Trade) Dose Ordered Sig/Katalina Route PRN Reason Start Time Stop Time Status Last Admin Dose Admin Insulin Aspart (NovoLOG SUPPLEMENTAL SCALE) 1 ACHS SLIDING SCALE SQ 03/06/18 08:00 03/08/18 11:27 Sodium Chloride (NS Flush) 2 ml BID IV FLUSH 03/06/18 09:00 03/08/18 08:51 Ondansetron HCl (Zofran Inj) 4 mg Q6H PRN IVP NAUSEA OR VOMITING 03/06/18 00:00 03/06/18 15:34 Hydromorphone HCl (Dilaudid Pf Inj) 1 mg Q3H PRN IV PAIN SCALE 6 TO 10 03/06/18 00:15 03/06/18 16:38 Senna/Docusate Sodium (Tayler-Colace) 1 tab BID PO 03/06/18 09:00 03/08/18 08:51 Alprazolam (Xanax) 0.5 mg Q4H PRN PO ANXIETY 03/06/18 00:00 03/06/18 02:21 Atorvastatin Calcium (Lipitor) 20 mg HS PO 03/06/18 21:00 03/07/18 20:25 Metoprolol Succinate (Toprol Xl) 25 mg DAILY PO 03/06/18 09:00 03/08/18 08:51 Fenofibrate (Tricor) 145 mg DAILY PO 03/06/18 09:00 03/08/18 08:51 Trazodone HCl (Desyrel) 100 mg HS PO 03/06/18 21:00 03/07/18 20:25 Pantoprazole Sodium (Protonix) 40 mg Q12HR PO 03/06/18 09:00 03/08/18 08:51 Ceftriaxone Sodium 1000 mg/ Sodium Chloride 100 ml @ 200 mls/hr Q24H IV 03/06/18 00:00 03/08/18 00:15 Gabapentin (Neurontin) 100 mg HS PO 03/06/18 21:00 03/07/18 20:23 Metoclopramide HCl (Reglan Inj) 10 mg Q8H PRN IV PUSH NAUSEA/VOMITING 03/06/18 01:30 03/06/18 02:21 Aspirin (Ecotrin Ec) 81 mg DAILY PO 03/06/18 09:00 03/08/18 08:51 Calcium Carbonate (Oscal) 500 mg Q12HR PO 03/06/18 21:00 03/10/18 20:59 03/08/18 08:51 Chlorhexidine Gluconate (Chlorhexidine 2% Cloth) 3 pack DAILY@04 TOPICAL 03/07/18 04:00 03/11/18 04:01 03/08/18 04:00 Methylprednisolone Sodium Succinate (SoluMEDROL INJ) 125 mg Q24H IV PUSH 03/06/18 22:00 03/10/18 22:01 03/07/18 01:41 Famotidine (Pepcid Inj) 20 mg Q24H IV PUSH 03/06/18 22:00 03/10/18 22:01 03/07/18 01:42 Diphenhydramine HCl (Benadryl Inj) 25 mg UNSCH PRN IV PUSH SEE LABEL COMMENTS 03/06/18 21:30 03/12/18 21:29 03/07/18 01:42 Calcium Gluconate 3.5 gm/Sodium Chloride 285 ml @ 95 mls/hr Q24H IV 03/06/18 22:00 03/11/18 21:59 03/07/18 01:41 Anticoagulant Citrate Dextose Camryn A (Acd Formula Inj) 1,000 ml Q24H OTHER 03/06/18 22:00 03/11/18 21:59 03/07/18 01:44 Objective Remarks GENERAL: pleasant middle aged female, sitting up in bed in [facility]. SKIN: Warm and dry. HEAD: Normocephalic. EYES: No injection or drainage. NECK: Supple, trachea midline. CARDIOVASCULAR: Regular rate and rhythm RESPIRATORY: Breath sounds equal bilaterally. No accessory muscle use. GASTROINTESTINAL: Abdomen soft,mildly tender epigastrium, nondistended. EXTREMITIES: No cyanosis. NEUROLOGICAL: awake and alert. normal speech. Assessment/Plan Problem List: (1) Pancreatitis ICD Codes: K85.90 - Acute pancreatitis without necrosis or infection, unspecified Plan: -- Due to hypertriglyceridemia --Hematology consulted for pheresis --Plan pheresis until triglycerides less than 500 Assessment 62-year-old female admitted with pancreatitis; hematology consulted for management of pheresis Plan 1. monitor H/H closely. explained to patient that she has conflicting needs: elevated triglycerides requiring emergent plasma exchange and vaginal bleeding which could be worsened with plasma exchange. 2. monitor coags, fibrinogen Attending Statement The exam, history, and the medical decision-making described in the above note were completed with the assistance of the mid-level provider. I reviewed and agree with the findings presented. I attest that I had a [id number] encounter with the patient on the same day, and personally performed and documented my assessment and findings in the medical record. Noted decrease in hgb, acute pancreatitis secondary to hypertriglyceridemia. TG still >1500, plan to pherese today, monitor TG daily. HEALTH SCIENCES PROGRAM COORDINATOR evaluation for bleeding. Anticipate transfusion support. Christine Solano Mar 08, 2018 15:39 Melva Campos MD Mar 08, 2018 18:01
[2018-03-08] MEDS: ICU - POTASSIUM CHLORIDE/AQUEOUS SOLN 20 MEQ/100 ML IVPB IV PRN ×2 (16:51→20:06)
--- NOTE | 2018-03-08 18:39 | HHI.PR ---
Subjective Remarks Reported feeling much better today, lipase and TG dec significantly No nausea or vomiting no abdominal pain Plan for an other plasmapheresis today Objective Vitals Vital Signs Date Time Temp Pulse Resp B/P (MAP) Pulse Ox O2 Delivery O2 Flow Rate FiO2 03/08/18 18:00 105 03/08/18 16:00 109 03/08/18 16:00 98.7 109 29 164/70 (101) 95 03/08/18 14:00 105 03/08/18 12:00 98.4 104 36 148/74 (98) 92 03/08/18 12:00 104 03/08/18 10:00 102 03/08/18 08:00 98.6 105 35 165/72 (103) 93 03/08/18 08:00 105 03/08/18 07:00 93 Venturi Mask 50 03/08/18 06:00 109 03/08/18 04:00 98.7 108 26 130/58 (82) 87 03/08/18 04:00 108 03/08/18 02:00 100 03/08/18 00:00 98 03/08/18 00:00 98.8 98 27 124/60 (81) 92 03/07/18 22:00 96 03/07/18 20:00 104 03/07/18 20:00 99.3 104 34 136/63 (87) 93 03/07/18 19:02 93 Venturi Mask 6.00 50 03/07/18 19:00 93 Venturi Mask 50 I/O 03/07/18 03/07/18 03/07/18 03/08/18 03/08/18 03/08/18 07:00 15:00 23:00 07:00 15:00 23:00 Intake Total 2100 ml 1000 ml 2550 ml 480 ml 525 ml Output Total 2250 ml 3500 ml 1250 ml 1625 ml Balance -150 ml 1000 ml -950 ml -770 ml -1100 ml Intake Oral 550 ml 480 ml 525 ml IV Total 2100 ml 1000 ml 2000 ml Output Urine Total 2250 ml 3500 ml 1250 ml 1625 ml # Voids 3 5 4 # Bowel Movements 1 Result Diagram: 03/08/18 0655 03/08/18 06 Objective Remarks GENERAL: This is a well-nourished, well-developed patient, in no apparent distress. SKIN: No rashes, warm and dry HEAD: Atraumatic. Normocephalic. EYES: Pupils equal round and reactive. Extraocular motions intact. No scleral icterus. ENT: Nose without bleeding, or drainage, Airway patent. NECK: Trachea midline. Supple CARDIOVASCULAR: Regular rate and rhythm without murmurs, gallops, or rubs. RESPIRATORY: Fair air entry bilaterally. Bibasilar Rales GASTROINTESTINAL: Abdomen soft, much less tenderness to palpation, no rebound or guarding, nondistended. Positive bowel sounds MUSCULOSKELETAL: Extremities without clubbing, cyanosis, or edema. Pedal pulses appreciated NEUROLOGICAL: Awake and alert. Moves all extremity. Normal speech.no focal neurological deficit A/P Problem List: (1) SIRS (systemic inflammatory response syndrome) ICD Code: R65.10 - Systemic inflammatory response syndrome (SIRS) of non- infectious origin without acute organ dysfunction (2) Pancreatitis ICD Code: K85.90 - Acute pancreatitis without necrosis or infection, unspecified (3) Chest pain ICD Code: R07.9 - Chest pain, unspecified (4) Hypocalcemia ICD Code: E83.51 - Hypocalcemia (5) Dehydration ICD Code: E86.0 - Dehydration (6) DM (diabetes mellitus) ICD Code: E11.9 - Type 2 diabetes mellitus without complications Assessment and Plan -Severe acute pancreatitis with lipase trending up -Severe hypertriglyceridemia and hypercholesterolemia -Anion gap metabolic acidosis -Severe hypocalcemia and dehydration -Diabetes mellitus Plan: Consult GI appreciate input, discussed today with , consulted hematology, started on plasmapheresis today with improvement of the PT level and symptoms CT abdomen personally reviewed by me Continue close BMP and electrolyte monitoring and replacement as needed Monitor CMP Accu-Chek with insulin sliding scale hold glipizide keep patient n.p.o. Generous IV fluid to 250 cc will be stopped due to pulmonary congestion Monitor anion gap which is 18 4/9: Clinically much improved, started on liquid diet, will DC IV fluids discussed with GI due to pulmonary congestion, encourage fluid oral intake, monitor JARVIS, repeat CMP, CBC in a.m. with lipase, plan for plasmapheresis today Surinder Conner MD Mar 08, 2018 18:39
[2018-03-08] MEDS: traZODone HCL 100 MG TAB PO SCH (19:53)
[2018-03-08] MEDS: ATORVASTATIN 20 MG TAB PO SCH (19:53)
[2018-03-08] MEDS: GABAPENTIN 100 MG CAP PO SCH (19:54)
[2018-03-08] MEDS ORDERED: LABETALOL HCL 100 MG/20 ML VIAL IV PUSH PRN (20:45)
[2018-03-08 21:50] LABS: HEMATOCRIT 25.1 % (35.0-46.0); HEMOGLOBIN 8.4 GM/DL (11.6-15.3)
[2018-03-08] MEDS: FAMOTIDINE 20 MG/2 ML VIAL IV PUSH SCH (21:54)
[2018-03-08] MEDS: methylPREDNISolone SOD SUCC 125 MG/2 ML VIAL IV PUSH SCH (21:54)
[2018-03-08] MEDS: hydrALAZINE HCL 20 MG/ML VIAL IV PUSH PRN (21:59)
[2018-03-08] MEDS: ANTICOAGULANT CITRATE DEXTROSE SOLN-A 1L OTHER SCH (22:00)
[2018-03-08] MEDS ORDERED: LORazepam 2 MG/ML VIAL IV ONE (23:00)
[2018-03-08] MEDS: RESP: ALBUTEROL 2.5 MG/IPRATROPIUM 0.5 MG NEB (SCH) NEB (23:25)
[2018-03-08] MEDS ORDERED: RESP: ALBUTEROL 2.5 MG/IPRATROPIUM 0.5 MG NEB (PRN) NEB (23:30)
[2018-03-09] VITALS (16 sets, daily range): BP systolic 146–181; BP diastolic 66–84; PULSE 100–129; RESP 20–79; TEMP 97.6–98.2; O2SAT 95–100
[2018-03-09] MEDS: ICU - POTASSIUM CHLORIDE/AQUEOUS SOLN 20 MEQ/100 ML IVPB IV PRN ×2 (00:16→03:25)
[2018-03-09] MEDS: cefTRIAXone INJ 1,000 MG in SODIUM CHLORIDE 0.9% INJ 100 ML IV SCH (00:20)
[2018-03-09] MEDS: RESP: ALBUTEROL 2.5 MG/IPRATROPIUM 0.5 MG NEB (SCH) NEB ×5 (03:47→20:03)
[2018-03-09] MEDS: CHLORHEXIDINE GLUCONATE 2 % 1 PACK (2 CLOTHS)(taper/protocol) TOPICAL SCH (04:00)
[2018-03-09] MEDS: hydrALAZINE HCL 20 MG/ML VIAL IV PUSH PRN (04:52)
[2018-03-09 06:41] LABS: AUTOMATED NEUTROPHIL # 12.7 TH/MM3 (1.8-7.7); BASOPHIL % 0.1 % (0.0-2.0); HEMATOCRIT 26.8 % (35.0-46.0); LYMPH % 4.8 % (9.0-44.0); LYMPHOCYTE # 0.7 TH/MM3 (1.0-4.8); MEAN CELL VOLUME 76.8 FL (80.0-100.0); MEAN CORPUSCULAR HEMOGLOBIN 25.8 PG (27.0-34.0); MEAN CORPUSCULAR HGB CONC 33.6 % (32.0-36.0); MEAN PLATELET VOLUME 8.6 FL (7.0-11.0); MONO % 3.1 % (0.0-8.0); MONOCYTE # 0.4 TH/MM3 (0-0.9); PLATELET COUNT 199 TH/MM3 (150-450); RED BLOOD COUNT 3.49 MIL/MM3 (4.00-5.30); RED CELL DISTRIBUTION WIDTH 15.3 % (11.6-17.2); WHITE BLOOD COUNT 13.8 TH/MM3 (4.0-11.0)
[2018-03-09 06:43] LABS: INTERNATIONAL NORMALIZED RATIO 1.1 RATIO; PROTHROMBIN TIME - PATIENT 10.8 SEC (9.8-11.6)
[2018-03-09 07:08] LABS: ALBUMIN 4.1 GM/DL (3.4-5.0); ALKALINE PHOSPHATASE 40 U/L (45-117); ALT (GPT) 24 U/L (10-53); AST (GOT) 28 U/L (15-37); BICARBONATE 17.3 MEQ/L (21.0-32.0); BLOOD UREA NITROGEN 7 MG/DL (7-18); CALCIUM 7.7 MG/DL (8.5-10.1); CHLORIDE 111 MEQ/L (98-107); CREATININE 0.44 MG/DL (0.50-1.00); GLOMERULAR FILTRATION RATE 146 ML/MIN (>89); GLUCOSE,RANDOM 225 MG/DL (74-106); SODIUM (NA) 141 MEQ/L (136-145); TRIGLYCERIDES 364 MG/DL (42-150)
[2018-03-09] MEDS: CALCIUM CARBONATE 1.25 GM (CA 500 MG) TAB PO SCH ×2 (08:13→20:43)
[2018-03-09] MEDS: ASPIRIN EC 81 MG TABEC PO SCH (08:13)
[2018-03-09] MEDS: FENOFIBRATE 145 MG TAB PO SCH (08:14)
[2018-03-09] MEDS: PANTOPRAZOLE SOD 40 MG DELAYED RELEASE TAB PO SCH ×2 (08:14→20:42)
[2018-03-09] MEDS: METOPROLOL SUCCINATE 25 MG EXTENDED RELEASE TAB PO SCH (08:14)
[2018-03-09] MEDS: DOCUSATE SODIUM 50 MG/SENNA 8.6 MG TAB PO SCH ×2 (08:14→20:43)
[2018-03-09] MEDS: INSULIN ASPART SUPPLEMENTAL SCALE SQ SCH ×4 (08:18→21:00)
[2018-03-09] MEDS: SODIUM CHLORIDE 0.9% FLUSH 10 ML FLUSH IV FLUSH SCH ×2 (08:18→20:45)
--- NOTE | 2018-03-09 09:51 | PD.CONS ---
HPI Chief Complaint postmenopausal bleeding Date Seen: Mar 09, 2018 Time Seen: 09:00 Travel History International Travel<30 Days: No Contact w/Intl Traveler<30Days: No Known Affected Area: No History of Present Illness HPI Ms Allen is a 62YO female who presented to [facility] with sepsis and acute pancreatitis secondary to hypertriglyceridemia who also complains of postmenopausal bleeding since this past summer. Pt follows with Dr Rachel Lee in [place] for [facility] [employer] care and reports that she had an ablation in [place] at age 48 and had not had any uterine bleeding or menses until last summer when she began spotting. She saw her Dr who anticipated performing another ablation; however, her uterus was found to be too small for this procedure. On US her uterus appeared to be normal except for a polyp which was removed without further incident. Pt then began spotting again on February 06 and before she could do anything about it, ended up in the hospital with pancreatitis. Currently, pt is soaking through 3 pads per day. Pt has three children delivered vaginally with first at age 18 and last at age 26. She had one spontaneous miscarriage during that time frame. Pt reports she always had heavy bleeding during her periods but had always had normal PAP smears. Pt states she has been on naturopathic/homeopathic HRT for many years. Pt desires a hysterectomy at some point. Para: 3 : 4 Miscarriage: 1 : 0 History Past Medical History Narrative Medical Depression Hypertension Hyperlipidemia (Hypercholesterolemia and Hypertriglyceridemia) Diabetes Mellitus Anxiety Obstetric History Obstetric History 3 live children at term 1 spontaneous miscarriage 1 D&C following miscarriage in her 20s Past Surgical History Narrative Surgical Cholecystectomy D&C in her 20s Family History Narrative Family History denies Social History Narrative Social History She is and lives with her Alcohol Use: Yes (occasional) Tobacco Use: No Substance Abuse: No Allergies-Medications (Allergen,Severity, Reaction): Coded Allergies: No Known Allergies (Unverified Adverse Reaction, Unknown, 10/09/17) Home Meds Reported Medications Dicyclomine (Bentyl) 10 Mg Cap, 10 MG PO TID Y for Bowel Management, CAP 0 Refills 10/09/17 Trazodone (Trazodone) 100 Mg Tablet, 100 MG PO HS for Control Depression, #30 TAB 0 Refills 10/09/17 Tramadol (Tramadol) 50 Mg Tab, 50 MG PO Q6H Y for PAIN, TAB 0 Refills 10/09/17 Alprazolam (Alprazolam) 0.5 Mg Tab, 0.5 MG PO Q4H Y for ANXIETY, TAB 0 Refills 10/09/17 Gabapentin (Gabapentin) 300 Mg Cap, 120 MG PO HS, #60 CAP 0 Refills 10/09/17 Metoprolol Succinate ER 24 HR (Metoprolol Succinate ER 24 HR) 25 Mg Tab, 25 MG PO DAILY, #30 TAB 0 Refills 10/09/17 Fenofibrate (Fenofibrate) 160 Mg Tab, 160 MG PO DAILY, #30 TAB 0 Refills 10/09/17 Atorvastatin (Atorvastatin) 20 Mg Tab, 20 MG PO HS for Cholesterol Management, # 30 TAB 0 Refills 10/09/17 Losartan (Losartan) 50 Mg Tab, 50 MG PO DAILY for Blood Pressure Management, # 30 TAB 0 Refills 10/09/17 Conjugated Estrogens-Medroxyprogesterone (Prempro Blister Pack) 0.3-1.5 Mg Tab, 1 TAB PO DAILY for Estrogen Supplements, #1 PACK 0 Refills 10/09/17 Omeprazole (Omeprazole) 20 Mg Tab, 20 MG PO DAILY, #30 TAB 0 Refills 10/09/17 Glipizide (Glipizide) 5 Mg Tab, 2.5 MG PO BIDAC for Blood Sugar Management, #60 TAB 0 Refills Take 30 minutes before a meal 10/09/17 Discontinued Scripts Metronidazole (Metronidazole) 500 Mg Tab, 500 MG PO TID for Infection, #18 TAB 0 Refills Prov:Maximo Hendrix MD 10/11/17 Ciprofloxacin (Ciprofloxacin) 500 Mg Tab, 500 MG PO BID for Infection, #12 TAB 0 Refills Prov:Maximo Hendrix MD 10/11/17 Review of Systems Genitourinary: Vaginal Bleeding (3 pads per day at present) Physical Exam Vital Signs Date Time Temp Pulse Resp B/P (MAP) Pulse Ox O2 Delivery O2 Flow Rate FiO2 03/09/18 08:05 98 Nasal Cannula 4.00 03/09/18 08:00 98.0 113 36 159/74 (102) 99 03/09/18 06:00 112 03/09/18 05:00 121 44 154/67 (96) 95 03/09/18 04:00 98.0 112 79 181/84 (116) 95 03/09/18 04:00 110 03/09/18 03:47 97 Nasal Cannula 4.00 03/09/18 02:00 106 03/09/18 01:11 99 40 03/09/18 00:00 129 03/09/18 00:00 128 42 162/79 (106) 96 03/08/18 23:35 96 40 03/08/18 23:00 135 59 153/65 (94) 96 03/08/18 22:45 137 53 98 03/08/18 22:34 99.4 137 51 156/68 (97) 98 03/08/18 22:30 140 03/08/18 22:00 109 28 170/73 (105) 98 03/08/18 21:15 104 45 180/78 (112) 99 03/08/18 21:00 98 Nasal Cannula 4.00 03/08/18 20:00 98.2 104 41 176/79 (111) 98 03/08/18 20:00 104 03/08/18 19:00 98 Nasal Cannula 4.00 03/08/18 18:00 105 03/08/18 16:00 109 03/08/18 16:00 98.7 109 29 164/70 (101) 95 03/08/18 14:00 105 03/08/18 12:00 98.4 104 36 148/74 (98) 92 03/08/18 12:00 104 03/08/18 10:00 102 Narrative GENERAL: Well-nourished, well-developed patient lying in bed, anxious with nasal cannula on and occasionally out of breath speaking. SKIN: Warm and dry. no rashes or lesions; however, several small ecchymoses on medial portion of upper left arm. HEAD: Normocephalic and atraumatic. EYES: No scleral icterus. No injection or drainage. EOMI. ENT: No nasal drainage noted. Mucous membranes pink. Airway patent. NECK: Supple, trachea midline. No JVD. CARDIOVASCULAR: Regular rate and rhythm without murmurs, gallops, or rubs. RESPIRATORY: Breath sounds equal bilaterally. No accessory muscle use. Occasionally out of breath speaking. On 2L NC. ABDOMEN/GI: Abdomen soft, mildly TTP, no rebound, no guarding GENITOURINARY: External Genitalia: intact and normal in appearance Pelvic exam: no cervical motion tenderness, normal pelvic structures, scant blood in the vagina EXTREMITIES: No cyanosis or edema. NEUROLOGICAL: Awake and alert. Motor and sensory grossly within normal limits. Five out of 5 muscle strength in all muscle groups. Normal speech. Data Data Vital Signs Reviewed: Yes Orders Orders [facility] Nursing Information (03/08/18 15:00) [facility] Nursing Information (03/08/18 15:00) Potassium Chlor 40 Meq Premix (Kcl 40 Me (03/08/18 15:00) Potassium Chloride Eff (K-Lyte Cl Eff) (03/08/18 15:00) Potassium Chlor 20 Meq Premix (Kcl 20 Me (03/08/18 15:00) Magnesium Sulfate Inj (Magnesium Sulfate (03/08/18 15:00) Magnesium Sulfate Inj (Magnesium Sulfate (03/08/18 15:00) Magnesium Oxide (Mag-Ox) (03/08/18 15:00) Sodium Phosphate Inj (Sodium Phosphate I (03/08/18 15:00) Potassium Phosphate (K-Phos) (03/08/18 15:00) Potassium Phosphate Inj (Potassium Phosp (03/08/18 15:00) Triglycerides (03/09/18 06:00) Coag Profile (03/09/18 06:00) Complete Blood Count With Diff (03/09/18 06:00) Comprehensive Metabolic Panel (03/09/18 06:00) Fibrinogen (03/09/18 06:00) Hgb & Hct (03/08/18 21:00) Consult Gynecology (03/08/18 ) (Hub Use Only)Inp Phy Cons/Ref (03/08/18 ) Hydralazine Inj (Apresoline Inj) (03/08/18 20:45) Labetalol Inj (Trandate Inj) (03/08/18 20:45) Lorazepam Inj (Ativan Inj) (03/08/18 23:00) Albuterol-Ipratropium Neb (Duoneb Neb) (03/09/18 00:00) Albuterol-Ipratropium Neb (Duoneb Neb) (03/08/18 23:30) Resp Request For Service (03/09/18 ) ^ Other Nursing Orders (03/09/18 07:29) Type And Screen (03/09/18 07:39) Vascular Access Team Consult/P PRN (03/09/18 07:44) Vascular Poc Ultrasound (03/09/18 ) Dialysis Request (03/09/18 07:52) Labs Laboratory Tests Test 03/08/18 21:23 03/09/18 04:50 03/09/18 04:56 Hemoglobin 8.4 9.0 Hematocrit 25.1 26.8 White Blood Count 13.8 Red Blood Count 3.49 Mean Corpuscular Volume 76.8 Mean Corpuscular Hemoglobin 25.8 Mean Corpuscular Hemoglobin Concent 33.6 Red Cell Distribution Width 15.3 Platelet Count 199 Mean Platelet Volume 8.6 Neutrophils (%) (Auto) 92.0 Lymphocytes (%) (Auto) 4.8 Monocytes (%) (Auto) 3.1 Eosinophils (%) (Auto) 0.0 Basophils (%) (Auto) 0.1 Neutrophils # (Auto) 12.7 Lymphocytes # (Auto) 0.7 Monocytes # (Auto) 0.4 Eosinophils # (Auto) 0.0 Basophils # (Auto) 0.0 CBC Comment DIFF FINAL Differential Comment Prothrombin Time 10.8 Prothromb Time International Ratio 1.1 Activated Partial Thromboplast Time 28.9 Fibrinogen 257 Blood Urea Nitrogen 7 Creatinine 0.44 Random Glucose 225 Total Protein 6.0 Albumin 4.1 Calcium Level 7.7 Alkaline Phosphatase 40 Aspartate Amino Transf (AST/SGOT) 28 Alanine Aminotransferase (ALT/SGPT) 24 Total Bilirubin 1.0 Sodium Level 141 Potassium Level 3.8 Chloride Level 111 Carbon Dioxide Level 17.3 Anion Gap 13 Estimat Glomerular Filtration Rate 146 Triglycerides Level 364 Last Impressions Chest X-Ray 03/07/18 0000 Signed Impressions: Service Date/Time: Wednesday, March 07, 2018 14:25 - CONCLUSION: 1. Vascular congestion pattern with mild basilar airspace disease, most characteristic of mild pulmonary edema with some associated atelectasis or scarring. Right vas catheter in superior vena cava. Russell Abdullahi MD Abdomen/Pelvis CT 03/05/18 1700 Signed Impressions: Service Date/Time: Monday, March 05, 2018 22:28 - CONCLUSION: 1. Moderate severity peripancreatic edema indicating acute pancreatitis in the proper clinical setting. No organized drainable fluid collections identified. 2. Nonobstructing right renal calculus unchanged. 3. Colonic diverticulosis with no evidence of acute diverticulitis. 4. Fibroid uterus. Juan White MD CT Angiography 03/05/18 0000 Signed Impressions: Service Date/Time: Monday, March 05, 2018 22:28 - CONCLUSION: Peribronchial thickening with moderate bibasilar parenchymal changes suggesting chronic bronchitis. Negative for central pulmonary emboli. Valentin Uriarte MD FACR MDM Medical Record Reviewed: Yes Narrative Course / MDM 62YO female with postmenopausal bleeding since January s/p polyp removal by [facility] in office in summer 2016. Likely increased due to pancreatitis. Pt on homeopathic HRT. 1. Postmenopausal bleeding -Normal pelvic exam with scant blood in vagina -Transvaginal US to visualize pelvic structures -If bleeding controlled/stable, prefer to manage as outpt with [facility] in [place] Thank you for referring Mrs Allen to the OB Hospitalist service. Pt seen and dw Edward Brunson and Abdias Reynolds Admitting diagnosis: Acute pancreatitis Favio Cha MD R1 Mar 09, 2018 09:51
--- NOTE | 2018-03-09 12:12 | PD.PN.STU ---
Subjective Remarks Pt says she feels even better than yesterday with the exception of being very tired. She continues to have small muscle aches in her abdomen but reports that they are improving. Over the night she acutely became SOB after getting worked up over being upset. She was given Ativan and Xanax to help calm down and was put on BiPAP with FiO2 of 40. She states that she has no SOB at the time of evaluation and denies any nausea or vomiting. She says she is "starving". She has a long hx of smoking but is not on O2 at home. Objective Vitals Vital Signs Date Time Temp Pulse Resp B/P (MAP) Pulse Ox O2 Delivery O2 Flow Rate FiO2 03/09/18 12:00 98.2 111 58 155/68 (97) 96 03/09/18 12:00 111 03/09/18 10:00 109 03/09/18 08:05 98 Nasal Cannula 4.00 03/09/18 08:00 98.0 113 36 159/74 (102) 99 03/09/18 08:00 113 03/09/18 07:00 99 Nasal Cannula 4.00 03/09/18 06:00 112 03/09/18 05:00 121 44 154/67 (96) 95 03/09/18 04:00 98.0 112 79 181/84 (116) 95 03/09/18 04:00 110 03/09/18 03:47 97 Nasal Cannula 4.00 03/09/18 02:00 106 03/09/18 01:11 99 40 03/09/18 00:00 129 03/09/18 00:00 128 42 162/79 (106) 96 03/08/18 23:35 96 40 03/08/18 23:00 135 59 153/65 (94) 96 03/08/18 22:45 137 53 98 03/08/18 22:34 99.4 137 51 156/68 (97) 98 03/08/18 22:30 140 03/08/18 22:00 109 28 170/73 (105) 98 03/08/18 21:15 104 45 180/78 (112) 99 03/08/18 21:00 98 Nasal Cannula 4.00 03/08/18 20:00 98.2 104 41 176/79 (111) 98 03/08/18 20:00 104 03/08/18 19:00 98 Nasal Cannula 4.00 03/08/18 18:00 105 03/08/18 16:00 109 03/08/18 16:00 98.7 109 29 164/70 (101) 95 03/08/18 14:00 105 I/O 03/08/18 03/08/18 03/08/18 03/09/18 03/09/18 03/09/18 07:00 15:00 23:00 07:00 15:00 23:00 Intake Total 480 ml 625 ml 520 ml Output Total 1250 ml 1625 ml 800 ml Balance -770 ml -1000 ml -280 ml Intake Oral 480 ml 525 ml 420 ml IV Total 100 ml 100 ml Output Urine Total 1250 ml 1625 ml 800 ml # Voids 4 2 # Bowel Movements 1 2 Result Diagram: 03/09/18 0450 03/09/18 0456 Objective Remarks GENERAL: A well-developed and well-nourished female in no acute distress. CARDIOVASCULAR: Regular rate and rhythm without murmurs, gallops, or rubs. RESPIRATORY: Breath sounds equal bilaterally with no crackles or rhonchi. No accessory muscle use. On nasal canula (4L). GASTROINTESTINAL: Abdomen soft, non-tender, nondistended. Bowel sounds present. A/P Assessment and Plan 1. Acute pancreatitis (resolving) -GI and hematology are following -advance diet as tolerated -continue to replace electrolytes as needed per BMP -Monitor anion gap -Maintain insulin sliding scale for patient. -Lipase is within normal limits and triglycerides are continuing to trend down, no in the 300's -keep on O2 via nasal canula to keep saturation above 88% Paul Hernandez M3 Mar 09, 2018 12:12
--- NOTE | 2018-03-09 12:52 | HHI.GIFU ---
Subjective Remarks Pt resting in bed Appears uncomfortable today, states it is just from not being comfortable in the bed Denies nausea, vomiting, abdominal pain Tolerating clear liquid diet (Gemini Borja) Objective Vitals I&O Vital Signs Date Time Temp Pulse Resp B/P (MAP) Pulse Ox O2 Delivery O2 Flow Rate FiO2 03/09/18 12:00 98.2 111 58 155/68 (97) 96 03/09/18 12:00 111 03/09/18 10:00 109 03/09/18 08:05 98 Nasal Cannula 4.00 03/09/18 08:00 98.0 113 36 159/74 (102) 99 03/09/18 08:00 113 03/09/18 07:00 99 Nasal Cannula 4.00 03/09/18 06:00 112 03/09/18 05:00 121 44 154/67 (96) 95 03/09/18 04:00 98.0 112 79 181/84 (116) 95 03/09/18 04:00 110 03/09/18 03:47 97 Nasal Cannula 4.00 03/09/18 02:00 106 03/09/18 01:11 99 40 03/09/18 00:00 129 03/09/18 00:00 128 42 162/79 (106) 96 03/08/18 23:35 96 40 03/08/18 23:00 135 59 153/65 (94) 96 03/08/18 22:45 137 53 98 03/08/18 22:34 99.4 137 51 156/68 (97) 98 03/08/18 22:30 140 03/08/18 22:00 109 28 170/73 (105) 98 03/08/18 21:15 104 45 180/78 (112) 99 03/08/18 21:00 98 Nasal Cannula 4.00 03/08/18 20:00 98.2 104 41 176/79 (111) 98 03/08/18 20:00 104 03/08/18 19:00 98 Nasal Cannula 4.00 03/08/18 18:00 105 03/08/18 16:00 109 03/08/18 16:00 98.7 109 29 164/70 (101) 95 03/08/18 14:00 105 I/O 4/9/18 4/903/08/18 03/09/18 03/09/18 03/09/18 07:00 15:00 23:00 07:00 15:00 23:00 Intake Total 480 ml 625 ml 520 ml Output Total 1250 ml 1625 ml 800 ml Balance -770 ml -1000 ml -280 ml Intake Oral 480 ml 525 ml 420 ml IV Total 100 ml 100 ml Output Urine Total 1250 ml 1625 ml 800 ml # Voids 4 2 # Bowel Movements 1 2 Laboratory Laboratory Tests Test 03/08/18 21:23 03/09/18 04:50 03/09/18 04:56 Hemoglobin 8.4 9.0 Hematocrit 25.1 26.8 White Blood Count 13.8 Red Blood Count 3.49 Mean Corpuscular Volume 76.8 Mean Corpuscular Hemoglobin 25.8 Mean Corpuscular Hemoglobin Concent 33.6 Red Cell Distribution Width 15.3 Platelet Count 199 Mean Platelet Volume 8.6 Neutrophils (%) (Auto) 92.0 Lymphocytes (%) (Auto) 4.8 Monocytes (%) (Auto) 3.1 Eosinophils (%) (Auto) 0.0 Basophils (%) (Auto) 0.1 Neutrophils # (Auto) 12.7 Lymphocytes # (Auto) 0.7 Monocytes # (Auto) 0.4 Eosinophils # (Auto) 0.0 Basophils # (Auto) 0.0 CBC Comment DIFF FINAL Differential Comment Prothrombin Time 10.8 Prothromb Time International Ratio 1.1 Activated Partial Thromboplast Time 28.9 Fibrinogen 257 Blood Urea Nitrogen 7 Creatinine 0.44 Random Glucose 225 Total Protein 6.0 Albumin 4.1 Calcium Level 7.7 Alkaline Phosphatase 40 Aspartate Amino Transf (AST/SGOT) 28 Alanine Aminotransferase (ALT/SGPT) 24 Total Bilirubin 1.0 Sodium Level 141 Potassium Level 3.8 Chloride Level 111 Carbon Dioxide Level 17.3 Anion Gap 13 Estimat Glomerular Filtration Rate 146 Triglycerides Level 364 Imaging Last Impressions Chest X-Ray 03/07/18 0000 Signed Impressions: Service Date/Time: Wednesday, March 07, 2018 14:25 - CONCLUSION: 1. Vascular congestion pattern with mild basilar airspace disease, most characteristic of mild pulmonary edema with some associated atelectasis or scarring. Right vas catheter in superior vena cava. Russell Abdullahi MD Abdomen/Pelvis CT 03/05/18 1700 Signed Impressions: Service Date/Time: Monday, March 05, 2018 22:28 - CONCLUSION: 1. Moderate severity peripancreatic edema indicating acute pancreatitis in the proper clinical setting. No organized drainable fluid collections identified. 2. Nonobstructing right renal calculus unchanged. 3. Colonic diverticulosis with no evidence of acute diverticulitis. 4. Fibroid uterus. Juan White MD CT Angiography 03/05/18 0000 Signed Impressions: Service Date/Time: Monday, March 05, 2018 22:28 - CONCLUSION: Peribronchial thickening with moderate bibasilar parenchymal changes suggesting chronic bronchitis. Negative for central pulmonary emboli. Valentin Uriarte MD FACR Physical Exam HEENT: Normocephalic; atraumatic CHEST: Even/unlabored CARDIAC: RRR ABDOMEN: Distended, soft, nontender, bowel sounds active SKIN: Normal; no rash; no jaundice. BUSINESS PLANNER: No focal deficits; alert and oriented times three. (Gemini Borja) Assessment and Plan Plan - Acute pancreatitis (first episode)- likely Triglycerides induced. CT Abdomen /Pelvis moderate severity peripancreatic edema indicating acute pancreatitis, no drainable fluid, nonobstructing right renal calculus. Pt is s/p Cholecystectomy. labs revealed high lipase, worsening today 934 ---> 1556, elevated LFTs, high triglycerides of 6339, cholesterol 359. Pt is on Atorvastatin and Fenofibrate at home. States she has hx of high triglycerides but never this high. Pt denies previous hx of pancreatitis, no family hx of this. Pt not a heavy or daily drinker, no new meds, doesn't take NSAIDs on regular basis - Leukocytosis- secondary to above, afebrile on Rocephin - High triglycerides of 6339, cholesterol 359. Per attending - DM per attending (03/08) Pt denies any continued abdominal pain, nausea, vomiting. Tolerating clear liquid diet. Pancreatitis likely secondary to hypertriglyceridemia. [place] score- 5. S/P Vascath placement- planned for plasmapheresis today. Per hematology note, continue pheresis until triglycerides less than or equal to 500. Lipase now WNL. Triglycerides 1,193 Hypocalcemia- improving, currently 7.1 Anemia- secondary to IVF, dilutional Leukocytosis- improving, afebrile. Rocephin (03/09) Pt appears uncomfortable today, but states it is just from back pain and being in the bed too long. Denies nausea, vomiting, abdominal pain. Tolerating clear liquids. S/P plasmapheresis yesterday, triglycerides now 364. Calcium continues to improve, currently 7.7. H/H dropped some last night but remains stable, likely secondary to menstrual bleeding. Evaluated by [employer] who is planning on transvaginal US and noted they prefer outpt follow up if stable IVF were discontinued by attending due to pulmonary congestion. Plan: - Advance to full liquid diet - Monitor labs (CBC, CMP, triglycerides) - Monitor intake and output - BGL control - Protonix - Further recommendations based on clinical course Patient has been seen and examined by myself and Dr. Delatorre and this note is written on his behalf (Gemini Borja) Plan Patient was seen and examined, agree with above-noted, ileus incidence from yesterday was evaluated, plan to monitor lab and advance diet as tolerated (Melina Delatorre MD) Gemini Borja Mar 09, 2018 12:52 Melina Delatorre MD Mar 09, 2018 15:19
--- NOTE | 2018-03-09 17:17 | HHI.PR ---
Subjective Remarks Patient on 4 L nasal cannula she had short of breath overnight she was placed on BiPAP Currently she looks okay she denied abdominal pain nausea or vomiting We stopped her IV fluid yesterday due to pulmonary congestion, trying to avoid diuretic at this point Objective Vitals Vital Signs Date Time Temp Pulse Resp B/P (MAP) Pulse Ox O2 Delivery O2 Flow Rate FiO2 03/09/18 14:00 109 03/09/18 12:00 98.2 111 58 155/68 (97) 96 03/09/18 12:00 111 03/09/18 10:00 109 03/09/18 08:05 98 Nasal Cannula 4.00 03/09/18 08:00 98.0 113 36 159/74 (102) 99 03/09/18 08:00 113 03/09/18 07:00 99 Nasal Cannula 4.00 03/09/18 06:00 112 03/09/18 05:00 121 44 154/67 (96) 95 03/09/18 04:00 98.0 112 79 181/84 (116) 95 03/09/18 04:00 110 03/09/18 03:47 97 Nasal Cannula 4.00 03/09/18 02:00 106 03/09/18 01:11 99 40 03/09/18 00:00 129 03/09/18 00:00 128 42 162/79 (106) 96 03/08/18 23:35 96 40 03/08/18 23:00 135 59 153/65 (94) 96 03/08/18 22:45 137 53 98 03/08/18 22:34 99.4 137 51 156/68 (97) 98 03/08/18 22:30 140 03/08/18 22:00 109 28 170/73 (105) 98 03/08/18 21:15 104 45 180/78 (112) 99 03/08/18 21:00 98 Nasal Cannula 4.00 03/08/18 20:00 98.2 104 41 176/79 (111) 98 03/08/18 20:00 104 03/08/18 19:00 98 Nasal Cannula 4.00 03/08/18 18:00 105 I/O 03/08/18 03/08/18 03/08/18 03/09/18 03/09/18 03/09/18 07:00 15:00 23:00 07:00 15:00 23:00 Intake Total 480 ml 625 ml 520 ml Output Total 1250 ml 1625 ml 800 ml Balance -770 ml -1000 ml -280 ml Intake Oral 480 ml 525 ml 420 ml IV Total 100 ml 100 ml Output Urine Total 1250 ml 1625 ml 800 ml # Voids 4 2 # Bowel Movements 1 2 Result Diagram: 03/09/1844903/09/18 0456 Objective Remarks GENERAL: This is a well-nourished, well-developed patient, in no apparent distress. SKIN: No rashes, warm and dry HEAD: Atraumatic. Normocephalic. EYES: Pupils equal round and reactive. Extraocular motions intact. No scleral icterus. ENT: Nose without bleeding, or drainage, Airway patent. NECK: Trachea midline. Supple CARDIOVASCULAR: Regular rate and rhythm without murmurs, gallops, or rubs. RESPIRATORY: Fair air entry bilaterally. Less bibasilar Rales GASTROINTESTINAL: Abdomen soft, much less tenderness to palpation, no rebound or guarding, nondistended. Positive bowel sounds MUSCULOSKELETAL: Extremities without clubbing, cyanosis, or edema. Pedal pulses appreciated NEUROLOGICAL: Awake and alert. Moves all extremity. Normal speech.no focal neurological deficit A/P Problem List: (1) SIRS (systemic inflammatory response syndrome) ICD Code: R65.10 - Systemic inflammatory response syndrome (SIRS) of non- infectious origin without acute organ dysfunction (2) Pancreatitis ICD Code: K85.90 - Acute pancreatitis without necrosis or infection, unspecified (3) Chest pain ICD Code: R07.9 - Chest pain, unspecified (4) Hypocalcemia ICD Code: E83.51 - Hypocalcemia (5) Dehydration ICD Code: E86.0 - Dehydration (6) DM (diabetes mellitus) ICD Code: E11.9 - Type 2 diabetes mellitus without complications Assessment and Plan -Severe acute pancreatitis with lipase trending up -Severe hypertriglyceridemia and hypercholesterolemia -Anion gap metabolic acidosis -Severe hypocalcemia and dehydration -Diabetes mellitus Plan: Consult GI appreciate input, discussed today with , consulted hematology, started on plasmapheresis today with improvement of the PT level and symptoms CT abdomen personally reviewed by me Continue close BMP and electrolyte monitoring and replacement as needed Monitor CMP Accu-Chek with insulin sliding scale hold glipizide keep patient n.p.o. Generous IV fluid to 250 cc will be stopped due to pulmonary congestion Monitor anion gap which is 18 03/08: Clinically much improved, started on liquid diet, will DC IV fluids discussed with GI due to pulmonary congestion, encourage fluid oral intake, monitor JARVIS, repeat CMP, CBC in a.m. with lipase, plan for plasmapheresis today 03/09: Patient had shortness of breath, placed on the BiPAP overnight, I will do x-ray to assess for pulmonary edema, patient has been urinating okay 4 L over the last shift, will transfer to [facility] floor. BRAND EXECUTIVE has been consulted for vaginal bleeding, they recommended transvaginal ultrasound which patient refused at this point, she will need to do it as a outpatient Surinder Conner MD Mar 09, 2018 17:17
--- NOTE | 2018-03-09 18:14 | HHI.PR ---
SUPPORT GROUP MANAGER Note Note Patient has refused pelvic ultrasound. 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 Dr. Lee is aware the patient has had postmenopausal bleeding after her ablation. If patient continues to bleed heavily and progesterone can be considered but otherwise my recommendation would be outpatient SCHOOL PSYCHOLOGY SPECIALIST evaluation after discharge. Nery Blue MD Mar 09, 2018 18:14
--- NOTE | 2018-03-09 20:02 | RADRPT ---
EXAM DATE/TIME: 03/09/2018 19:25 [place] COMPARISON: CHEST SINGLE AP, March 07, 2018, 14:25. INDICATIONS : Short of breath. MEDICAL HISTORY : Hypertension. Gastroesophageal reflux disease. Cardiovascular disease Diabetes. Renal calculi SURGICAL HISTORY : Cholecystectomy. ENCOUNTER: Subsequent ACUITY: 1 week PAIN SCORE: 0/10 LOCATION: Bilateral chest FINDINGS: A single AP semierect view of the chest was obtained and again demonstrates the right-sided central l ine in place. There is mild hazy opacity again noted in the lung bases as well as mild hazy opacity i n the right upper lobe. The heart size is at the upper limits of normal. There is no effusion. The otf ny thorax remains intact in appearance with overlying electrocardiogram leads. CONCLUSION: Mild hazy opacity remains in both lungs and could represent mild pulmonary edema. Myke Sierra MD on March 09, 2018 at 19:57 Board Certified Radiologist. This report was verified electronically.
[2018-03-09] MEDS: traZODone HCL 100 MG TAB PO SCH (20:42)
[2018-03-09] MEDS: ATORVASTATIN 20 MG TAB PO SCH (20:42)
[2018-03-09] MEDS: methylPREDNISolone SOD SUCC 125 MG/2 ML VIAL IV PUSH SCH (20:43)
[2018-03-09] MEDS: GABAPENTIN 100 MG CAP PO SCH (20:43)
[2018-03-09] MEDS: FAMOTIDINE 20 MG/2 ML VIAL IV PUSH SCH (20:44)
[2018-03-09] MEDS: ALBUMIN 5% INJ 3,500 ML IV SCH ×2 (20:45→22:00)
[2018-03-09] MEDS: SODIUM CHLOR 0.9% IV SCH ×2 (21:05→22:00)
[2018-03-09] MEDS: CALCIUM GLUCONATE IV SCH ×2 (21:05→22:00)
[2018-03-10] VITALS (17 sets, daily range): BP systolic 155–192; BP diastolic 70–81; PULSE 94–115; RESP 14–20; TEMP 97.8–99; O2SAT 94–98
[2018-03-10] MEDS: RESP: ALBUTEROL 2.5 MG/IPRATROPIUM 0.5 MG NEB (SCH) NEB ×7 (00:43→23:38)
[2018-03-10] MEDS: cefTRIAXone INJ 1,000 MG in SODIUM CHLORIDE 0.9% INJ 100 ML IV SCH ×2 (01:31→22:13)
[2018-03-10] MEDS: CHLORHEXIDINE GLUCONATE 2 % 1 PACK (2 CLOTHS)(taper/protocol) TOPICAL SCH (04:00)
[2018-03-10 05:23] LABS: BASOPHIL % 0.2 % (0.0-2.0); EOSINOPHIL % 0.1 % (0.0-4.0); HEMATOCRIT 24.8 % (35.0-46.0); HEMOGLOBIN 8.4 GM/DL (11.6-15.3); LYMPH % 7.8 % (9.0-44.0); LYMPHOCYTE # 0.7 TH/MM3 (1.0-4.8); MEAN CELL VOLUME 76.2 FL (80.0-100.0); MEAN CORPUSCULAR HEMOGLOBIN 25.8 PG (27.0-34.0); MEAN CORPUSCULAR HGB CONC 33.8 % (32.0-36.0); MONO % 2.6 % (0.0-8.0); MONOCYTE # 0.2 TH/MM3 (0-0.9); NEUT % 89.3 % (16.0-70.0); PLATELET COUNT 195 TH/MM3 (150-450); RED BLOOD COUNT 3.26 MIL/MM3 (4.00-5.30); RED CELL DISTRIBUTION WIDTH 15.8 % (11.6-17.2)
[2018-03-10 05:29] LABS: PROTHROMBIN TIME - PATIENT 10.3 SEC (9.8-11.6)
[2018-03-10 05:50] LABS: ALBUMIN 3.9 GM/DL (3.4-5.0); ALKALINE PHOSPHATASE 61 U/L (45-117); ALT (GPT) 51 U/L (10-53); AST (GOT) 97 U/L (15-37); BICARBONATE 19.3 MEQ/L (21.0-32.0); BLOOD UREA NITROGEN 9 MG/DL (7-18); CHLORIDE 112 MEQ/L (98-107); CREATININE 0.54 MG/DL (0.50-1.00); GLOMERULAR FILTRATION RATE 115 ML/MIN (>89); GLUCOSE,RANDOM 285 MG/DL (74-106); SODIUM (NA) 142 MEQ/L (136-145); TOTAL BILIRUBIN ADULT 0.8 MG/DL (0.2-1.0); TOTAL PROTEIN 6.3 GM/DL (6.4-8.2); TRIGLYCERIDES 373 MG/DL (42-150)
[2018-03-10] MEDS: DOCUSATE SODIUM 50 MG/SENNA 8.6 MG TAB PO SCH ×2 (09:00→21:00)
[2018-03-10] MEDS: FENOFIBRATE 145 MG TAB PO SCH (09:16)
[2018-03-10] MEDS: METOPROLOL SUCCINATE 25 MG EXTENDED RELEASE TAB PO SCH (09:16)
[2018-03-10] MEDS: CALCIUM CARBONATE 1.25 GM (CA 500 MG) TAB PO SCH (09:16)
[2018-03-10] MEDS: INSULIN ASPART SUPPLEMENTAL SCALE SQ SCH ×4 (09:16→21:00)
[2018-03-10] MEDS: SODIUM CHLORIDE 0.9% FLUSH 10 ML FLUSH IV FLUSH SCH ×2 (09:16→21:00)
[2018-03-10] MEDS: PANTOPRAZOLE SOD 40 MG DELAYED RELEASE TAB PO SCH ×2 (09:16→22:00)
[2018-03-10] MEDS: ASPIRIN EC 81 MG TABEC PO SCH (09:17)
--- NOTE | 2018-03-10 12:51 | PD.ONC.PN ---
Subjective Subjective Remarks Afebrile overnight. Patient resting in bed. she is hungry. tolerating liquid diet. wanting to eat. abdominal pain significantly improved. Objective Data Date Time Temp Pulse Resp B/P (MAP) Pulse Ox O2 Delivery O2 Flow Rate FiO2 03/10/18 11:35 97.8 101 20 167/79 (108) 96 03/10/18 09:25 94 21 03/10/18 08:00 Nasal Cannula 3.00 03/10/18 07:50 97 03/10/18 07:45 98.3 94 18 172/74 (106) 95 03/10/18 04:45 97 Nasal Cannula 3.00 03/10/18 04:04 99.0 108 14 155/73 (100) 94 03/10/18 04:04 94 Nasal Cannula 3.00 03/10/18 04:00 100 03/10/18 00:55 104 03/10/18 00:46 98 Nasal Cannula 3.00 03/10/18 00:00 97 Nasal Cannula 4.00 03/10/18 00:00 98.4 104 16 155/70 (98) 96 03/09/18 20:03 100 Nasal Cannula 3.00 03/09/18 20:00 97 Nasal Cannula 4.00 03/09/18 20:00 100 03/09/18 20:00 97.6 100 20 156/73 (100) 99 03/09/18 18:00 103 03/09/18 16:00 97.9 116 27 146/66 (92) 97 03/09/18 16:00 116 03/09/18 14:00 109 03/10/18 03/10/18 03/10/18 07:00 15:00 23:00 Intake Total 240 ml Output Total 1600 ml Balance -1360 ml Result Diagram: 03/10/18 0455 03/10/18 0455 Laboratory Results Laboratory Tests Test 03/10/18 04:55 White Blood Count 9.0 TH/MM3 Red Blood Count 3.26 MIL/MM3 Hemoglobin 8.4 GM/DL Hematocrit 24.8 % Mean Corpuscular Volume 76.2 FL Mean Corpuscular Hemoglobin 25.8 PG Mean Corpuscular Hemoglobin Concent 33.8 % Red Cell Distribution Width 15.8 % Platelet Count 195 TH/MM3 Mean Platelet Volume 8.0 FL Neutrophils (%) (Auto) 89.3 % Lymphocytes (%) (Auto) 7.8 % Monocytes (%) (Auto) 2.6 % Eosinophils (%) (Auto) 0.1 % Basophils (%) (Auto) 0.2 % Neutrophils # (Auto) 8.0 TH/MM3 Lymphocytes # (Auto) 0.7 TH/MM3 Monocytes # (Auto) 0.2 TH/MM3 Eosinophils # (Auto) 0.0 TH/MM3 Basophils # (Auto) 0.0 TH/MM3 CBC Comment AUTO DIFF Differential Comment AUTO DIFF CONFIRMED Prothrombin Time 10.3 SEC Prothromb Time International Ratio 1.0 RATIO Activated Partial Thromboplast Time 21.5 SEC Blood Urea Nitrogen 9 MG/DL Creatinine 0.54 MG/DL Random Glucose 285 MG/DL Total Protein 6.3 GM/DL Albumin 3.9 GM/DL Calcium Level 9.0 MG/DL Alkaline Phosphatase 61 U/L Aspartate Amino Transf (AST/SGOT) 97 U/L Alanine Aminotransferase (ALT/SGPT) 51 U/L Total Bilirubin 0.8 MG/DL Sodium Level 142 MEQ/L Potassium Level 3.7 MEQ/L Chloride Level 112 MEQ/L Carbon Dioxide Level 19.3 MEQ/L Anion Gap 11 MEQ/L Estimat Glomerular Filtration Rate 115 ML/MIN Triglycerides Level 373 MG/DL Administered Medications Medications (Trade) Dose Ordered Sig/Katalina Route PRN Reason Start Time Stop Time Status Last Admin Dose Admin Insulin Aspart (NovoLOG SUPPLEMENTAL SCALE) 1 ACHS SLIDING SCALE SQ 03/06/18 08:00 03/10/18 09:16 Sodium Chloride (NS Flush) 2 ml BID IV FLUSH 03/06/18 09:00 03/10/18 09:16 Ondansetron HCl (Zofran Inj) 4 mg Q6H PRN IVP NAUSEA OR VOMITING 03/06/18 00:00 03/06/18 15:34 Hydromorphone HCl (Dilaudid Pf Inj) 1 mg Q3H PRN IV PAIN SCALE 6 TO 10 03/06/18 00:15 03/06/18 16:38 Senna/Docusate Sodium (Tayler-Colace) 1 tab BID PO 03/06/18 09:00 03/09/18 08:14 Alprazolam (Xanax) 0.5 mg Q4H PRN PO ANXIETY 03/06/18 00:00 03/06/18 02:21 Atorvastatin Calcium (Lipitor) 20 mg HS PO 03/06/18 21:00 03/09/18 20:42 Metoprolol Succinate (Toprol Xl) 25 mg DAILY PO 03/06/18 09:00 03/10/18 09:16 Fenofibrate (Tricor) 145 mg DAILY PO 03/06/18 09:00 03/10/18 09:16 Trazodone HCl (Desyrel) 100 mg HS PO 03/06/18 21:00 03/09/18 20:42 Pantoprazole Sodium (Protonix) 40 mg Q12HR PO 03/06/18 09:00 03/10/18 09:16 Ceftriaxone Sodium 1000 mg/ Sodium Chloride 100 ml @ 200 mls/hr Q24H IV 03/06/18 00:00 03/10/18 01:31 Gabapentin (Neurontin) 100 mg HS PO 03/06/18 21:00 03/09/18 20:43 Metoclopramide HCl (Reglan Inj) 10 mg Q8H PRN IV PUSH NAUSEA/VOMITING 03/06/18 01:30 03/06/18 02:21 Aspirin (Ecotrin Ec) 81 mg DAILY PO 03/06/18 09:00 03/10/18 09:17 Calcium Carbonate (Oscal) 500 mg Q12HR PO 03/06/18 21:00 03/10/18 20:59 03/10/18 09:16 Chlorhexidine Gluconate (Chlorhexidine 2% Cloth) 3 pack DAILY@04 TOPICAL 03/07/18 04:00 03/11/18 04:01 03/09/18 04:00 Albumin Human 3,500 ml @ 250 mls/hr Q24H IV 03/06/18 22:00 03/11/18 11:59 03/09/18 22:00 Methylprednisolone Sodium Succinate (SoluMEDROL INJ) 125 mg Q24H IV PUSH 03/06/18 22:00 03/10/18 22:01 03/09/18 20:43 Famotidine (Pepcid Inj) 20 mg Q24H IV PUSH 03/06/18 22:00 03/10/18 22:01 03/09/18 20:44 Diphenhydramine HCl (Benadryl Inj) 25 mg UNSCH PRN IV PUSH SEE LABEL COMMENTS 03/06/18 21:30 03/12/18 21:29 03/07/18 01:42 Calcium Gluconate 3.5 gm/Sodium Chloride 285 ml @ 95 mls/hr Q24H IV 03/06/18 22:00 03/11/18 21:59 03/09/18 22:00 Anticoagulant Citrate Dextose Camryn A (Acd Formula Inj) 1,000 ml Q24H OTHER 03/06/18 22:00 03/11/18 21:59 03/07/18 01:44 Potassium Chloride 100 ml @ 50 mls/hr UNSCH PRN IV ELECTROLYTE REPLACEMENT 03/08/18 15:00 03/09/18 03:25 Hydralazine HCl (Apresoline Inj) 20 mg Q4H PRN IV PUSH SBP>160, DBP>90 03/08/18 20:45 03/09/18 04:52 Albuterol/ Ipratropium (Duoneb Neb) 1 ampule Q4HR NEB NEB 03/09/18 00:00 03/10/18 09:22 Objective Remarks GENERAL: middle aged female, upright in bed SKIN: Warm and dry. vas-cath right neck, no bleeding. HEAD: Normocephalic. EYES: No injection or drainage. NECK: Supple, trachea midline. CARDIOVASCULAR: Regular rate and rhythm RESPIRATORY: Breath sounds equal bilaterally. No accessory muscle use. GASTROINTESTINAL: Abdomen soft, epigastrium ttp, nondistended. EXTREMITIES: No cyanosis. NEUROLOGICAL: awake and alert. normal speech. no obvious focal deficit. Assessment/Plan Problem List: (1) Pancreatitis ICD Codes: K85.90 - Acute pancreatitis without necrosis or infection, unspecified Plan: --Due to hypertriglyceridemia --Hematology following for pheresis Assessment 62-year-old female admitted with pancreatitis; hematology consulted for management of pheresis Plan 1. triglycerides remain less than 500. will write order to remove vas-cath 2. hematology will sign off. please call or reconsult if needed. Attending Statement The exam, history, and the medical decision-making described in the above note were completed with the assistance of the mid-level provider. I reviewed and agree with the findings presented. I attest that I had a [id number] encounter with the patient on the same day, and personally performed and documented my assessment and findings in the medical record. No complaints, ambulating well, more comfortable w/o vascath. Pancreatitis symptoms improving. Goal achieved with plasmapheresis, tryglycerides <500 x 2 days. Continue to fu w/ GI. Discussed her vaginal bleeding, followed by FLAT SORTING MACHINE CLERK as out pt, state that she has not yet gone through the changes She is already 62 y/o, state that she has had an exam and biopsy before admission to r/o malignancy. Defer to her FLAT SORTING MACHINE CLERK, anemia unlikely due to scant vaginal bleed, advised that this will need further workup and is not normal. We will sign off, reconsult as needed. Christine Solano Mar 10, 2018 12:51 Melva Campos MD Mar 10, 2018 18:28
--- NOTE | 2018-03-10 13:10 | HHI.GIFU ---
Subjective Remarks Pt resting in bed No GI complaints at this time States she would like to eat Tolerating full liquid diet (Gemini Borja) Objective Vitals I&O Vital Signs Date Time Temp Pulse Resp B/P (MAP) Pulse Ox O2 Delivery O2 Flow Rate FiO2 03/10/18 11:35 97.8 101 20 167/79 (108) 96 03/10/18 09:25 94 21 03/10/18 08:00 Nasal Cannula 3.00 03/10/18 07:50 97 03/10/18 07:45 98.3 94 18 172/74 (106) 95 03/10/18 04:45 97 Nasal Cannula 3.00 03/10/18 04:04 99.0 108 14 155/73 (100) 94 03/10/18 04:04 94 Nasal Cannula 3.00 03/10/18 04:00 100 03/10/18 00:55 104 03/10/18 00:46 98 Nasal Cannula 3.00 03/10/18 00:00 97 Nasal Cannula 4.00 03/10/18 00:00 98.4 104 16 155/70 (98) 96 03/09/18 20:03 100 Nasal Cannula 3.00 03/09/18 20:00 97 Nasal Cannula 4.00 03/09/18 20:00 100 03/09/18 20:00 97.6 100 20 156/73 (100) 99 03/09/18 18:00 103 03/09/18 16:00 97.9 116 27 146/66 (92) 97 03/09/18 16:00 116 03/09/18 14:00 109 I/O 03/09/18 03/09/18 03/09/18 03/10/18 03/10/18 03/10/18 07:00 15:00 23:00 07:00 15:00 23:00 Intake Total 520 ml 500 ml 240 ml Output Total 800 ml 1350 ml 1600 ml Balance -280 ml -850 ml -1360 ml Intake Oral 420 ml 500 ml 240 ml IV Total 100 ml Output Urine Total 800 ml 1350 ml 1600 ml # Voids 2 4 # Bowel Movements 2 1 0 Laboratory Laboratory Tests Test 03/10/18 04:55 White Blood Count 9.0 Red Blood Count 3.26 Hemoglobin 8.4 Hematocrit 24.8 Mean Corpuscular Volume 76.2 Mean Corpuscular Hemoglobin 25.8 Mean Corpuscular Hemoglobin Concent 33.8 Red Cell Distribution Width 15.8 Platelet Count 195 Mean Platelet Volume 8.0 Neutrophils (%) (Auto) 89.3 Lymphocytes (%) (Auto) 7.8 Monocytes (%) (Auto) 2.6 Eosinophils (%) (Auto) 0.1 Basophils (%) (Auto) 0.2 Neutrophils # (Auto) 8.0 Lymphocytes # (Auto) 0.7 Monocytes # (Auto) 0.2 Eosinophils # (Auto) 0.0 Basophils # (Auto) 0.0 CBC Comment AUTO DIFF Differential Comment AUTO DIFF CONFIRMED Prothrombin Time 10.3 Prothromb Time International Ratio 1.0 Activated Partial Thromboplast Time 21.5 Blood Urea Nitrogen 9 Creatinine 0.54 Random Glucose 285 Total Protein 6.3 Albumin 3.9 Calcium Level 9.0 Alkaline Phosphatase 61 Aspartate Amino Transf (AST/SGOT) 97 Alanine Aminotransferase (ALT/SGPT) 51 Total Bilirubin 0.8 Sodium Level 142 Potassium Level 3.7 Chloride Level 112 Carbon Dioxide Level 19.3 Anion Gap 11 Estimat Glomerular Filtration Rate 115 Triglycerides Level 373 Imaging Last Impressions Chest X-Ray 03/09/18 0000 Signed Impressions: Service Date/Time: Friday, March 09, 2018 19:25 - CONCLUSION: Mild hazy opacity remains in both lungs and could represent mild pulmonary edema. Myke Sierra MD Abdomen/Pelvis CT 03/05/18 1700 Signed Impressions: Service Date/Time: Monday, March 05, 2018 22:28 - CONCLUSION: 1. Moderate severity peripancreatic edema indicating acute pancreatitis in the proper clinical setting. No organized drainable fluid collections identified. 2. Nonobstructing right renal calculus unchanged. 3. Colonic diverticulosis with no evidence of acute diverticulitis. 4. Fibroid uterus. Juan White MD CT Angiography 03/05/18 0000 Signed Impressions: Service Date/Time: Monday, March 05, 2018 22:28 - CONCLUSION: Peribronchial thickening with moderate bibasilar parenchymal changes suggesting chronic bronchitis. Negative for central pulmonary emboli. Valentin Uriarte MD FACR Physical Exam HEENT: Normocephalic; atraumatic CHEST: Even/unlabored CARDIAC: RRR ABDOMEN: Distended, soft, nontender, bowel sounds active SKIN: Normal; no rash; no jaundice. WASTEWATER DESIGN ENGINEER: No focal deficits; alert and oriented times three. (Gemini Borja [facility]) Assessment and Plan Plan - Acute pancreatitis (first episode)- likely Triglycerides induced. CT Abdomen /Pelvis moderate severity peripancreatic edema indicating acute pancreatitis, no drainable fluid, nonobstructing right renal calculus. Pt is s/p Cholecystectomy. labs revealed high lipase, worsening today 934 ---> 1556, elevated LFTs, high triglycerides of 6339, cholesterol 359. Pt is on Atorvastatin and Fenofibrate at home. States she has hx of high triglycerides but never this high. Pt denies previous hx of pancreatitis, no family hx of this. Pt not a heavy or daily drinker, no new meds, doesn't take NSAIDs on regular basis - Leukocytosis- secondary to above, afebrile on Rocephin - High triglycerides of 6339, cholesterol 359. Per attending - DM per attending (03/08) Pt denies any continued abdominal pain, nausea, vomiting. Tolerating clear liquid diet. Pancreatitis likely secondary to hypertriglyceridemia. Elías score- 5. S/P Vascath placement- planned for plasmapheresis today. Per hematology note, continue pheresis until triglycerides less than or equal to 500. Lipase now WNL. Triglycerides 1,193 Hypocalcemia- improving, currently 7.1 Anemia- secondary to IVF, dilutional Leukocytosis- improving, afebrile. Rocephin (03/09) Pt appears uncomfortable today, but states it is just from back pain and being in the bed too long. Denies nausea, vomiting, abdominal pain. Tolerating clear liquids. S/P plasmapheresis yesterday, triglycerides now 364. Calcium continues to improve, currently 7.7. H/H dropped some last night but remains stable, likely secondary to menstrual bleeding. Evaluated by Human Resources Vice President who is planning on transvaginal US and noted they prefer outpt follow up if stable IVF were discontinued by attending due to pulmonary congestion. (03/10) Pt with no GI complaints at this time. States she would like to eat. Tolerating full liquid diet. Some drop in H/H noted, likely secondary to vaginal bleeding. Hypocalcemia resolved. Triglycerides now 373, hematology has ordered vas cath to be removed and signed off. Offered pt EGD/colonoscopy to be done tomorrow to further evaluate anemia- she is declining GI procedures. States she will follow up with her doctor at [facility] outpatient after DC. Last EGD and colonoscopy were approx 3 years ago and reports normal findings. Plan: - Advance to regular diet - Control of BGL - Triglyceride management per attending - Advised to avoid ETOH - If pt tolerating PO, OK to DC from a GI standpoint - Have pt follow up with GI after DC Pt has been seen and examined by myself and Dr. Delatorre and this note is written on his behalf (Gemini Borja) Plan Patient was seen and examined, agree with above-noted, we will advance diet as tolerated to low fat diet, we'll monitor lab, treatment for hypertriglyceridemia per primary team patient also has anemia, unclear etiology , she may benefit from upper endoscopy and colonoscopy, I'll discuss with the patient if she is okay with that we'll plan on doing it tomorrow (Melina Delatorre MD) Gemini Borja Mar 10, 2018 13:10 Melina Delatorre MD Mar 10, 2018 14:01
[2018-03-10] MEDS ORDERED: NOVOLOGSS SQ (14:12)
[2018-03-10] MEDS ORDERED: ECASA81 PO (14:12)
[2018-03-10] MEDS ORDERED: PANT40TA3 PO (14:12)
[2018-03-10] MEDS ORDERED: ATOR20TA15 PO (14:12)
[2018-03-10] MEDS ORDERED: GEMF600T PO (14:12)
[2018-03-10] MEDS ORDERED: LEVEMIR SQ (14:12)
--- NOTE | 2018-03-10 14:26 | HHI.PR ---
Subjective Remarks Patient doing much better today she is off the oxygen, Triglycerides in the 300, GI and hematology signed off Lungs Rales much better today patient urinate okay Discussed with her changing lifestyle, will need to add gemfibrozil Objective Vitals Vital Signs Date Time Temp Pulse Resp B/P (MAP) Pulse Ox O2 Delivery O2 Flow Rate FiO2 03/10/18 11:35 97.8 101 20 167/79 (108) 96 03/10/18 09:25 94 21 03/10/18 08:00 Nasal Cannula 3.00 03/10/18 07:50 97 03/10/18 07:45 98.3 94 18 172/74 (106) 95 03/10/18 04:45 97 Nasal Cannula 3.00 03/10/18 04:04 99.0 108 14 155/73 (100) 94 03/10/18 04:04 94 Nasal Cannula 3.00 03/10/18 04:00 100 03/10/18 00:55 104 03/10/18 00:46 98 Nasal Cannula 3.00 03/10/18 00:00 97 Nasal Cannula 4.00 03/10/18 00:00 98.4 104 16 155/70 (98) 96 03/09/18 20:03 100 Nasal Cannula 3.00 03/09/18 20:00 97 Nasal Cannula 4.00 03/09/18 20:00 100 03/09/18 20:00 97.6 100 20 156/73 (100) 99 03/09/18 18:00 103 03/09/18 16:00 97.9 116 27 146/66 (92) 97 03/09/18 16:00 116 I/O 03/09/18 03/09/18 03/09/18 03/10/18 03/10/18 03/10/18 07:00 15:00 23:00 07:00 15:00 23:00 Intake Total 520 ml 500 ml 240 ml Output Total 800 ml 1350 ml 1600 ml Balance -280 ml -850 ml -1360 ml Intake Oral 420 ml 500 ml 240 ml IV Total 100 ml Output Urine Total 800 ml 1350 ml 1600 ml # Voids 2 4 # Bowel Movements 2 1 0 Result Diagram: 03/10/18 0455 03/10/18 045 Objective Remarks GENERAL: This is a well-nourished, well-developed patient, in no apparent distress. SKIN: No rashes, warm and dry HEAD: Atraumatic. Normocephalic. EYES: Pupils equal round and reactive. Extraocular motions intact. No scleral icterus. ENT: Nose without bleeding, or drainage, Airway patent. NECK: Trachea midline. Supple CARDIOVASCULAR: Regular rate and rhythm without murmurs, gallops, or rubs. RESPIRATORY: Fair air entry bilaterally. No rales GASTROINTESTINAL: Abdomen soft, no tenderness, no rebound or guarding, nondistended. Positive bowel sounds MUSCULOSKELETAL: Extremities without clubbing, cyanosis, or edema. Pedal pulses appreciated NEUROLOGICAL: Awake and alert. Moves all extremity. Normal speech.no focal neurological deficit A/P Problem List: (1) SIRS (systemic inflammatory response syndrome) ICD Code: R65.10 - Systemic inflammatory response syndrome (SIRS) of non- infectious origin without acute organ dysfunction (2) Pancreatitis ICD Code: K85.90 - Acute pancreatitis without necrosis or infection, unspecified (3) Chest pain ICD Code: R07.9 - Chest pain, unspecified (4) Hypocalcemia ICD Code: E83.51 - Hypocalcemia (5) Dehydration ICD Code: E86.0 - Dehydration (6) DM (diabetes mellitus) ICD Code: E11.9 - Type 2 diabetes mellitus without complications Assessment and Plan -Severe acute pancreatitis with lipase trending up -Severe hypertriglyceridemia and hypercholesterolemia -Anion gap metabolic acidosis -Severe hypocalcemia and dehydration -Diabetes mellitus Plan: Consult GI appreciate input, discussed today with , consulted hematology, started on plasmapheresis today with improvement of the PT level and symptoms CT abdomen personally reviewed by me Continue close BMP and electrolyte monitoring and replacement as needed Monitor CMP Accu-Chek with insulin sliding scale hold glipizide keep patient n.p.o. Generous IV fluid to 250 cc will be stopped due to pulmonary congestion Monitor anion gap which is 18 03/08: Clinically much improved, started on liquid diet, will DC IV fluids discussed with GI due to pulmonary congestion, encourage fluid oral intake, monitor JARVIS, repeat CMP, CBC in a.m. with lipase, plan for plasmapheresis today 03/09: Patient had shortness of breath, placed on the BiPAP overnight, I will do x-ray to assess for pulmonary edema, patient has been urinating okay 4 L over the last shift, will transfer to Medr floor. DRAFTER REFRIGERATION has been consulted for vaginal bleeding, they recommended transvaginal ultrasound which patient refused at this point, she will need to do it as a outpatient 03/10: Patient coming along very well, TG in the level of 300, breathing is better, cleared by hematology and GI, Vas-Cath ordered to be removed Addendum: I received a call from the nurse around 6 PM patient failed O2 walking test, therefore I will hold the discharge will give her a dose of Lasix IV repeat BMP BMP in a.m. repeat home O2 walking past if she passed patient can be discharge in a.m. Surinder Conner MD Mar 10, 2018 14:26
--- NOTE | 2018-03-10 14:32 | HHI.DS ---
Discharge Summary Admission Date Mar 06, 2018 at 01:26 Discharge Date: Mar 11, 2018 Admitting Diagnosis Acute pancreatitis (1) SIRS (systemic inflammatory response syndrome) ICD Code: R65.10 - Systemic inflammatory response syndrome (SIRS) of non- infectious origin without acute organ dysfunction (2) Pancreatitis ICD Code: K85.90 - Acute pancreatitis without necrosis or infection, unspecified (3) Chest pain ICD Code: R07.9 - Chest pain, unspecified (4) Hypocalcemia ICD Code: E83.51 - Hypocalcemia (5) Dehydration ICD Code: E86.0 - Dehydration (6) DM (diabetes mellitus) ICD Code: E11.9 - Type 2 diabetes mellitus without complications Procedures Plasmaphoresis Brief History - From Admission This is a 62-year-old female with a PMH of Depression, HTN, Hyperlipidemia and DM who presents the ER with complaints of chest pain and epigastric pain starting earlier this morning. States the pain is intermittent, burning, moderate-severe, 8/10, w/ radiation to back. Denies fever, chills, SOB or cough. +nausea, no vomiting. On arrival, BP 156/77, HR 123, O2 sat 97% RA, Afebrile. WBC 15.2, elevated neutrophil count. ABG 18, GFR 84, Calcium 7.3. Troponin negative. BNP 934. INR 0.9. UA with small LE, bacteriuria. CXR with linear atelectasis lower lateral lung. CTA Pulm with peribronchial thickening with moderate bibasilar parenchymal changes suggesting chronic bronchitis, no PE. CT Abdomen/Pelvis moderate severity peripancreatic edema indicating acute pancreatitis, no drainable fluid, nonobstructing right renal calculus. S/p multiple doses of Morphine and Zofran in ER w/ minimal relief, s/ p Dilaudid w/ some improvement. CBC/BMP: 03/10/18 0455 03/10/18 0455 Significant Findings Laboratory Tests Test 03/07/18 17:50 03/08/18 06:55 03/08/18 21:23 03/09/18 04:50 Blood Gas HCO3 18 mmol/L (22-26) Blood Gas Base Excess -5.9 mmol/L (-2-2) Arterial Blood Partial Pressure CO2 32 mmHg (38-42) Arterial Blood Methemoglobin 3.1 % (0-2) Blood Gas Hemoglobin 9.3 G/DL (12.0-16.0) White Blood Count 11.2 TH/MM3 (4.0-11.0) 13.8 TH/MM3 (4.0-11.0) Red Blood Count 3.58 MIL/MM3 (4.00-5.30) 3.49 MIL/MM3 (4.00-5.30) Hemoglobin 9.4 GM/DL (11.6-15.3) 8.4 GM/DL (11.6-15.3) 9.0 GM/DL (11.6-15.3) Hematocrit 28.1 % (35.0-46.0) 25.1 % (35.0-46.0) 26.8 % (35.0-46.0) Mean Corpuscular Volume 78.4 FL (80.0-100.0) 76.8 FL (80.0-100.0) Mean Corpuscular Hemoglobin 26.3 PG (27.0-34.0) 25.8 PG (27.0-34.0) Neutrophils (%) (Auto) 86.2 % (16.0-70.0) 92.0 % (16.0-70.0) Lymphocytes (%) (Auto) 8.2 % (9.0-44.0) 4.8 % (9.0-44.0) Neutrophils # (Auto) 9.7 TH/MM3 (1.8-7.7) 12.7 TH/MM3 (1.8-7.7) Lymphocytes # (Auto) 0.9 TH/MM3 (1.0-4.8) 0.7 TH/MM3 (1.0-4.8) Prothrombin Time 9.7 SEC (9.8-11.6) Activated Partial Thromboplast Time 21.0 SEC (24.3-30.1) Fibrinogen 436 mg/dL (227-377) Creatinine 0.49 MG/DL (0.50-1.00) Random Glucose 205 MG/DL (74-106) Total Protein 5.7 GM/DL (6.4-8.2) Albumin 3.0 GM/DL (3.4-5.0) Calcium Level 7.1 MG/DL (8.5-10.1) Potassium Level 3.2 MEQ/L (3.5-5.1) Chloride Level 110 MEQ/L (98-107) Protein Corrected Calcium 7.8 MG/DL (8.5-10.1) Triglycerides Level 1193 MG/DL (42-150) Test 03/09/18 04:56 03/10/18 04:55 Creatinine 0.44 MG/DL (0.50-1.00) Random Glucose 225 MG/DL (74-106) 285 MG/DL (74-106) Total Protein 6.0 GM/DL (6.4-8.2) 6.3 GM/DL (6.4-8.2) Calcium Level 7.7 MG/DL (8.5-10.1) Alkaline Phosphatase 40 U/L (45-117) Chloride Level 111 MEQ/L (98-107) 112 MEQ/L (98-107) Carbon Dioxide Level 17.3 MEQ/L (21.0-32.0) 19.3 MEQ/L (21.0-32.0) Triglycerides Level 364 MG/DL (42-150) 373 MG/DL (42-150) Red Blood Count 3.26 MIL/MM3 (4.00-5.30) Hemoglobin 8.4 GM/DL (11.6-15.3) Hematocrit 24.8 % (35.0-46.0) Mean Corpuscular Volume 76.2 FL (80.0-100.0) Mean Corpuscular Hemoglobin 25.8 PG (27.0-34.0) Neutrophils (%) (Auto) 89.3 % (16.0-70.0) Lymphocytes (%) (Auto) 7.8 % (9.0-44.0) Neutrophils # (Auto) 8.0 TH/MM3 (1.8-7.7) Lymphocytes # (Auto) 0.7 TH/MM3 (1.0-4.8) Activated Partial Thromboplast Time 21.5 SEC (24.3-30.1) Aspartate Amino Transf (AST/SGOT) 97 U/L (15-37) PE at Discharge GENERAL: This is a well-nourished, well-developed patient, in no apparent distress. SKIN: No rashes, warm and dry HEAD: Atraumatic. Normocephalic. EYES: Pupils equal round and reactive. Extraocular motions intact. No scleral icterus. ENT: Nose without bleeding, or drainage, Airway patent. NECK: Trachea midline. Supple CARDIOVASCULAR: Regular rate and rhythm without murmurs, gallops, or rubs. RESPIRATORY: Fair air entry bilaterally. No rales GASTROINTESTINAL: Abdomen soft, no tenderness, no rebound or guarding, nondistended. Positive bowel sounds MUSCULOSKELETAL: Extremities without clubbing, cyanosis, or edema. Pedal pulses appreciated NEUROLOGICAL: Awake and alert. Moves all extremity. Normal speech.no focal neurological deficit Hospital Course 62 years old female admitted with severe acute pancreatitis due to severe hypertriglyceridemia in the level of 6000, anion gap metabolic acidosis severe hypercalcemia dehydration and electrolyte imbalance she has a diabetes mellitus , patient started on pancreatitis treatment n.p.o., generous IV fluid, treatment n.p.o., generous IV fluid, pain management, GI consulted as well as hematology patient started on plasmapheresis with trending off TG, DERMATOLOGY PHYSICIAN ASSISTANT consulted for vaginal bleed recommended ultrasound transvaginal which patient refused,. Patient A1c was 8.2, placed on insulin since it will help with hypertriglyceridemia management, placed patient on fenofibrate 600 mg twice daily, will avoid niacin since it is less recommended with diabetic patient, discussed with the patient and educated about the importance of changing lifestyle avoiding fatty food in her diet avoiding alcohol. I also placed a referral for the patient to see housing inspector Dr. Flores as an outpatient for further hypertriglyceridemia and diabetes management Kavp-is-[id number] encounter performed with the patient on discharge day, as well as physical exam, summary of hospitalization course and postdischarge plan has been D/W the patient. D/W nurse D/W case management coordinator. Discharge medications reviewed and printed and signed, post discharge follow up visit with PCP and other specialist as well as Brief hospital course and discharge summary has been placed. Pt Condition on Discharge: Fair Discharge Disposition: Discharge Home Discharge Time: > 30 minutes Discharge Instructions DIET: Follow Instructions for: Heart Healthy Diet, Low Fat Diet Additional Diet Instructions: AVOID FATTY , JUNK FOOD AVOID ALCHOL Activities you can perform: Weight Bearing as Joel Follow up Referrals: Endocrinology - 1 Week with Aj Blair MD Gastroenterology - 1 Week with Melina Delatorre MD New Medications: Gemfibrozil (Gemfibrozil) 600 Mg Tab 600 MG PO BIDAC for hyperTG, #60 TAB 0 Refills Take 30 minutes prior to breakfast and dinner. Insulin Detemir Inj (Levemir Inj) 1,000 unit/ 10 ML Vial 7 UNITS SQ BID for Blood Sugar Management for 30 Days, VIAL 0 Refills Do not mix with any other Insulin. Aspirin DR (Aspirin DR) 81 Mg Tabdr 81 MG PO DAILY for PROPH, #30 TAB Atorvastatin (Atorvastatin) 20 Mg Tab 40 MG PO HS for dislepidemia /high tg, #30 TAB Insulin Aspart Inj (Novolog Inj) 100 Unit/Ml Inj 1 UNIT SQ ACHS SLIDING SCALE for DM for 30 Days, INJECTION Pantoprazole (Pantoprazole) 40 Mg Tab 40 MG PO Q12HR for GI, #60 TAB Continued Medications: Dicyclomine (Bentyl) 10 Mg Cap 10 MG PO TID PRN for Bowel Management, CAP 0 Refills Gabapentin (Gabapentin) 300 Mg Cap 120 MG PO HS, #60 CAP 0 Refills Glipizide (Glipizide) 5 Mg Tab 2.5 MG PO BIDAC for Blood Sugar Management, #60 TAB 0 Refills Take 30 minutes before a meal Losartan (Losartan) 50 Mg Tab 50 MG PO DAILY for Blood Pressure Management, #30 TAB 0 Refills Metoprolol Succinate ER 24 HR (Metoprolol Succinate ER 24 HR) 25 Mg Tab 25 MG PO DAILY, #30 TAB 0 Refills Trazodone (Trazodone) 100 Mg Tablet 100 MG PO HS for Control Depression, #30 TAB 0 Refills Discontinued Medications: Atorvastatin (Atorvastatin) 20 Mg Tab 20 MG PO HS for Cholesterol Management, #30 TAB 0 Refills Surinder Conner MD Mar 10, 2018 14:32
[2018-03-10] MEDS: hydrALAZINE HCL 20 MG/ML VIAL IV PUSH PRN (17:21)
--- NOTE | 2018-03-10 17:35 | RADRPT ---
EXAM DATE/TIME: 03/10/2018 00:00 [place] COMPARISON: No previous studies available for comparison. INDICATIONS : Removal of temporary dialysis catheter. MEDICAL HISTORY : SURGICAL HISTORY : ENCOUNTER: Initial ACUITY: 1 day PAIN SCORE: 0/10 Right chest area IMAGE SERIES: 0 PROCEDURE : 1. Temporary central venous catheter removal. The prescribed catheter was removed intact and hemostasis was achieved with direct pressure. The sit e was dressed appropriately. The patient tolerated the procedure well. CONCLUSION: Uncomplicated catheter removal. Prabhakar Coles MD on March 10, 2018 at 17:32 Board Certified Radiologist. This report was verified electronically.
[2018-03-10] MEDS ORDERED: FUROSEMIDE 20 MG/2 ML VIAL IV PUSH ONE (18:30)
[2018-03-10] MEDS: GABAPENTIN 100 MG CAP PO SCH (21:59)
[2018-03-10] MEDS: ATORVASTATIN 20 MG TAB PO SCH (21:59)
[2018-03-10] MEDS: ALBUMIN 5% INJ 3,500 ML IV SCH (22:00)
[2018-03-10] MEDS: traZODone HCL 100 MG TAB PO SCH (22:00)
[2018-03-10] MEDS: FAMOTIDINE 20 MG/2 ML VIAL IV PUSH SCH (22:00)
[2018-03-10] MEDS: ANTICOAGULANT CITRATE DEXTROSE SOLN-A 1L OTHER SCH (22:00)
[2018-03-10] MEDS: methylPREDNISolone SOD SUCC 125 MG/2 ML VIAL IV PUSH SCH (22:03)
[2018-03-10] MEDS: SODIUM CHLOR 0.9% IV SCH (23:20)
[2018-03-10] MEDS: CALCIUM GLUCONATE IV SCH (23:20)
[2018-03-11] VITALS (7 sets, daily range): BP systolic 152–171; BP diastolic 69–82; PULSE 90–117; RESP 18–20; TEMP 97.3–98.1; O2SAT 92–96
[2018-03-11] MEDS: RESP: ALBUTEROL 2.5 MG/IPRATROPIUM 0.5 MG NEB (SCH) NEB ×3 (02:37→11:44)
[2018-03-11] MEDS: CHLORHEXIDINE GLUCONATE 2 % 1 PACK (2 CLOTHS)(taper/protocol) TOPICAL SCH (03:37)
[2018-03-11] MEDS: DOCUSATE SODIUM 50 MG/SENNA 8.6 MG TAB PO SCH (09:00)
[2018-03-11] MEDS: FENOFIBRATE 145 MG TAB PO SCH (09:17)
[2018-03-11] MEDS: ASPIRIN EC 81 MG TABEC PO SCH (09:17)
[2018-03-11] MEDS: METOPROLOL SUCCINATE 25 MG EXTENDED RELEASE TAB PO SCH (09:17)
[2018-03-11] MEDS: PANTOPRAZOLE SOD 40 MG DELAYED RELEASE TAB PO SCH (09:18)
[2018-03-11] MEDS: SODIUM CHLORIDE 0.9% FLUSH 10 ML FLUSH IV FLUSH SCH (09:18)
[2018-03-11] MEDS: INSULIN ASPART SUPPLEMENTAL SCALE SQ SCH ×2 (09:19→12:00)
--- NOTE | 2018-03-11 12:54 | HHI.GIFU ---
Subjective Remarks Pt resting in bed No complaints at this time Anxious to be going home (Gemini Borja) Objective Vitals I&O Vital Signs Date Time Temp Pulse Resp B/P (MAP) Pulse Ox O2 Delivery O2 Flow Rate FiO2 03/11/18 12:05 98.1 100 18 152/69 (96) 95 03/11/18 08:00 90 03/11/18 07:56 93 Nasal Cannula 2.00 03/11/18 07:25 97.7 94 18 171/76 (107) 96 03/11/18 03:54 98 03/11/18 02:10 97.3 117 20 152/82 (105) 92 03/11/18 00:00 Nasal Cannula 4.00 03/10/18 23:49 100 03/10/18 21:09 94 Nasal Cannula 3.00 03/10/18 20:03 Nasal Cannula 4.00 03/10/18 20:00 115 03/10/18 19:28 97.8 107 20 169/75 (106) 97 03/10/18 17:16 163/73 (103) 03/10/18 16:26 2.00 03/10/18 16:20 97.8 103 20 192/81 (118) 94 03/10/18 16:00 Nasal Cannula 3.00 03/10/18 15:50 96 I/O 03/10/18 03/10/18 03/10/18 03/11/18 03/11/18 03/11/18 07:00 15:00 23:00 07:00 15:00 23:00 Intake Total 240 ml 940 ml 765 ml Output Total 1600 ml 650 ml Balance -1360 ml 940 ml 115 ml Intake Oral 240 ml 840 ml 480 ml IV Total 100 ml 285 ml Output Urine Total 1600 ml 650 ml # Voids 6 # Bowel Movements 0 1 0 Imaging Last Impressions Central Venous Line 03/10/18 0000 Signed Impressions: Service Date/Time: Saturday, March 10, 2018 00:00 - CONCLUSION: Uncomplicated catheter removal. Prabhakar Coles MD Chest X-Ray 03/09/18 0000 Signed Impressions: Service Date/Time: Friday, March 09, 2018 19:25 - CONCLUSION: Mild hazy opacity remains in both lungs and could represent mild pulmonary edema. Myke Sierra MD Abdomen/Pelvis CT 03/05/18 1700 Signed Impressions: Service Date/Time: Monday, March 05, 2018 22:28 - CONCLUSION: 1. Moderate severity peripancreatic edema indicating acute pancreatitis in the proper clinical setting. No organized drainable fluid collections identified. 2. Nonobstructing right renal calculus unchanged. 3. Colonic diverticulosis with no evidence of acute diverticulitis. 4. Fibroid uterus. Juan White MD CT Angiography 03/05/18 0000 Signed Impressions: Service Date/Time: Monday, March 05, 2018 22:28 - CONCLUSION: Peribronchial thickening with moderate bibasilar parenchymal changes suggesting chronic bronchitis. Negative for central pulmonary emboli. Valentin Uriarte MD FACR Physical Exam HEENT: Normocephalic; atraumatic CHEST: Even/unlabored CARDIAC: RRR ABDOMEN: Round, soft, nontender, bowel sounds active SKIN: Normal; no rash; no jaundice. TRUCK SWITCHER: No focal deficits; alert and oriented times three. (Gemini Borja [facility]) Assessment and Plan Plan - Acute pancreatitis (first episode)- likely Triglycerides induced. CT Abdomen/Pelvis moderate severity peripancreatic edema indicating acute pancreatitis, no drainable fluid, nonobstructing right renal calculus. Pt is s/p Cholecystectomy. labs revealed high lipase, worsening today 934 ---> 1556, elevated LFTs, high triglycerides of 6339, cholesterol 359. Pt is on Atorvastatin and Fenofibrate at home. States she has hx of high triglycerides but never this high. Pt denies previous hx of pancreatitis, no family hx of this. Pt not a heavy or daily drinker, no new meds, doesn't take NSAIDs on regular basis - Leukocytosis- secondary to above, afebrile on Rocephin - High triglycerides of 6339, cholesterol 359. Per attending - DM per attending (03/08) Pt denies any continued abdominal pain, nausea, vomiting. Tolerating clear liquid diet. Pancreatitis likely secondary to hypertriglyceridemia. Elías score- 5. S/P Vascath placement- planned for plasmapheresis today. Per hematology note, continue pheresis until triglycerides less than or equal to 500. Lipase now WNL. Triglycerides 1,193 Hypocalcemia- improving, currently 7.1 Anemia- secondary to IVF, dilutional Leukocytosis- improving, afebrile. Rocephin (03/09) Pt appears uncomfortable today, but states it is just from back pain and being in the bed too long. Denies nausea, vomiting, abdominal pain. Tolerating clear liquids. S/P plasmapheresis yesterday, triglycerides now 364. Calcium continues to improve, currently 7.7. H/H dropped some last night but remains stable, likely secondary to menstrual bleeding. Evaluated by Information Systems Analyst who is planning on transvaginal US and noted they prefer outpt follow up if stable IVF were discontinued by attending due to pulmonary congestion. (03/10) Pt with no GI complaints at this time. States she would like to eat. Tolerating full liquid diet. Some drop in H/H noted, likely secondary to vaginal bleeding. Hypocalcemia resolved. Triglycerides now 373, hematology has ordered vas cath to be removed and signed off. Offered pt EGD/colonoscopy to be done tomorrow to further evaluate anemia- she is declining GI procedures. States she will follow up with her doctor at [facility] outpatient after DC. Last EGD and colonoscopy were approx 3 years ago and reports normal findings. (03/11) Pt anxious to be going home. No GI complaints at this time. Per RN pt failed walk test and yesterday and therefore DC was held, however she passed today and attending is planning on sendin her home. As previously mentioned pt declining inpatient endoscopic procedures that were offered, states wants to follow up outpatient with [facility] Plan: - OK to DC from a GI standpoint - Have pt follow up with GI after DC Pt has been seen and examined by myself and Dr. Delatorre and this note is written on his behalf (Gemini Borja) Plan Agree with above assessment and plan, patient will follow up with her before school babysitter as an outpatient for evaluation of anemia and possible endoscopy and colonoscopy, continue low-fat diet, continue controlling her triglycerides (Melina Delatorre MD) Gemini Borja Mar 11, 2018 12:54 Melina Delatorre MD Mar 11, 2018 17:57
--- NOTE | 2018-03-11 14:35 | HHI.PR ---
Subjective Remarks Patient seen and examined. She had hypoxemia yesterday evening which held her discharge. She reports feeling much better today. She passed the home oxygen walk test. Objective Vitals Vital Signs Date Time Temp Pulse Resp B/P (MAP) Pulse Ox O2 Delivery O2 Flow Rate FiO2 03/11/18 12:05 98.1 100 18 152/69 (96) 95 03/11/18 08:00 90 03/11/18 07:56 93 Nasal Cannula 2.00 03/11/18 07:25 97.7 94 18 171/76 (107) 96 03/11/18 03:54 98 03/11/18 02:10 97.3 117 20 152/82 (105) 92 03/11/18 00:00 Nasal Cannula 4.00 03/10/18 23:49 100 03/10/18 21:09 94 Nasal Cannula 3.00 03/10/18 20:03 Nasal Cannula 4.00 03/10/18 20:00 115 03/10/18 19:28 97.8 107 20 169/75 (106) 97 03/10/18 17:16 163/73 (103) 03/10/18 16:26 2.00 03/10/18 16:20 97.8 103 20 192/81 (118) 94 03/10/18 16:00 Nasal Cannula 3.00 03/10/18 15:50 96 I/O 03/10/18 03/10/18 03/10/18 03/11/18 03/11/18 03/11/18 07:00 15:00 23:00 07:00 15:00 23:00 Intake Total 240 ml 940 ml 765 ml Output Total 1600 ml 650 ml Balance -1360 ml 940 ml 115 ml Intake Oral 240 ml 840 ml 480 ml IV Total 100 ml 285 ml Output Urine Total 1600 ml 650 ml # Voids 6 # Bowel Movements 0 1 0 Result Diagram: 03/10/18 0455 03/10/18 0455 Objective Remarks GENERAL: This is a well-nourished, well-developed patient, in no apparent distress. CARDIOVASCULAR: Normal rate and regular rhythm without murmurs, gallops, or rubs. RESPIRATORY: Good respiratory efforts. Breath sounds equal and clear to auscultation bilaterally. GASTROINTESTINAL: Abdomen soft, non-tender, non-distended. Normal active bowel sounds MUSCULOSKELETAL: Extremities without cyanosis, or edema. NEURO: Alert & Oriented x4 to person, place, time, situation. Moves all ext x4 PSYCH: Appropriate mood and affect. Procedures Plasmaphoresis A/P Problem List: (1) SIRS (systemic inflammatory response syndrome) ICD Code: R65.10 - Systemic inflammatory response syndrome (SIRS) of non- infectious origin without acute organ dysfunction (2) Pancreatitis ICD Code: K85.90 - Acute pancreatitis without necrosis or infection, unspecified (3) Chest pain ICD Code: R07.9 - Chest pain, unspecified (4) Hypocalcemia ICD Code: E83.51 - Hypocalcemia (5) Dehydration ICD Code: E86.0 - Dehydration (6) DM (diabetes mellitus) ICD Code: E11.9 - Type 2 diabetes mellitus without complications (7) Hypoxemia ICD Code: R09.02 - Hypoxemia Assessment and Plan Patient respiratory status has significantly improved. She is cleared for discharge. Resume discharge orders from yesterday. Discussed with RN. Ramona Breaux MD Mar 11, 2018 14:35
== END 2018-03-11 15:37 | disposition home or self-care (01) | DRG 439 ==
LOC: NEPE 16:17 → NEDA 23:54 → OBSVTOIN 03-06 01:26 → NEDA 03-06 02:33 → N04B 03-06 06:06 → HIMN 03-06 19:50 → N04B 03-09 23:57
PROVIDERS: ADMIT Family Medicine; ATTEND Family Medicine
PROC: 02HV33Z Insertion of Infusion Device into Superior Vena Cava, Percutaneous Approach (ICD-10-PCS; principal; 2018-03-06)
PROC: 6A550Z3 Pheresis of Plasma, Single (ICD-10-PCS; 2018-03-08)
PROC: 5A09357 Assistance with Respiratory Ventilation, Less than 24 Consecutive Hours, Continuous Positive Airway Pressure (ICD-10-PCS; 2018-03-08)
DX: K85.80 Other acute pancreatitis without necrosis or infection (principal); N39.0 Urinary tract infection, site not specified; E87.2 Acidosis; K35.80 Unspecified acute appendicitis; E83.51 Hypocalcemia; E83.52 Hypercalcemia; J98.11 Atelectasis; I10 Essential (primary) hypertension; E11.9 Type 2 diabetes mellitus without complications; D50.9 Iron deficiency anemia, unspecified; E78.5 Hyperlipidemia, unspecified; F32.9 Major depressive disorder, single episode, unspecified; K21.9 Gastro-esophageal reflux disease without esophagitis; E78.1 Pure hyperglyceridemia; E86.0 Dehydration; E78.00 Pure hypercholesterolemia, unspecified; F41.9 Anxiety disorder, unspecified; R06.82 Tachypnea, not elsewhere classified; R00.0 Tachycardia, unspecified; N95.0 Postmenopausal bleeding; F17.200 Nicotine dependence, unspecified, uncomplicated; K58.9 Irritable bowel syndrome, unspecified; R09.02 Hypoxemia; Z79.84 Long term (current) use of oral hypoglycemic drugs
CPT/HCPCS: 36514; 36556; 36600; 71045; 71275; 74177; 76937; 77001; 80053; 80061; 81001; 82550; 82805; 82948; 83036; 83690; 83735; 84100; 84478; 84484; 85007; 85014; 85018; 85025; 85027; 85384; 85610; 85730; 86850; 86900; 86901; 87641; 93005; 94002; 94003; 94150; 94618; 94640; 94664; 96361; 96374; 96375; 96376; C1752; J0360; J0610; J0696; J1170; J1200; J1644; J1815; J1940; J2060; J2270; J2405; J2765; J2930; J3010; J3475; J3480; J7030; J7050; P9045; Q9967